=== PATIENT | female | born 1940 | race American Indian/Alaskan Native ===

== ENCOUNTER 2016-11-26 16:17 | Emergency (ER) | payer OTHER ==
[~2016-11-26] VITALS: Ht 149.9 cm; Wt 79.4 kg
[~2016-11-26 16:17] MED LIST: ALBUTEROL2.5 MG/3 M INH; AMOXICILLIN500 MG PO; AZITHROMYCIN250 MG PO; BACTRIM DS TAB1 EACH PO; FLONASE2 SPRAY NS; KEFLEX500 MG PO; OMEPRAZOLE20 MG PO; PREDNISONE20 MG PO; PROAIR HFA8.5 GM INH; SINGULAIR10 MG PO; TYLENOL WITH C1 EACH PO
[2016-11-26] MEDS ORDERED: AZITHROMYCIN250 MG PO (16:31)
[2016-11-26] MEDS ORDERED: PREDNISONE20 MG PO (16:32)
[2016-11-26] MEDS ORDERED: SINGULAIR10 MG PO (16:33)
== END 2016-11-26 17:52 | disposition home or self-care (01) ==
LOC: ED 16:17
DX: J45.901 Unspecified asthma with (acute) exacerbation (principal); K21.9 Gastro-esophageal reflux disease without esophagitis; Z87.891 Personal history of nicotine dependence; Z90.49 Acquired absence of other specified parts of digestive tract; Z98.51 Tubal ligation status; Z88.5 Allergy status to narcotic agent; Z88.8 Allergy status to other drugs, medicaments and biological substances; Z79.899 Other long term (current) drug therapy
CPT/HCPCS: 71020; 94640; 94667; 99283

== ENCOUNTER 2016-11-26 22:38 | Emergency (ER) | payer OTHER ==
[~2016-11-26] VITALS: Ht 149.9 cm; Wt 79.4 kg
--- NOTE | 2016-11-27 17:03 | EKG ---
[facility] [address] [facility] [place], [place] [address] Signed Normal sinus rhythm ST \T\ T wave abnormality, consider anterolateral ischemia Abnormal ECG No previous ECGs available Confirmed by SILVA CHRISTOPHER MD ([id number]) on 11/27/2016 5:03:30 PM Electronically Signed By: SILVA CHRISTOPHER MD 11/27/16 1703 PATIENT NAME: WM BARGER Electrocardiogram DATE OF : 40 PHYSICIAN: SILVA CHRISTOPHER MD REPORT #: [id number] REPORT IS CONFIDENTIAL AND NOT TO BE RELEASED WITHOUT AUTHORIZATION
== END 2016-11-27 01:02 | disposition home or self-care (01) ==
LOC: ED 22:38
DX: J20.9 Acute bronchitis, unspecified (principal); J45.909 Unspecified asthma, uncomplicated; K21.9 Gastro-esophageal reflux disease without esophagitis; Z90.49 Acquired absence of other specified parts of digestive tract; Z90.89 Acquired absence of other organs; Z98.51 Tubal ligation status; Z88.5 Allergy status to narcotic agent; Z88.6 Allergy status to analgesic agent; Z88.8 Allergy status to other drugs, medicaments and biological substances; Z79.899 Other long term (current) drug therapy; Z79.52 Long term (current) use of systemic steroids
CPT/HCPCS: 80053; 83880; 84484; 85025; 93005; 93010; 99283

== ENCOUNTER 2016-12-02 11:10 | Emergency (ER) | payer OTHER ==
[~2016-12-02] VITALS: Ht 149.9 cm; Wt 74.8 kg
[2016-12-02] MEDS ORDERED: DIFLUCAN100 MG PO (11:26)
--- NOTE | 2016-12-02 20:23 | EKG ---
[facility] [address] [facility] [place], [place] [address] Signed Normal sinus rhythm Anterior infarct , age undetermined ST \T\ T wave abnormality, consider lateral ischemia Abnormal ECG When compared with ECG of 26-NOV-2016 23:47, No significant change was found Confirmed by TABBY MALDONADO MD ([id number]) on 12/02/2016 8:22:57 PM Electronically Signed By: TABBY MALDONADO MD 12/02/162022 PATIENT NAME: WM BARGER Electrocardiogram DATE OF : 40 PHYSICIAN: TABBY MALDONADO MD REPORT #: [id number] REPORT IS CONFIDENTIAL AND NOT TO BE RELEASED WITHOUT AUTHORIZATION
== END 2016-12-02 14:38 | disposition home or self-care (01) ==
LOC: ED 11:10
DX: J45.901 Unspecified asthma with (acute) exacerbation (principal); K21.9 Gastro-esophageal reflux disease without esophagitis; J44.9 Chronic obstructive pulmonary disease, unspecified; Z90.49 Acquired absence of other specified parts of digestive tract; Z98.51 Tubal ligation status; Z88.5 Allergy status to narcotic agent; Z88.8 Allergy status to other drugs, medicaments and biological substances; Z79.899 Other long term (current) drug therapy; Z79.52 Long term (current) use of systemic steroids
CPT/HCPCS: 71010; 80053; 83605; 84484; 85025; 87040; 93005; 93010; 94640; 96374; 99283; J2930

== ENCOUNTER 2016-12-06 10:19 | Emergency (ER) | payer OTHER ==
[~2016-12-06] VITALS: Ht 149.9 cm; Wt 74.8 kg
[~2016-12-06 10:19] MED LIST changes: +DIFLUCAN100 MG PO
[2016-12-06] MEDS ORDERED: IPRAT-ALBUT 0.5-3 ML INH (10:37)
[2016-12-06] MEDS ORDERED: XANAX0.25 MG PO (11:15)
--- NOTE | 2016-12-06 15:39 | EKG ---
[facility] [address] [facility] [place], [place] [address] Signed Normal sinus rhythm Anterior infarct (cited on or before 02-DEC-2016) ST \T\ T wave abnormality, consider lateral ischemia , similar to 12/02/16 EKG. Abnormal ECG When compared with ECG of 02-DEC-2016 11:18, No significant change was found Confirmed by SILVA CHRISTOPHER MD ([id number]) on 12/06/2016 3:39:30 PM Electronically Signed By: SILVA CHRISTOPHER MD 12/06/16 1539 PATIENT NAME: WM BARGER Electrocardiogram DATE OF : 40 PHYSICIAN: SILVA CHRISTOPHER MD REPORT #: [id number] REPORT IS CONFIDENTIAL AND NOT TO BE RELEASED WITHOUT AUTHORIZATION
== END 2016-12-06 11:50 | disposition home or self-care (01) ==
LOC: ED 10:19
DX: F41.9 Anxiety disorder, unspecified (principal); K21.9 Gastro-esophageal reflux disease without esophagitis; J44.9 Chronic obstructive pulmonary disease, unspecified; Z90.49 Acquired absence of other specified parts of digestive tract; Z98.51 Tubal ligation status; Z88.5 Allergy status to narcotic agent; Z88.8 Allergy status to other drugs, medicaments and biological substances; Z79.899 Other long term (current) drug therapy; Z79.52 Long term (current) use of systemic steroids
CPT/HCPCS: 93005; 93010; 94640; 99283

== ENCOUNTER 2019-04-19 13:35 | Emergency (ER) | payer MEDICARE, OTHER ==
[~2019-04-19] VITALS: Ht 149.9 cm; Wt 74.8 kg
--- OUTSIDE RECORDS SUMMARY | ~2019-04-19 | XMS | Encounter Summary ---
Demographics + + + | Address | [address] | | | [place] [address] | + + + | Home Phone | | + + + | Preferred Language | Unknown | + + + | Marital Status | | + + + | Jehovah'S Witness Affiliation | Unknown | + + + | Race | Unknown | + + + | Ethnic Group | Unknown | + + + Author + + + | Author | [facility] | | | and [place] | + + + | Organization | [facility] | | | and [place] | + + + | Address | Unknown | + + + | Phone | Unavailable | + + + Support + + + + + | Name | Relationship | Address | Phone | + + + + + Mark Kaba | ECON | [address] | | | | | [place] | | | | | [address] | | + + + + + | Radha Patino | ECON | Unknown | | + + + + + Care Team Providers + +------+ + | Care Bag Shaker Name | Role | Phone | + +------+ + PCP | Unavailable | + +------+ + Reason for Visit +--------+ + | Reason | Comments | +--------+ + | Other | 2Y post op call | +--------+ + Encounter Details +--------+ + + + + | Date | Type | Department | Care Team | Description | +--------+ + + + + | 08/21/ | Telephone | [facility] | Derick Zuniga | Other (2Y post op | | 2013 | | NEUROSURGERY [address] | [facility] [address] | call ) | | | | [address] | [place] | | | | | [place] | [address] | | | | | [address] | [phone] | | | | | [phone] | | | +--------+ + + + + Social History + +-------+ +--------+------+ | Tobacco Use | Types | Packs/Day | Years | Date | | | | | Used | | + +-------+ +--------+------+ | Never Assessed | | | | | + +-------+ +--------+------+ + + + | Sex Assigned at | Date Recorded | | | | + + + | Not on file | | + + + + + + + | Job Start Date | Occupation | Industry | + + + + | Not on file | Not on file | Not on file | + + + + + + + + | Travel History | Travel Start | Travel End | + + + + + + | No recent travel history available. | + + documented as of this encounter Plan of Treatment Not on filedocumented as of this encounter Visit Diagnoses Not on filedocumented in this encounter"
--- OUTSIDE RECORDS SUMMARY | ~2019-04-19 | XMS | Encounter Summary ---
Demographics + + + | Address | [address] | | | [place] [address] | + + + | Home Phone | | + + + | Preferred Language | Unknown | + + + | Marital Status | | + + + | Mormonism Affiliation | Unknown | + + + | Race | Unknown | + + + | Ethnic Group | Unknown | + + + Author + + + | Author | [facility] | | | and [place] | + + + | Organization | [facility] | | | and [place] | + + + | Address | Unknown | + + + | Phone | Unavailable | + + + Support + + + + + | Name | Relationship | Address | Phone | + + + + + Mark Kaba | ECON | [address] | | | | | [place] | | | | | [address] | | + + + + + | Radha Patino | ECON | Unknown | | + + + + + Care Team Providers + +------+ + | Care Gsa Coordinator Name | Role | Phone | + +------+ + | Jared Hahn PA-C | PCP | | + +------+ + Encounter Details +--------+ + + + + | Date | Type | Department | Care Team | Description | +--------+ + + + + | 12/08/ | Imaging | [facility] | Provider, | | | 2017 | Exam | [facility] EXTER[facility] | [facility] [place] [address] | | | | | IMAGING | [place] | | | | | [phone] | [place] [address] | | +--------+ + + + + Social History + +-------+ +--------+ + | Tobacco Use | Types | Packs/Day | Years | Date | | | | | Used | | + +-------+ +--------+ + | Former Smoker | | 0.01 | 2 | Quit: 01/07/1974 | + +-------+ +--------+ + + + | Comments: few puffs of tobacco as a teenager | + + + + +---------+ + | Alcohol Use | Drinks/Week | oz/Week | Comments | + + +---------+ + | No | | | | + + +---------+ + + + + | Sex Assigned at [...] Not on filedocumented as of this encounter Procedures + +--------+ + + + | Procedure Name | Priori | Date/Time | Associated Diagnosis | Comments | | | ty | | | | + +--------+ + + + | XR CHEST 2 VIEWS | Routin | 06/13/2016 | | Results for this | | | e | 1:55 AM | | procedure are in the | | | | PST | | results section. | + +--------+ + + + documented in this encounter Results XR Chest 2 VW (06/13/2016 1:55 AM PST) + + | Specimen | + + | | + + + + + | Narrative | Performed At | + + + | External films for comparison only - no result from [facility]. | [facility] | + + + + +---------+ + + | Performing | Address | City/State/Zipcode | Phone Number | | Organization | | | | + +---------+ + + | [facility] | | | | + +---------+ + + documented in this encounter Visit Diagnoses Not on filedocumented in this encounter"
--- OUTSIDE RECORDS SUMMARY | ~2019-04-19 | XMS | Encounter Summary ---
Demographics + + + | Address | [address] | | | [place] [address] | + + + | Home Phone | | + + + | Preferred Language | Unknown | + + + | Marital Status | | + + + | Druze Affiliation | Unknown | + + + | Race | Unknown | + + + | Ethnic Group | Unknown | + + + Author + + + | Author | [facility] | | | and [place] | + + + | Organization | [facility] | | | and [place] | + + + | Address | Unknown | + + + | Phone | Unavailable | + + + Support + + + + + | Name | Relationship | Address | Phone | + + + + + Mark Kaba | ECON | [address] | | | | | [place] | | | | | [address] | | + + + + + | Radha Patino | ECON | Unknown | | + + + + + Care Team Providers + +------+ + | Care Domestic Violence Counselor Name | Role | Phone | + +------+ + PCP | Unavailable | + +------+ + Encounter Details +--------+ + + + + | Date | Type | Department | Care Team | Description | +--------+ + + + + | 02/19/ | Hospital | [facility] | Eugene Cuevas MD | | | 2010 | Encounter | MED CTR MP INTRA OP | [address] [place] | | | | | [address] | [address] [place], [place] | | | | | [place], [place] | [address] | | | | | [address] | | | | | | [phone] | | | +--------+ + + + [...] | + +--------+ + + + | HELICOBACTER PYLORI | Routin | 02/19/2011 | | Results for this | | BIOPSY | e | 1:51 PM | | procedure are in the | | | | PDT | | results section. | + +--------+ + + + documented in this encounter Results Helicobactor pylori Biopsy (02/19/2011 1:51 PM PDT) + + + + + + | Component | Value | Ref Range | Performed | Pathologist | | | | | At | Signature | + + + + + + | [facility]STR[facility] | Negative for Urease | | [facility] | | | BIOPSY | | | [facility] | | | UREASE TEST | | | MEDICAL | | | | | | CENTER - | | | | | | LABORATORY | | + + + + + + + + | Specimen | + + | | + + + + + + + | Performing | Address | City/State/Zipcode | Phone Number | | Organization | | | | + + + + + | [facility] | [address] | [place] | [phone] | | [facility] | | [address] | | | - LABORATORY | | | | + + + + + | [facility] | [address] | [place] | | | [facility] | | [address] | | | - LABORATORY | | | | + + + + + documented in this encounter Visit Diagnoses Not on filedocumented in this encounter"
--- OUTSIDE RECORDS SUMMARY | ~2019-04-19 | XMS | Encounter Summary ---
Demographics + + + | Address | [address] | | | [place] [address] | + + + | Home Phone | | + + + | Preferred Language | Unknown | + + + | Marital Status | | + + + | Yarsanism Affiliation | Unknown | + + + | Race | Unknown | + + + | Ethnic Group | Unknown | + + + Author + + + | Author | [facility] | | | and [place] | + + + | Organization | [facility] | | | and [place] [...] [place] | | | | | [address] | | + + + + + | Radha Patino | ECON | Unknown | | + + + + + Care Team Providers + +------+ + | Care Briquetter Operator Name | Role | Phone | + +------+ + PCP | Unavailable | + +------+ + Encounter Details +--------+ + + + + | Date | Type | Department | Care Team | Description | +--------+ + + + + | 06/30/ | Hospital | [facility] | | | | 1993 | Encounter | MED CTR EMERGENCY | | | | | | CENTER [address] | | | | | | [place] | | | | | | [address] | | | | | | [phone] | | | +--------+ + + + [...]
--- OUTSIDE RECORDS SUMMARY | ~2019-04-19 | XMS | Encounter Summary ---
Demographics + + + | Address | [address] | | | [place] [address] | + + + | Home Phone | | + + + | Preferred Language | Unknown | + + + | Marital Status | | + + + | Pentecostal Affiliation | Unknown | + + + | Race | Unknown | + + + | Ethnic Group | Unknown | + + + Author + + + | Author | [facility] | | | and [place] | + + + | Organization | [facility] | | | and [place] | [...] [place] | | | | | [address] | | + + + + + | Radha Patino | ECON | Unknown | | + + + + + Care Team Providers + +------+ + | Care Compliance Attorney Name | Role | Phone | + +------+ + PCP | Unavailable | + +------+ + Encounter Details +--------+ + + + + | Date | Type | Department | Care Team | Description | +--------+ + + + + | 02/19/ | Hospital | [facility] | Eugene Cuevas MD | | | 2010 | Encounter | MED CTR MP INTRA OP | [address] [place] | | | | | [address] | [address] [place], [place] | | | | | [place], [place] | [address] | | | | | [address] | | | | | | [phone] | | | +--------+ + + + [...] [address] | [place] | [phone] | | [facility] | | [address] | | | - LABORATORY | | | | + + + + + | [facility] | [address] | [place] | | | [facility] | | [address] | | | - LABORATORY | | | | + + + + + documented in this encounter Visit Diagnoses Not on filedocumented in this encounter"
--- OUTSIDE RECORDS SUMMARY | ~2019-04-19 | XMS | Encounter Summary ---
Demographics + + + | Address | [address] | | | [place] [address] | + + + | Home Phone | | + + + | Preferred Language | Unknown | + + + | Marital Status | | + + + | Protestant Affiliation | Unknown | + + + | Race | Unknown | + + + | Ethnic Group | Unknown | + + + Author + + + | Author | [facility] | | | and [place] | + + + | Organization | [facility] | | | and [place] | [...] [place] | | | | | [address] | | + + + + + | Radha Patino | ECON | Unknown | | + + + + + Care Team Providers + +------+ + | Care Seo Consultant Name | Role | Phone | + +------+ + PCP | Unavailable | + +------+ + Encounter Details +--------+ + + + + | Date | Type | Department | Care Team | Description | +--------+ + + + + | 07/20/ | Hospital | [facility] | Derick Zuniga | | | 2011 - | Encounter | MED CTR SURGICAL | [place] | | | | | [address] [place] | [place] | | | 07/21/ | | [place] [address] | [address] | | | 2011 | | [phone] | [phone] | | | | | | | | +--------+ + + + [...] + +--------+ + + + | XR SPINE 1 VW | | 07/21/2011 | | Results for this | | | | 12:30 PM | | procedure are in the | | | | PDT | | results section. | + +--------+ + + + documented in this encounter Results XR Spine 1 Vw (07/21/2011 12:30 PM PDT) + + | Specimen | + + | | + + + + + | Narrative | Performed At | + + + | [facility] Diagnostic Imaging Department | [place] | | [address] [facility] | [facility] | | [facility] | DIAG IMG | | CLINICAL HISTORY: POSTOP C5-6 AND C6-7 ANTERIOR CERVICAL DISKECTOMY | | | AND FUSION. FINDINGS: Lateral views of the cervical spine show | | | an anterior compression plate extending from C5 t o C7. Interbody | | | bone grafts are present at C5-6 and C6-7. Alignment is normally | | | maintained. Degene rative changes are also seen at the C4-5 level | | | with sclerotic vertebral endplates. Adjacent soft tis sues within | | | the normal range. IMPRESSION: 1. ANTICIPATED POSTOP C5-6, C6-7 | | | ACDF CHANGES. Dictated Date/Time: 07/22/2011 11:12 Transcribed | | | Date/Time: 07/22/2011 11:27 Hydraulic Chair Assembler: | | | <Electronically Signed by Cesar Thomson MD> 07/22/11 1504 | | + + + + + | Procedure Note | + + | Steven, Rad Conversion - 06/08/2013 4:58 PM [facility] | | Diagnostic Imaging Department [address] [facility] | | LATERAL VIEW CERVICAL SPINE CLINICAL HISTORY: POSTOP | | C5-6 AND C6-7 ANTERIOR CERVICAL DISKECTOMY AND FUSION. FINDINGS: Lateral views of the | | cervical spine show an anterior compression plate extending from C5 to C7. Interbody | | bone grafts are present at C5-6 and C6-7. Alignment is normally maintained. | | Degenerative changes are also seen at the C4-5 level with sclerotic vertebral endplates. | | Adjacent soft tissues within the normal range. IMPRESSION: 1. ANTICIPATED POSTOP C5-6, | | C6-7 ACDF CHANGES. Dictated Date/Time: 07/22/2011 11:12Transcribed Date/Time: | | 07/22/2011 11:27Transcriptionist: <Electronically Signed by Cesar Thomson MD> | | 07/22/11 1504 | |o C7. Interbody bone grafts are present at C5-6 and C6-7. Alignment is normally maintaine d. Degene | |rative changes are also seen at the C4-5 level with sclerotic vertebral endplates. Adjacen t soft tis | |sues within the normal range. | | | |IMPRESSION: | |1. ANTICIPATED POSTOP C5-6, C6-7 ACDF CHANGES. | | | |Dictated Date/Time: 07/22/2011 11:12 | |Transcribed Date/Time: 07/22/2011 11:27 | |Hydraulic Chair Assembler: | |<Electronically Signed by Cesar Thomson MD> 07/22/11 1504 | + + + +---------+ + + | Performing | Address | City/State/Zipcode | Phone Number | | Organization | | | | + +---------+ + + | [place] | | | | | [place] | | | | + +---------+ + + documented in this encounter Visit Diagnoses Not on filedocumented in this encounter"
--- OUTSIDE RECORDS SUMMARY | ~2019-04-19 | XMS | Encounter Summary ---
Demographics + + + | Address | [address] | | | [place] [address] | + + + | Home Phone | | + + + | Preferred Language | Unknown | + + + | Marital Status | | + + + | Zoroastrian Affiliation | Unknown | + + + | Race | Unknown | + + + | Ethnic Group | Unknown | + + + Author + + + | Author | [facility] | | | and [place] | + + + | Organization | [facility] | | | and [place] [...] [place] | | | | | [address] | | + + + + + | Radha Patino | ECON | Unknown | | + + + + + Care Team Providers + +------+ + | Care Manager Willow Name | Role | Phone | + +------+ + PCP | Unavailable | + +------+ + Encounter Details +--------+ + + + + | Date | Type | Department | Care Team | Description | +--------+ + + + + | 01/12/ | Abstract | [facility] | [facility] | | | 2011 | | Conversion Location | SR | | | | | [phone] | | | +--------+ + + + [...] + + documented as of this encounter Last Filed Vital Signs + + + + + | Vital Sign | Reading | Time Taken | Comments | + + + + + | Blood Pressure | 120/72 | 02/11/2011 12:00 AM | | | | | PDT | | + + + + + | Pulse | - | - | | + + + + + | Temperature | - | - | | + + + + + | Respiratory Rate | - | - | | + + + + + | Oxygen Saturation | - | - | | + + + + + | Inhaled Oxygen | - | - | | | Concentration | | | | + + + + + | Weight | 78.5 kg (173 lb) | 02/11/2011 12:00 AM | | | | | PDT | | + + + + + | Height | 149.9 cm (4' 11") | 02/11/2011 12:00 AM | | | | | PDT | | + + + + + | Body Mass Index | 34.94 | 02/11/2011 12:00 AM | | | | | PDT | | + + + + + documented in this encounter Plan of Treatment Not on filedocumented as of this encounter Visit Diagnoses Not on filedocumented in this encounter
--- OUTSIDE RECORDS SUMMARY | ~2019-04-19 | XMS | Encounter Summary ---
Demographics + + + | Address | [address] | | | [place] [address] | + + + | Home Phone | | + + + | Preferred Language | Unknown | + + + | Marital Status | | + + + | Cheondoism Affiliation | Unknown | + + + | Race | Unknown | + + + | Ethnic Group | Unknown | + + + Author + + + | Author | [facility] | | | and [place] | + + + | Organization | [facility] | | | and [place] | + + + | Address | Unknown | + + + | Phone | Unavailable | + + + Support + + + + + | Name | Relationship | Address | Phone | + + + + + Mark Kaba | ECON | [address] | | | | | [place] | | | | | [address] | | + + + + + | Radha Patino | ECON | Unknown | | + + + + + Care Team Providers + +------+ + | Care Kindergarten Paraprofessional Name | Role | Phone | + +------+ + | Caro Clement PA-C | PCP | | + +------+ + Reason for Visit +--------+ + | Reason | Comments | +--------+ + | Asthma | 6 mo follow up | +--------+ + Evaluate & Treat (Routine) +--------+--------+ + + + + | Status | Reason | Specialty | Diagnoses / | Referred By | Referred To | | | | | Procedures | Contact | Contact | +--------+--------+ + + + + | Closed | | Pulmonary | Diagnoses | Urbano, | Jermaine, | | | | Disease / | Moderate | Caro Roach, | MD Terry | | | | Pulmonology | persistent | PA-C [address] | [address] | | | | | asthma, | | [place], | | | | | uncomplicate | [place] | [place] [address] | | | | | d | WAY | Phone: | | | | | Procedures | [place], | [phone] | | | | | F[address] | [place] [address] | Fax: | | | | | CHAYITO DEAN | Phone: | [phone] | | | | | 01/20/18 | [phone] | | | | | | | Fax: | | | | | | | [phone] | | +--------+--------+ + + + + Encounter Details +--------+---------+ + + + | Date | Type | Department | Care Team | Description | +--------+---------+ + + + | 01/20/ | Office | [facility] | Terry Dean, | Moderate persistent | | 2018 | Visit | PULMONARY [address] | MD [address] | asthma without | | | | [place], | [place] | complication | | | | [place] [address] | [address] | (Primary Dx) | | | | [phone] | | | +--------+---------+ + + + Social History + + + +--------+ + | Tobacco Use | Types | Packs/Day | Years | Date | | | | | Used | | + + + +--------+ + | Former Smoker | Cigarettes | 0.01 | 2 | 11/27/1961 - | | | | | | 01/07/1974 | + + + +--------+ + + +---+---+---+ | Smokeless Tobacco: | | | | | Never Used | | | | + +---+---+---+ + + +---------+ + | Alcohol Use [...] + + + | Blood Pressure | 124/68 | 01/20/2018 2:56 PM | | | | | PDT | | + + + + + | Pulse | 87 | 01/20/2018 2:56 PM | | | | | PDT | | + + + + + | Temperature | - | - | | + + + + + | Respiratory Rate | - | - | | + + + + + | Oxygen Saturation | 95% | 01/20/2018 2:56 PM | Room Air | | | | PDT | | + + + + + | Inhaled Oxygen | - | - | | | Concentration | | | | + + + + + | Weight | 75.5 kg (166 lb 7.2 | 01/20/2018 2:56 PM | | | | oz) | PDT | | + + + + + | Height | 148.6 cm (4' 10.5") | 01/20/2018 2:56 PM | | | | | PDT | | + + + + + | Body Mass Index | 34.2 | 01/20/2018 2:56 PM | | | | | PDT | | + + + + + documented in this encounter Patient Instructions Patient Instructions Terry Dean MD - 01/20/2018 3:00 PM PDT Asthma (Adult) Asthma is a disease where the medium and small air passages within the lung go into spasm and restrict the flow of air. Inflammation and swelling of the airways cause further blocka ge. During an acute asthma attack, these factors cause trouble breathing, wheezing, cough an d chest tightness. An asthma attack can be triggered by many things. Common triggers include infections such a s the common cold, bronchitis, and pneumonia. Irritants such as smoke or pollutants in the a ir, very cold air, emotional upset, and exercise can also trigger an attack. Inmany adults with asthma, allergies todust, mold, pollen and animal dander can cause an asthma attack. Skipping doses of daily asthma medicine can also bring on an asthma attack. Asthma can be controlled using theproper medicines prescribed by your healthcare provider and avoiding exposure to known triggers including allergens and irritants. Home care Take prescribed medicine exactly at the times advised. If you need medicine such as from a hand held inhaler or aerosol breathing machine more than every 4 hours, contact your [facility] provider or seek immediate medical attention. If prescribed an antibiotic or predniso ne, take all of the medicine as prescribed, even if you are feeling better after a few days. Don't smoke. Avoid being exposed to the smoke of others. Some people with asthma have worsening of their symptoms when they take aspirin and non- steroidal or fever-reducing medicines like ibuprofen and naproxen. Talk to your healthcare p mel[place] if you think this may apply to you. Follow-up care Follow up with your healthcare provider, or as advised. Always bring all of your current me dicines to any appointments with your healthcare provider. Also bring a complete list of med icines eventhose not taken for asthma. If you don't already have one, talk to your health are provider about developing your own "Asthma Action Plan." A pneumococcal (pneumonia)vaccine and yearly flu shot (every fall) are recommended. Ask y our doctor about this. When to seek medical advice Call your healthcare provider right away if any of these occur: Increased wheezing or shortness of breath Need to use your inhalers more often than usual without relief Fever of 100.4F (38C) or higher, or as directed by your healthcare provider Coughing up lots of dark-colored or bloody sputum (mucus) Chest pain with each breath If you use a peak flow meter as part of an Asthma Action Plan, and you are still in the yellow zone (50% to 80%) 15 minutes after using inhaler medicine. Call 911 Call 911 if any of the following occur Trouble walking or talking because of shortness of breath If you use a peak flow meter as part of an Asthma Action Plan andyou are still in the red zone (less than 50%) 15 minutes after using inhaler medicine Lips or fingernails turning garvin or blue Date Last Reviewed: 08/30/201619996986-8657 [employer]. [address] [place] [address]. All righ ts reserved. This information is not intended as a substitute for professional medical care. Always follow your healthcare professional's instructions. documented in this encounter Progress Notes Terry Dean MD - 01/20/2018 3:00 PM PDTFormatting of this note might be different f rom the original. Pulmonary Follow Up 01/20/2018 HPI Sherron Patino is a 77 y.o. female patient of Caro Clement PA-C here tosam for follow up of asthma. The patient's last visit was on 07/19/17. Since the last visit she feels like their asthma has been stable. They have not had any acute illnesses resulting in worsening asthma sympto ms. They have not required a burst of prednisone since our last appointment. Specifically 0 tapers of prednisone have occurred over the interval. Lastly Sherron notes 0 ED visits and 0 hospitalizations for asthma have occurred since the last appointment. Their controller medication regimen currently consists of Dulera and Singulair. They do fe el like this medication regimen is effective at controlling their symptoms. Currently Sherron is using their rescue albuterol, Proventil, 0 times a day. No Duoneb use of late. Triggers of their asthma include smokey air conditions. She does not have nocturnal sympto ms of wheezing, chest tightness or cough. She does not measure their peak flow. Currently Sherron reports being able to walk <50 feet at their own pace on level ground befor e becoming symptomatic from right knee. They are not exercising regularly. She does not cough chronically, and does not produce mucous. Sherron does not report symptoms of heartburn or acid reflux. They have not had recent sympto ms of nasal congestion, runny nose or post nasal drip. New triggers since the last appointment include -none. Sherron Patino is not smoking cigarettes. The patient have received this year's influenza vaccination. They are up to date with thei r Pneumovax and Prevnar 13. Past Medical History Past Medical History: Diagnosis Date Abdominal hernia Acid reflux disease Allergic rhinitis Alopecia Arthritis Left knee Asthma 2003 Carpal tunnel syndrome Left Cervicalgia Chronic right shoulder pain COPD (chronic obstructive pulmonary disease) ([facility]) patient unware of diagnosis Degenerative joint disease of sacroiliac joint Dermatophytosis of left foot Enthesopathy of hip Right Esophageal reflux Lumbar scoliosis Obesity Osteoarthritis Vitamin D deficiency Allergies: Allergies Allergen Reactions Meclizine Hcl Swelling "Throat started closing up" Hydrocodone Nausea And Vomiting Ibuprofen Nausea And Vomiting Oxycodone Nausea And Vomiting Propoxyphene Nausea And Vomiting Medications: Current Outpatient Prescriptions: albuterol (PROVENTIL HFA) 90 mcg/puff inhaler, Inhale 2 puffs into the lungs every 4 h ours as needed for Wheezing or Shortness of Breath., Disp: , Rfl: albuterol-ipratropium (DUONEB) 2.5-0.5 mg/3 mL SOLN, Take 3 mLs by nebulization every 4 hours as needed., Disp: 360 mL, Rfl: famotidine (PEPCID) 20 mg tablet, Take 20 mg by mouth 2 times daily., Disp: , Rfl: fluticasone (FLONASE) 50 mcg/nasal spray, 1 spray by Each Nare route Daily., Disp: , R fl: loratadine (CLARITIN) 10 mg tablet, Take 10 mg by mouth Daily as needed for Allergies. , Disp: , Rfl: mometasone-formoterol (DULERA) 200-5 mcg/puff inhaler, Inhale 2 puffs into the lungs T wice Daily., Disp: 8.8 g, Rfl: 5 montelukast (SINGULAIR) 10 mg tablet, Take 10 mg by mouth nightly., Disp: , Rfl: Immunizations: Immunization History Administered Date(s) Administered INFLUENZA 65 Y OR >, TRIVALENT HIGH-DOSE 01/12/2016, 02/14/2017, 01/04/2018 INFLUENZA PF 18 Y OR >,TRIVALENT RECOMBINANT 01/30/2014 PNEUMOCOCCAL CONJUGATE 13-VALENT (PCV13) 01/12/2016 PNEUMOCOCCAL POLYSACCHARIDE 23-VALENT (PPSV23) 02/11/1998, 02/12/2003, 06/18/2009 Objective BP 124/68 | Pulse 87 | Ht 1.486 m (4' 10.5") | Wt 75.5 kg (166 lb 7.2 oz) | SpO2 95% Co mment: Room Air | BMI 34.20 kg/m Appearance: Alert, cooperative, no distress, appears stated age. Head: Normocephalic, without obvious abnormality, atraumatic. Eyes: PERRL, conjunctiva/corneas clear. Nose: Nares normal, septum midline, mucosa normal, no drainage or sinus tenderness. Throat: Lips, mucosa, and tongue normal. Teeth/dentures normal. No thrush. Neck: Supple, symmetrical, no JVD. Lungs: No accessory muscle use, breath sounds are clear to auscultation bilaterally, no w heezes, crackles or rhonchi. No dullness to percussion. Chest Wall: No tenderness or deformity. Heart: Regular rate and rhythm, S1, S2 normal, no murmur, rub or gallop. Extremities: Extremities normal, atraumatic, no cyanosis, clubbing. none edema. Skin: Warm and dry. Lymph nodes: Cervical and supraclavicular nodes normal. Neurologic: Gait normal. Data Assessment 1. Asthma moderate persistent. Over the last 6 months Ms. Patino has not experienced symptoms concerning for worsening of her asthma. The patient continues to use Dulera 200/5 twice daily and Singulair nightly. Ms. Patino is up-to-date with respect to her seasonal influenza vaccination, Prevnar and Pneumovax. Overall it appears that the patient is had 1 2 exacerbations of her asthma over the last 12 13 months. It seems reasonable to maintain the patient's current controller regimen. If her symptoms remain well controlled over the next 12 months it would be reasonable to step down her asthm a therapy. Plan 1. Continue Dulera and Singulair as noted above. 2. The interval between pulmonary clinic follow-up appointments will be lengthened to 12 m onths. 3. High-dose seasonal influenza vaccination is recommended for January 2019. CC: [facility]bar-C documented in this encounter Plan of Treatment Not on filedocumented as of this encounter Visit Diagnoses + + | Diagnosis | + + | Moderate persistent asthma without complication - Primary Unspecified asthma | + + documented in this encounter
--- OUTSIDE RECORDS SUMMARY | ~2019-04-19 | XMS | Clinical Summary ---
Demographics + + + | Address | [address] | | | [place] [address] | + + + | Home Phone | | + + + | Preferred Language | Unknown | + + + | Marital Status | | + + + | Restorationism Affiliation | Unknown | + + + | Race | Unknown | + + + | Ethnic Group | Unknown | + + + Author + + + | Author | [facility] | | | and [place] | + + + | Organization | [facility] | | | and [place] | [...] [place] | | | | | [address] | | + + + + + | Radha Patino | ECON | Unknown | | + + + + + Care Team Providers + +------+ + | Care Erection Shop Supervisor Name | Role | Phone | + +------+ + | Caro Clement PA-C | PCP | | + +------+ + Allergies + + + + + + | Active Allergy | Reactions | Severity | Noted | Comments | | | | | Date | | + + + + + + | Hydrocodone | Nausea And Vomiting | Low | | | + + + + + + | Ibuprofen | Nausea And Vomiting | Low | | | + + + + + + | Meclizine Hcl | Swelling | High | 05/29/19 | "Throat started | | | | | 15 | closing up" | + + + + + + | Oxycodone | Nausea And Vomiting | Low | | | + + + + + + | Propoxyphene | Nausea And Vomiting | Low | | | + + + + + + Medications + + + +---------+------+------+-------+ | Medication | Sig | Dispensed | Refills | Star | End | Statu | | | | | | t | Date | s | | | | | | Date | | | + + + +---------+------+------+-------+ | loratadine | Take 10 mg by mouth | | 0 | | | Activ | | (CLARITIN) 10 mg | Daily as needed for | | | | | e | | tablet | Allergies. | | | | | | + + + +---------+------+------+-------+ | albuterol | Inhale 2 puffs into | | 0 | | | Activ | | (PROVENTIL HFA) 90 | the lungs every 4 | | | | | e | | mcg/puff inhaler | hours as needed for | | | | | | | | Wheezing or | | | | | | | | Shortness of Breath. | | | | | | + + + +---------+------+------+-------+ | fluticasone | 1 spray by Each Nare | | 0 | | | Activ | | (FLONASE) 50 | route Daily. | | | | | e | | mcg/nasal spray | | | | | | | + + + +---------+------+------+-------+ | montelukast | Take 10 mg by mouth | | 0 | | | Activ | | (SINGULAIR) 10 mg | nightly. | | | | | e | | tablet | | | | | | | + + + +---------+------+------+-------+ | famotidine | Take 20 mg by mouth | | 0 | | | Activ | | (PEPCID) 20 mg | 2 times daily. | | | | | e | | tablet | | | | | | | + + + +---------+------+------+-------+ | | Take 3 mLs by | 360 mL | 0 | 08/2 | | Activ | | albuterol-ipratropiu | nebulization every 4 | | | 9/20 | | e | | m (DUONEB) 2.5-0.5 | hours as needed. | | | 17 | | | | mg/3 mL SOLN | | | | | | | + + + +---------+------+------+-------+ | | Inhale 2 puffs into | 8.8 g | 5 | 05/2 | | Activ | | mometasone-formotero | the lungs Twice | | | 3/20 | | e | | l (DULERA) 200-5 | Daily. 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 utility | + + + +---+ | OSTEOARTHRITIS | | + +---+ | FATTY LIVER DISEASE | | + +---+ | ABDOMINAL PAIN | | + +---+ Resolved Problems + + + + | Problem | Noted | Resolved | | | Date | Date | + + + + | Moderate persistent asthma with acute exacerbation | 07/20/19 | | | | 18 | 8 | + + + + | COPD (chronic obstructive pulmonary disease) | 05/07/19 | | | | 15 | 7 | + + + + | Asthma exacerbation | 05/07/19 | | | | 15 | 7 | + + + + Immunizations + + + + | Name | Administration Dates | Next Due | + + + + | INFLUENZA 65 Y OR >, | 01/04/2018, 02/14/2017, 01/12/2016 | | | TRIVALENT HIGH-DOSE | | | + + + + | INFLUENZA PF 18 Y OR | 01/30/2014 | | | >,TRIVALENT | | | | RECOMBINANT | | | + + + + | PNEUMOCOCCAL | 01/12/2016 | | | CONJUGATE 13-VALENT | | | | (PCV13) | | | + + + + | PNEUMOCOCCAL | 06/18/2009, 02/12/2003, 02/11/1998 | | | POLYSACCHARIDE | | | | 23-VALENT (PPSV23) | | | + + + + Family History + + +------+ + | Medical History | Relation | Name | Comments | + + +------+ + | Diabetes, IDDM | Brother | | | + + +------+ + | * | Father | | in 50's | + + +------+ + | Cirrhosis | Father | | | + + +------+ + | * | Mother | | healthy and at 94 | + + +------+ + + +------+ + + | Relation | Name | Status | Comments | + +------+ + + | Brother | | | | + +------+ + + | Father | | | | + +------+ + + | Mother | | | | + +------+ + + Social History + + + [...] | | | + +---+---+---+ + + | Tobacco Cessation: Counseling Given: No | + + + + +---------+ + [...] recent travel history available. | + + Last Filed Vital Signs + + + [...] + + + + | Temperature | 36.3 C (97.3 F) | 12/01/2016 7:09 AM | | | | | PDT | | + + + + + | Respiratory Rate | 18 | 12/01/2016 8:00 AM | | | | | PDT [...] | | + + + + + Plan of Treatment + + + + + | Health Maintenance | Due Date | Last Done | Comments | + + + + + | Vaccine: | | | | | Dtap/Tdap/Td (1 - | 2 | | | | Tdap) | | | | + + + + + | Vaccine: Zoster (1 | | | | | of 2) | 1 | | | + + + + + | Breast Cancer | | | | | Screening | 6 | | | + + + + + | Adult Annual | | | | | Wellness Visit | 5 | | | + + + + + | Vaccine: Influenza | | 01/04/2018, 02/14/2017, | | | (#1) | 9 | 01/12/2016, Additional history | | | | | exists | | + + + + + | Vaccine: | Completed | 01/12/2016, 06/18/2009, | | | Pneumococcal 65+ | | 02/12/2003, Additional history | | | | | exists | | + + + + + Results Not on filefrom Last 3 Months Insurance + +--------+ +--------+-------+---------+--------+ | Payer | Benefi | Subscriber | Effect | Phone | Address | Type | | | t Plan | ID | dean | | | | | | / | | Dates | | | | | | Group | | | | | | + +--------+ +--------+-------+---------+--------+ | [facility] | S | [id number] | | | | Indemn | | SERVICE | YELLOW | | 014-Pr | | | ity | | | HAWK | | esent | | | | + +--------+ +--------+-------+---------+--------+ + +--------+ +--------+ + + | Guarantor Name | Accoun | Relation to | Date | Phone | Billing Address | | | t Type | Patient | of | | | | | | | | | | + +--------+ +--------+ + + | Sherron Patino | Person | Self [birth year] | [address] | | [place] | elsa/Seun | | 1941 | [phone] | [place] [address] | | | sahil | | | 5 (Home) | | + +--------+ +--------+ + + Advance Directives + + + + + | Type | Date Recorded | Patient | Explanation | | | | Music Executive | | + + + + + | Power of | | | | | Wood Router Hand | | | | + + + + + | Advance | 11/27/2016 6:51 | | | | Directive | AM | | | + + + + + + + + + + | Code Status | Date | Date | Comments | | | Activated | Inactivated | | + + + + + | Full Code | 11/27/2016 | 12/01/2016 | | | | 8:35 AM | 3:06 PM | | + + + + + + + + +---+ | | | | | + + + +---+ | Full Code | 11/27/2016 | 11/27/2016 | | | | 8:35 AM | 8:35 AM | | + + + +---+
--- OUTSIDE RECORDS SUMMARY | ~2019-04-19 | XMS | Clinical Summary ---
Demographics + + + | Address | [address] | | | [place] [address] | + + + | Home Phone | | + + + | Preferred Language | Unknown | + + + | Marital Status | | + + + | Mosque Affiliation | Unknown | + + + | Race | Unknown | + + + | Ethnic Group | Unknown | + + + Author + + + | Author | [facility] | | | and [place] | + + + | Organization | [facility] | | [...] [place] | | | | | [address] | | + + + + + | Radha Patino | ECON | Unknown | | + + + + + Care Team Providers + +------+ + | Care Roll Plugger Machine Operator Name | Role | Phone | [...] + + + | Overview: Problem list crane engineer utility | + + + +---+ | [...] | | | + +--------+ +--------+-------+---------+--------+ | [facility] | S | [id number] | | | | Indemn | | [...] | 1941 | [phone] | [place] [address] | | | sahil | | | 5 (Home) | | + +--------+ +--------+ + + Advance Directives + + + + + | Type | Date Recorded | Patient | Explanation | | | | Md Ophthalmologist | | + + + + + | Power of | | | | | Creative Engagement Director | | | | + + + [...]
--- OUTSIDE RECORDS SUMMARY | ~2019-04-19 | XMS | Encounter Summary ---
Demographics + + + | Address | [address] | | | [place] [address] | + + + | Home Phone | | + + + | Preferred Language | Unknown | + + + | Marital Status | | + + + | Latter Day Affiliation | Unknown | + + + | Race | Unknown | + + + | Ethnic Group | Unknown | + + + Author + + + | Author | [facility] | | | and [place] | + + + | Organization | [facility] | | | and [place] | + + + | Address | Unknown | + + + | Phone | Unavailable | + + + Support + + + + + | Name | Relationship | Address | Phone | + + + + + Mark Kaab | ECON | [address] | | | | | [place] | | | | | [address] | | + + + + + | Radha Patino | ECON | Unknown | | + + + + + Care Team Providers + +------+ + | Care Billet Shearer Name | Role | Phone | + +------+ + PCP | Unavailable | + +------+ + Encounter Details +--------+ + + + + | Date | Type | Department | Care Team | Description | +--------+ + + + + | 02/18/ | Hospital | [facility] | Davi Whitten | HEADACHE | | 2002 | Encounter | CON[address] | C MD | | | | | [address] | | | | | | [place] | | | | | | [address] | | | | | | [phone] | | | +--------+ + + + [...] + | Diagnosis | + + | Headache(784.0) Headache | + + documented in this encounter"
--- OUTSIDE RECORDS SUMMARY | ~2019-04-19 | XMS | Encounter Summary ---
Demographics + + + | Address | [address] | | | [place] [address] | + + + | Home Phone | | + + + | Preferred Language | Unknown | + + + | Marital Status | | + + + | Confucianist Affiliation | Unknown | + + + | Race | Unknown | + + + | Ethnic Group | Unknown | + + + Author + + + | Author | [facility] | | | and [place] | + + + | Organization | [facility] | | | and [place] [...] [place] | | | | | [address] | | + + + + + | Radha Patino | ECON | Unknown | | + + + + + Care Team Providers + +------+ + | Care Chemical Detection Expert Name | Role | Phone | + [...] | SR | | | | | [phone] | | | +--------+ + + + [...]
--- OUTSIDE RECORDS SUMMARY | ~2019-04-19 | XMS | Encounter Summary ---
Demographics + + + | Address | [address] | | | [place] [address] | + + + | Home Phone | | + + + | Preferred Language | Unknown | + + + | Marital Status | | + + + | Adventism Affiliation | Unknown | + + + | Race | Unknown | + + + | Ethnic Group | Unknown | + + + Author + + + | Author | [facility] | | | and [place] | + + + | Organization | [facility] | | | and [...] [place] | | | | | [address] | | + + + + + | Radha Patino | ECON | Unknown | | + + + + + Care Team Providers + +------+ + | Care Roller Cleaner Name | Role | Phone | + +------+ + | Caro Clement PA-C PCP | | + +------+ + Reason for Visit + + + | Reason | Comments | + + + | Medication Refill | | + + + Encounter Details +--------+--------+ + + + | Date | Type | Department | Care Team | Description | +--------+--------+ + + + | 09/21/ | Refill | [facility] | Terry Dean, | Medication Refill | | 2017 | | PULMONARY [address] | MD [address] | | | | | [place], | [place], [place] | | | | | [place] [address] | [address] | | | | | [phone] | | | +--------+--------+ + + + Social History + + [...] + | Moderate persistent asthma without complication Unspecified asthma | + + documented in this encounter"
--- OUTSIDE RECORDS SUMMARY | ~2019-04-19 | XMS | Encounter Summary ---
Demographics + + + | Address | [address] | | | [place] [address] | + + + | Home Phone | | + + + | Preferred Language | Unknown | + + + | Marital Status | | + + + | Islam Affiliation | Unknown | + + + | Race | Unknown | + + + | Ethnic Group | Unknown | + + + Author + + + | Author | [facility] | | | and [place] | + + + | Organization | [facility] | | | and [place] [...] [place] | | | | | [address] | | + + + + + | Radha Patino | ECON | Unknown | | + + + + + Care Team Providers + +------+ + | Care Metal Reclamation Kettle Tender Name | Role | Phone | + +------+ + PCP | Unavailable | + +------+ + Encounter Details +--------+ + + + + | Date | Type | Department | Care Team | Description | +--------+ + + + + | 06/30/ | Hospital | [facility] | | | | 1993 | Encounter | [facility] | | | | | C[facility] [address] | | | | | | [place] | | | | | | [address] | | | | | | [phone] | | | +--------+ + + + [...]
--- OUTSIDE RECORDS SUMMARY | ~2019-04-19 | XMS | Encounter Summary ---
Demographics + + + | Address | [address] | | | [place] [address] | + + + | Home Phone | | + + + | Preferred Language | Unknown | + + + | Marital Status | | + + + | Gnosticist Affiliation | Unknown | + + + | Race | Unknown | + + + | Ethnic Group | Unknown | + + + Author + + + | Author | [facility] | | | and [place] | + + + | Organization | [facility] | | | and [place] [...] [place] | | | | | [address] | | + + + + + | Radha Patino | ECON | Unknown | | + + + + + Care Team Providers + +------+ + | Care Electrical Power Engineer Name | Role | Phone | + [...] [address] | | | | | [place], | [place], [place] | | | | | [place] [address] | [address] | | | | | [phone] | | | +--------+--------+ + + + [...]
--- OUTSIDE RECORDS SUMMARY | ~2019-04-19 | XMS | Encounter Summary ---
Demographics + + + | Address | [address] | | | [place] [address] | + + + | Home Phone | | + + + | Preferred Language | Unknown | + + + | Marital Status | | + + + | Yazdanism Affiliation | Unknown | + + + | Race | Unknown | + + + | Ethnic Group | Unknown | + + + Author + + + | Author | [facility] | | | and [place] | + + + | Organization | [facility] | | | and [place] [...] [place] | | | | | [address] | | + + + + + | Radha Patino | ECON | Unknown | | + + + + + Care Team Providers + +------+ + | Care Cop Breaker Name | Role | Phone | + +------+ + | Jared Hahn PA-C | PCP | | + +------+ + Reason for Visit +--------+ + | Reason | Comments | +--------+ + | Asthma | 3 wk follow up | +--------+ + Evaluate & Treat (Routine) +--------+--------+ + + + + | Status | Reason | Specialty | Diagnoses / | Referred By | Referred To | | | | | Procedures | Contact | Contact | +--------+--------+ + + + + | Closed | | Pulmonary | Diagnoses | Jovani, | Jermaine, | | | | Disease / | Chronic | Jared East, | MD Terry | | | | Pulmonology | obstructive | PA-C [address] | [address] | | | | | pulmonary | [place] | [place], | | | | | disease, | WAY | [place] [address] | | | | | unspecified | Lilian, | Phone: | | | | | ([facility]) | [place] [address] | [phone] | | | | | Procedures | Phone: | Fax: | | | | | F/U | [phone] | [phone] | | | | | | Fax: | | | | | | | [phone] | | +--------+--------+ + + + + Encounter Details +--------+---------+ + + + | Date | Type | Department | Care Team | Description | +--------+---------+ + + + | 01/18/ | [facility] | Terry Dean, | Moderate persistent | | 2017 | Visit | PULMONARY [address] | MD [address] | asthma without | | | | [place], | [place], [place] | complication | | | | [place] [address] | [address] | (Primary Dx) | | | | [phone] | | | +--------+---------+ + + + [...] + + + | Blood Pressure | 120/70 | 01/18/2017 2:44 PM | | | | | PDT | | + + + + + | Pulse | 86 | 01/18/2017 2:44 PM | | | | | PDT | | + + + + + | Temperature | - | - | | + + + + + | Respiratory Rate | - | - | | + + + + + | Oxygen Saturation | 96% | 01/18/2017 2:44 PM | | | | | PDT | | + + + + + | Inhaled Oxygen | - | - | | | Concentration | | | | + + + + + | Weight | 78.3 kg (172 lb 11.2 | 01/18/2017 2:44 PM | | | | oz) | PDT | | + + + + + | Height | 149.9 cm (4' 11") | 01/18/2017 2:44 PM | | | | | PDT | | + + + + + | Body Mass Index | 34.88 | 01/18/2017 2:44 PM | | | | | PDT | | + + + + + documented in this encounter Patient Instructions Patient Instructions Terry Dean MD - 01/18/2017 3:00 PM PDT Asthma (Adult) Asthma is a disease where the medium and small air passages within the lung go into spasm and restrict the flow of air. Inflammation and swelling of the airways cause further restri ction. During an acute asthma attack, these factors cause difficulty breathing, wheezing, co ugh and chest tightness. An asthma attack can be triggered by many things. Common triggers include infections such a s the common cold, bronchitis, pneumonia. Irritants such as smoke or pollutants in the air, emotional upset, and exercise can also trigger an attack. Inmany adults with asthma, aller gies todust, mold, pollen and animal dander can [...] more than every 4 hours, contact [facility] or seek immediate medical attention. If prescribed an antibiotic or predniso ne, take all of the medicine as prescribed, even if you are feeling better after a few days. Do not smoke. Avoid being exposed to the smoke [...] Also bring a complete list of med ications eventhose not taken for asthma. If you do not already have one, talk to your [facility] about developing a personalized "Asthma Action Plan." A pneumococcal (pneumonia)vaccine and [...] turning garvin or blue Date Last Reviewed: 04/02/[id number] [employer]. [address] [place] [address], [place] [id number]. All righ ts reserved. This information is not intended as a substitute for professional medical care. Always follow your healthcare professional's instructions. documented in this encounter Progress Notes Terry Dean MD - 01/18/2017 3:00 PM PDTFormatting of this note might be different f rom the original. Pulmonary Follow Up 01/18/2017 HPI Sherron Patino is a 76 y.o. female patient of Jared Hahn PA-C here today fo r follow up of asthma. The patient's last visit was on 12/28/16. Ms. Patino states that her asthma has signific antly improved since her last clinic appointment at which time we initiated Dulera and we wi ll of Asmanex. Since the last visit she feels like their asthma has been decreasing. They have not had a ny acute illnesses resulting in worsening asthma symptoms. They have not required a burst o f prednisone since our last appointment. Specifically 0 tapers of prednisone have occurred over the interval. Lastly Sherron notes 0 ED visits and 0 hospitalizations for asthma have oc curred since the last appointment. Their controller medication regimen currently consists of Dulera. They do not feel like th is medication regimen is effective at controlling their symptoms. Currently Sherron is using their rescue albuterol, Proventil, 0-1 times a week. They have albuterol for use in a Duone b nebulizer and use it 0-1 times a week. Triggers of their asthma include smoke, upper respiratory tract infections. She does not h ave nocturnal symptoms of wheezing, chest tightness or cough. She does not measure their pe ak flow. Currently Sherron reports being able to walk 2 block at their own pace on level ground before becoming symptomatic from right knee. They are not exercising regularly. Current exercise consists of walking. She does not cough chronically, and does not produce mucous. Sherron does not report symptoms of heartburn or acid reflux. They have not had recent sympto ms of nasal congestion, runny nose or post nasal drip. Sherron Patino is not smoking cigarettes. The patient have not received this year's influenza vaccination. They are up to date with their Pneumovax and Prevnar 13. No issues are reported with the use of Dulera. Past Medical History Past Medical History: Diagnosis Date Abdominal hernia Acid reflux disease Allergic rhinitis Alopecia Arthritis Left knee Asthma 2004 Carpal tunnel syndrome Left Cervicalgia Chronic right shoulder pain COPD (chronic obstructive pulmonary disease) ([facility]) patient unware of diagnosis Degenerative joint disease [...] T wice Daily., Disp: 8.8 g, Rfl: 0 montelukast (SINGULAIR) 10 mg tablet, Take 10 mg by mouth nightly., Disp: , Rfl: Immunizations: Immunization History Administered Date(s) Administered INFLUENZA 65 Y OR >, TRIVALENT HIGH-DOSE 01/12/2016 INFLUENZA PF 18 Y OR >,TRIVALENT RECOMBINANT 01/30/2014 PNEUMOCOCCAL CONJUGATE 13-VALENT (PCV13) 01/12/2016 PNEUMOCOCCAL POLYSACCHARIDE 23-VALENT (PPSV23) 02/11/1998, 02/12/2003, 06/18/2009 Objective BP 120/70 | Pulse 86 | Ht 1.499 m (4' 11") | Wt 78.3 kg (172 lb 11.2 oz) | SpO2 96% | ? No | BMI 34.88 kg/m Appearance: Alert, cooperative, no distress, appears [...] and supraclavicular nodes normal. Neurologic: Gait normal. Data: None Assessment 1. Asthma moderate persistent. Significant improvement of the patient's symptoms has oc curred with the substitution of Dulera for Asmanex. The patient's use of her nebulizer/mete red-dose inhaler at all but ceased. After extensive discussion we decided to continue with Dulera. If the patient's symptoms r emain stable over the next 6 months it would be reasonable to step down the strength of her Dulera. Lastly Ms. Ptaino plans to receive a seasonal influenza vaccination at [facility] within the next several weeks. Plan 1. Continue Dulera 200/5, 2 puffs twice daily. 2. High-dose seasonal influenza vaccination January 2017. 3. Pulmonary clinic follow-up appointment in 6 months time CC: RAF Johnston-C documented in this encounter Plan of Treatment Not on filedocumented as of this encounter Visit Diagnoses + + | Diagnosis | + + | Moderate persistent asthma without complication - Primary Unspecified asthma | + + documented in this encounter
--- OUTSIDE RECORDS SUMMARY | ~2019-04-19 | XMS | Encounter Summary ---
Demographics + + + | Address | [address] | | | [place] [address] | + + + | Home Phone | | + + + | Preferred Language | Unknown | + + + | Marital Status | | + + + | Catholic Affiliation | Unknown | + + + | Race | Unknown | + + + | Ethnic Group | Unknown | + + + Author + + + | Author | [facility] | | | and [place] | + + + | Organization | [facility] | | | and [place]ana [...] [place] | | | | | [address] | | + + + + + | Radha Patino | ECON | Unknown | | + + + + + Care Team Providers + +------+ + | Care Chief Executive Officer Name | Role | Phone | + +------+ + | Jared Hahn PA-C | PCP | | + +------+ + Reason for Visit +--------+ + | Reason | Comments | +--------+ + | Asthma | Hospital Follow up | +--------+ + Evaluate & Treat (Routine) +--------+--------+ + + + + | Status | Reason | Specialty | Diagnoses / | Referred By | Referred To | | | | | Procedures | Contact | Contact | +--------+--------+ + + + + | Closed | | Pulmonary | Diagnoses | Jovani, | Jermaine | | | | Disease / | HOSP F/U | Jared East, | MD Terry | | | | Pulmonology | PER Y'S | PA-C [address] | [address] | | | | | REQUEST/FILM | [place] | [place] | | | | | S | [place] | [place] [address] | | | | | DAIVD/ | Lilian | Phone: | | | | | NEEDS 1/2 | [place] [address] | [phone] | | | | | BUT AT 1130 | Phone: | Fax: | | | | | TIME | [phone] | [phone] | | | | | Procedures | Fax: | | | | | | OFFICE VISIT | [phone] | | | | | | REGULAR | | | +--------+--------+ + + + + Encounter Details +--------+---------+ + + + | Date | Type | Department | Care Team | Description | +--------+---------+ + + + | 12/28/ | Office | [facility] | Terry Dean, | Moderate persistent | | 2017 | Visit | PULMONARY [address] | MD [address] | asthma without | | | | [place], | [place] | complication | | | | [place] [address] | [address] | | | | | [phone] | | | +--------+---------+ + + + [...] + + + | Blood Pressure | 122/80 | 12/28/2016 11:14 AM | | | | | PDT | | + + + + + | Pulse | 92 | 12/28/2016 11:14 AM | | | | | PDT | | + + + + + | Temperature | - | - | | + + + + + | Respiratory Rate | - | - | | + + + + + | Oxygen Saturation | 94% | 12/28/2016 11:14 AM | | | | | PDT | | + + + + + | Inhaled Oxygen | - | - | | | Concentration | | | | + + + + + | Weight | 76.8 kg (169 lb 6.4 | 12/28/2016 11:14 AM | | | | oz) | PDT | | + + + + + | Height | 149.9 cm (4' 11") | 12/28/2016 11:14 AM | | | | | PDT | | + + + + + | Body Mass Index | 34.21 | 12/28/2016 11:14 AM | | | | | PDT | | + + + + + documented in this encounter Patient Instructions Patient Instructions Terry Dean MD - 12/28/2016 11:30 AM PDT Dulera (Formoterol; Mometasone) metered dose inhaler What is this medicine? FORMOTEROL; MOMETASONE (for SHONDA cox; john MET a sone) inhalation is a combination of two medicines that decrease inflammation and help to open up the airways in your lungs. It is us ed to treat asthma. Do NOT use in an acute asthma attack. How should I use this medicine? This medicine is inhaled through the mouth. Follow the directions on the prescription label . Rinse your mouth with water after use. Make sure not to swallow the water. Take your medic ine at regular intervals. Do not take your medicine more often than directed. Do not stop ta janene except on your doctor's advice. Make sure that you are using your inhaler correctly. As k your doctor or health care provider if you have any questions. A special MedGuide will be given to you by the pharmacist with each prescription and refill . Be sure to read this information carefully each time. Talk to your transmission supervisor regarding the use of this medicine in children. Special care may be needed. What side effects may I notice from receiving this medicine? Side effects that you should report to your doctor or health lpn care manager as soon as p ossible: allergic reactions like skin rash or hives, swelling of the face, lips, or tongue breathing problems chest pain dizziness or lightheaded fever or chills high blood pressure irregular heartbeat vision problems Side effects that usually do not require medical attention (Report these to your doctor or health lpn care manager if they continue or are bothersome.): coughing, hoarseness, throat irritation different taste in mouth headache nervousness stomach upset stuffy nose tremor What may interact with this medicine? Do not take this medicine with any of the following mediations: MAOIs like Carbex, Eldepryl, Marplan, Nardil, and Parnate This medicine may also interact with the following medications: aminophylline or theophylline antiviral medicines for HIV or AIDS certain antibiotics like clarithromycin, linezolid, and telithromycin certain medicines for blood pressure, heart disease, or irregular heart beat certain medicines for colds certain medicines for depression or emotional conditions certain medicines for fungal infections like ketoconazole and itraconazole diuretics other medicines for breathing problems What if I miss a dose? If you miss a dose, use it as soon as you remember. If it is almost time for your next dose , use only that dose and continue with your regular schedule, spacing doses evenly. Do not u se double or extra doses. Where should I keep my medicine? Keep out of the reach of children. Store at room temperature between 59 and 86 degrees F (15 and 30 degrees C). Throw away the inhaler after the dose counter reaches 0 or after the expiration date, whichever comes firs t. Avoid exposure to heat, fire, and flame. What should I tell my health care provider before I take this medicine? They need to know if you have any of these conditions: adrenal tumor aneurysm bone problems diabetes glaucoma heart disease or irregular heartbeat high blood pressure immune system problems infection seizures thyroid problems worsening asthma an unusual or allergic reaction to formoterol, mometasone, other medicines, foods, dyes, or preservatives or trying to get breast-feeding What should I watch for while using this medicine? Visit your doctor for regular check ups. Tell your doctor or health lpn care manager if yo ur symptoms do not get better. If your symptoms get worse or if you need your short-acting i nhalers more often, call your doctor right away. Do not use this medicine more than every 12 hours. If you have asthma, be aware that using this medicine may increase your risk of dying from asthma-related problems. Talk to your doctor about the risks and benefits of taking this med icine. NEVER use this medicine for an acute asthma attack. This medicine may increase your risk of getting an infection. Tell your doctor or health ca re professional if you are around anyone with measles or chickenpox, or if you develop sores or blisters that do not heal properly. NOTE:This sheet is a summary. It may not cover all possible information. If you have questi ons about this medicine, talk to your doctor, pharmacist, or health care provider. Copyright 2017 [employer] Standard documented in this encounter Progress Notes Terry Dean MD - 12/28/2016 11:30 AM PDTFormatting of this note might be different f rom the original. Pulmonary Follow Up 12/28/2016 HPI Sherron Patino is a 75 y.o. female patient of Jared Hahn PA-C here today fo r follow up of asthma. The patient's last visit was on 06/18/14. Since the last visit she feels like their asthma has been significantly fluctuating. At the time of the patient's last clinic appointment we initiated Asmanex in addition to her standard Singulair. Pulmonary clinic follow-[facility] was scheduled for 6 months but was canceled. Ms. Patino noted that she did well until May 2016. In May the patient developed worsening asthma which was treated with prednisone for approximately 16 days. Her symptoms ultimately returned to baseline. In mid May the patient developed increased symptoms w hich were initially treated with prednisone and azithromycin. The patient's symptoms did no t improve and she was ultimately hospitalized at [facility] on . At the time of discharge patient was given 5 additional days of prednisone. A sputum cultu re grew Jemima albicans which was treated with 14 days of fluconazole. Over the last 3 weeks yasmeen Patino has been using her DuoNeb frequently. For the most pa rt she has not been using her Proventil. The patient's current medication regimen consists of Asmanex 220 g per puff, 2 puffs twic e daily and Singulair. Currently Sherron is using their rescue albuterol, Proventil, 0 times a day. They have albut ling/ipratropium for use in a nebulizer and use it 4-5 times a day. Triggers of their asthma include URIs. She does have nocturnal symptoms of wheezing, chest tightness or cough. She does measure their peak flow. PF is about 200 now with baseline at 250. Currently Sherron reports being able to walk several hundred feet at their own pace on level ground before becoming symptomatic. They are not exercising regularly. . She does cough chronically, and does produce mucous. The mucous is clear in color. Sherron does not report symptoms of heartburn or acid reflux. They have not had recent sympto ms of nasal congestion, runny nose or post nasal drip. New triggers since the last appointment include smoke. Sherron Patino is not smoking cigarettes. The patient have received this year's influenza vaccination. They are up to date with thei r Pneumovax and Prevnar 13. The patient described 2 separate episodes of what sounds like laryngospasm in association w ith her most recent illness in October 2016. The symptoms have not recurred. Past Medical History Past Medical History: Diagnosis Date Abdominal hernia Acid reflux disease Allergic rhinitis Alopecia Arthritis Left knee Asthma 2003 Carpal tunnel syndrome Left Cervicalgia Chronic right shoulder pain COPD (chronic obstructive pulmonary disease) ([facility]) patient unware of diagnosis Degenerative joint disease of sacroiliac joint Dermatophytosis of left foot Enthesopathy of hip Right Esophageal reflux Lumbar scoliosis Obesity Osteoarthritis Vitamin D deficiency Allergies: Allergies Allergen Reactions Hydrocodone Ibuprofen Meclizine Hcl Oxycodone Propoxyphene Medications: Current Outpatient Prescriptions: albuterol (PROVENTIL HFA) 90 mcg/puff inhaler, Inhale 2 puffs into the lungs every 4 h ours as needed for Wheezing or Shortness of Breath., Disp: , Rfl: albuterol-ipratropium (DUONEB) 2.5-0.5 mg/3 mL SOLN, Take 3 mLs by nebulization every 6 hours., Disp: , Rfl: famotidine (PEPCID) 20 mg tablet, Take 20 mg by mouth 2 times daily., Disp: , Rfl: fluticasone (FLONASE) 50 mcg/nasal spray, 1 spray by Each Nare route Daily., Disp: , R fl: loratadine (CLARITIN) 10 mg tablet, Take 10 mg by mouth Daily as needed for Allergies. , Disp: , Rfl: mometasone (ASMANEX) 220 mcg/puff inhaler, Inhale 2 puffs into the lungs 2 times daily ., Disp: , Rfl: montelukast (SINGULAIR) 10 mg tablet, Take 10 mg by mouth nightly., Disp: , Rfl: Immunizations: Immunization History Administered Date(s) Administered INFLUENZA 65 Y OR >, TRIVALENT HIGH-DOSE 01/12/2016 INFLUENZA PF 18 Y OR >,TRIVALENT RECOMBINANT 01/30/2014 PNEUMOCOCCAL CONJUGATE 13-VALENT (PCV13) 01/12/2016 PNEUMOCOCCAL POLYSACCHARIDE 23-VALENT (PPSV23) 06/18/2009 Objective BP 122/80 | Pulse 92 | Ht 1.499 m (4' 11") | Wt 76.8 kg (169 lb 6.4 oz) | SpO2 94% | B reastfeeding? No | BMI 34.21 kg/m Appearance: Alert, cooperative, no distress, appears [...] supraclavicular nodes normal. Neurologic: Gait normal. Data: Records from the patient's recent hospitalization and from the [facility] were revi ewed. A CT scan of the chest from 11/27/16 was reviewed. Mild atelectatic changes are noted in th e lingula and lower lobes bilaterally. Otherwise no significant pulmonary abnormalities. Assessment 1. Asthma moderate persistent. Currently treated with Asmanex and Singulair. The patie marva was last seen in our office approximately 2.5 years ago. For the most part Ms. Sukumar james has been well controlled with the above noted medication regimen. However since May 2016 the patient has had 2 apparent asthma exacerbations 1 which required hospitalization. The patient symptoms have improved she continues to use frequent short acting bronchodilato rs in the form of a nebulizer. A CT scan related the patient's recent hospitalization did not show evidence of pulmonary e mboli or other conditions to cause a worsening pulmonary status. At this point in time it is reasonable to work under the assumption that the patient needs further intensification of her asthma medication regimen. If this does not seem to signifi cantly improve the patient's symptoms/asthma exacerbation frequency that it be reasonable to broaden the differential and consider additional diagnoses. Given the recent symptoms this would include ABPA or paradoxical vocal cord motion. Total duration of the patient's clinic appointment was in excess of 30 minutes. Greater th an 50% time was spent in counseling related to asthma management. Plan 1. Initiate Dulera 200/5, 2 puffs twice daily 2. Discontinue Asmanex. 3. The patient will continue to use Singulair. 4. Her DuoNeb will be changed to every 4 hours as needed. 5. Pulmonary clinic follow-up appointment to assess the status of the patient's symptoms i n 3 weeks' time. CC: RAF Johnston-C documented in this encounter Plan of Treatment Not on filedocumented as of this encounter Visit Diagnoses + + | Diagnosis | + + | Moderate persistent asthma without complication Unspecified asthma | + + documented in this encounter
--- OUTSIDE RECORDS SUMMARY | ~2019-04-19 | XMS | Encounter Summary ---
Demographics + + + | Address | [address] | | | [place] [address] | + + + | Home Phone | | + + + | Preferred Language | Unknown | + + + | Marital Status | | + + + | Quaker Affiliation | Unknown | + + + | Race | Unknown | + + + | Ethnic Group | Unknown | + + + Author + + + | Author | [facility] | | | and [place] | + + + | Organization | [facility] | | | and [place] | [...] [place] | | | | | [address] | | + + + + + | Radha Patino | ECON | Unknown | | + + + + + Care Team Providers + +------+ + | Care Climatology Teacher Name | Role | Phone | + +------+ + | Jared Hahn PA-C | PCP | | + +------+ + Encounter Details +--------+ + + + + | Date | Type | Department | Care Team | Description | +--------+ + + + + | 05/07/ | Abstract | [facility] | Terry Dean, | COPD (chronic | | 2015 | | PULMONARY [address] | MD [address] | obstructive | | | | [place], | [place], [place] | pulmonary disease) | | | | [place] [address] | [address] | (HCC) (Primary Dx) | | | | [phone] | | | +--------+ + + + + Social History + +-------+ +--------+ + | Tobacco Use | Types | Packs/Day | Years | Date | | | | | Used | | + +-------+ +--------+ + | Former Smoker | | | | Quit: 01/07/1974 | + +-------+ +--------+ + + + +---------+ + | Alcohol Use | Drinks/Week | oz/Week | Comments | + + +---------+ + | Not Asked | | | | + + +---------+ [...] + | Diagnosis | + + | COPD (chronic obstructive pulmonary disease) (HCC) - Primary Chronic airway | | obstruction, not elsewhere classified | + + documented in this encounter"
--- OUTSIDE RECORDS SUMMARY | ~2019-04-19 | XMS | Encounter Summary ---
Demographics + + + | Address | [address] | | | [place] [address] | + + + | Home Phone | | + + + | Preferred Language | Unknown | + + + | Marital Status | | + + + | Mormonism Affiliation | Unknown | + + + | Race | Unknown | + + + | Ethnic Group | Unknown | + + + Author + + + | Author | [facility] | | | and [place] | + + + | Organization | [facility] | | | and [place] | [...] [place] | | | | | [address] | | + + + + + | Radha Patino | ECON | Unknown | | + + + + + Care Team Providers + +------+ + | Care Torch Burner Name | Role | Phone | + +------+ + | Jared Hahn PA-C | PCP | | + +------+ + Reason for Visit + + + | Reason | Comments | + + + | Wrist Pain | Left wrist pain | + + + Evaluate & Treat (Routine) +--------+--------+ + + + + | Status | Reason | Specialty | Diagnoses / | Referred By | Referred To | | | | | Procedures | Contact | Contact | +--------+--------+ + + + + | Closed | | Physical | Diagnoses | | Yashira, | | | | Medicine and | Disturbance | Yashira, | Farhan Carmen MD | | | | Rehabilitatio | of skin | Farhan Carmen MD | [address] | | | | n | sensation | [address] | [place] | | | | | Procedures | [place] | [facility], [place] | | | | | [place] | [facility], [place] | [address] Phone: | | | | | &/SENS 1-2 | [address] | [phone] | | | | | NRV CNDJ | Phone: | Fax: | | | | | PRECONF | [phone] | [phone] | | | | | [place] | Fax: | | | | | | EMG-left | [phone] | | | | | | wrist, CTS, | | | | | | | positive | | | | | | | Phalens | | | | | | | referred by | | | | | | | Jared | | | | | | | Jovani shore | | | | | | | Ryan | | | +--------+--------+ + + + + Encounter Details +--------+ + + + + | Date | Type | Department | Care Team | Description | +--------+ + + + + | 01/07/ | Procedure | [facility] | Farhan Ac | Left wrist pain | | 2013 | visit | PHYSIATRY [address] | TMD [address] | (Primary Dx); | | | | [facility] [place], | [facility], [place] | Paresthesias in left | | | | [place] [address] | [address] | hand | | | | [phone] | | | +--------+ + + + [...] + + + | Blood Pressure | 128/79 | 01/07/2014 9:18 AM | | | | | PDT | | + + + + + | Pulse | 75 | 01/07/2014 9:18 AM | | | | | PDT [...] Weight | 78.5 kg (173 lb) | 01/07/2014 9:18 AM | | | | | PDT | | + + + + + | Height | 149.9 cm (4' 11") | 01/07/2014 9:18 AM | | | | | PDT | | + + + + + | Body Mass Index | 34.94 | 01/07/2014 9:18 AM | | | | | PDT | | + + + + + documented in this encounter Progress Notes Farhan Ac MD - 01/07/2014 6:34 PM PDT [facility] Musculoskeletal, Sports and Spine, Physiatry [address] [address] Test Date: 01/07/2014 Patient Name: Sherron Patino : 1940 Physician: Farhan Ac MD MR #: [id number] Sex: Female Referring Physician: Arcenio Hahn PA-C HISTORY: The patient is a pleasant 72 year-old right-handed female who is being seen today at the request of Arcenio Hahn PA-C for complaints of numbness and tingling in the le ft hand. The patient's symptoms have improved significantly recently. She had a flare up i october after taking a CPR class. The numbness involves the 1st-3rd digits. She does also g et some wrist pain. After the flare up she did wear carpal tunnel splints on both sides and that did help. She had a prior carpal tunnel release in early 2012. That surgery was quit e successful. The patient denies any history of diabetes, hypothyroidism, alcohol abuse or cancer. Nerve Conduction Studies Anti Sensory Summary Table Site NR Peak (ms) Norm Peak (ms) P-T Amp (V) Norm P-T Amp Site1 Site2 Delta-P (ms) Dist (cm) Александр (m/s) Norm Александр (m/s) Left Radial Anti Sensory (Base 1st Digit) Wrist 1.8 <3.1 56.4 Wrist Base 1st Digit 1.8 0.0 Motor Summary Table Site NR Onset (ms) Norm Onset (ms) O-P Amp (mV) Norm O-P Amp Site1 Site2 Delta-0 (ms) Dist (cm) Александр (m/s) Norm Александр (m/s) Left Median Motor (Abd Poll Brev) Wrist 3.3 <4.2 *4.2 >5 Elbow Wrist 3.0 17.0 57 >50 Elbow 6.3 3.7 Left Ulnar Motor (Abd Dig Minimi) Wrist 2.3 <4.2 10.3 >3 B Elbow Wrist 2.4 15.0 62 >53 B Elbow 4.7 10.4 A Elbow B Elbow 1.9 10.0 53 >53 A Elbow 6.6 9.5 Comparison Summary Table Site NR Peak (ms) Norm Peak (ms) P-T Amp (V) Site1 Site2 Delta-P (ms) Norm Delta (ms) Left Median/Ulnar Palm Comparison (Wrist - 8cm) Median Palm 1.9 <2.2 65.9 Median Palm Ulnar Palm 0.1 <0.3 Ulnar Palm 1.8 <2.2 18.4 EMG Side Muscle Nerve Root Ins Act Fibs Psw Amp Dur Poly Recrt Int Pat Comment Left Deltoid Axillary C5-6 Nml Nml Nml Nml Nml 0 Nml Nml Left Biceps Musculocut C5-6 Nml Nml Nml Nml Nml 0 Nml Nml Left Triceps Radial C6-7-8 Nml Nml Nml Nml Nml 0 Nml Nml Left PronatorTeres Median C6-7 Nml Nml Nml Nml Nml 0 Nml Nml Left 1stDorInt Ulnar C8-T1 Nml Nml Nml Nml Nml 0 Nml Nml Nerve Conduction Studies Motor Left/Right Comparison Site L Lat (ms) R Lat (ms) L-R Lat (ms) L Amp (mV) R Amp (mV) L-R Amp (%) Site1 Site2 L Ve l (m/s) R Александр (m/s) L-R Александр (m/s) Median Motor (Abd Poll Brev) Wrist 3.3 *4.2 Elbow Wrist 57 Elbow 6.3 3.7 Ulnar Motor (Abd Dig Minimi) Wrist 2.3 10.3 B Elbow Wrist 62 B Elbow 4.7 10.4 A Elbow B Elbow 53 A Elbow 6.6 9.5 Anti Sensory Left/Right Comparison Site L Lat (ms) R Lat (ms) L-R Lat (ms) L Amp (V) R Amp (V) L-R Amp (%) Site1 Site2 L Александр (m/s) R Александр (m/s) L-R Александр (m/s) Radial Anti Sensory (Base 1st Digit) Wrist 1.8 56.4 Wrist Base 1st Digit Comparison Left/Right Comparison Site L Lat (ms) R Lat (ms) L-R Lat (ms) L Amp (V) R Amp (V) L-R Amp (%) Median/Ulnar Palm Comparison (Wrist - 8cm) Median Palm 1.9 65.9 Ulnar Palm 1.8 18.4 NCV FINDINGS: Evaluation of the Left median motor nerve showed slightly reduced amplitude which in and of itself is a non-specific finding. All remaining nerves (as indicated in the preceding tabl es) were within normal limits. EMG FINDINGS: All examined muscles (as indicated in the preceding table) showed no evidence of electrical instability. IMPRESSION: EMG and nerve conduction studies were within normal limits with no electrodiagnostic eviden ce of median neuropathy (carpal tunnel syndrome), ulnar neuropathy, cervical radiculopathy, brachial plexopathy or peripheral neuropathy. The patient s symptoms have mostly resolved with conservative treatment. I do not believ e any additional neurologic work-up is indicated at this time. She will follow-up with her PCP as needed. Thank you for allowing me to perform neurodiagnostic testing on your patient. If you have a ny further questions or comments, please do not hesitate to call. Farhan Ac MD Fellow, [employer]. documented in this encounter Plan of Treatment Not on filedocumented as of this encounter Visit Diagnoses + + | Diagnosis | + + | Left wrist pain - Primary Pain in joint, forearm | + + | Paresthesias in left hand Disturbance of skin sensation | + + documented in this encounter
--- OUTSIDE RECORDS SUMMARY | ~2019-04-19 | XMS | Encounter Summary ---
Demographics + + + | Address | [address] | | | [place] [address] | + + + | Home Phone | | + + + | Preferred Language | Unknown | + + + | Marital Status | | + + + | Cheondoism Affiliation | Unknown | + + + | Race | Unknown | + + + | Ethnic Group | Unknown | + + + Author + + + | Author | [facility] | | | and Kemarana | + + + | Organization | [facility] | | | and [...] [place] | | | | | [address] | | + + + + + | Radha Patino | ECON | Unknown | | + + + + + Care Team Providers + +------+ + | Care Veterinary X Ray Operator Name | Role | Phone | + +------+ + | Jared Hahn PA-C | PCP | | + +------+ + Reason for Visit + + + | Reason | Comments | + + + | Establish Care | | + + + Evaluate & Treat (Routine) +--------+--------+ + + + + | Status | Reason | Specialty | Diagnoses / | Referred By | Referred To | | | | | Procedures | Contact | Contact | +--------+--------+ + + + + | Closed | | Pulmonary | Diagnoses | Sineath, | Jermaine, | | | | Disease / | Chronic | MARY Travis | MD Terry | | | | Pulmonology | airway | [address] | [address] | | | | | obstruction, | [address]VE [place] | [place], | | | | | not | [place], [place] | [place] [address] | | | | | elsewhere | [address] | Phone: | | | | | classified | Phone: | [phone] | | | | | Extrinsic | [phone] | Fax: | | | | | asthma, | Fax: | [phone] | | | | | unspecified | [phone] | | | | | | Procedures | | | | | | | [place] OFFICE | | | | | | | OUTPATIENT | | | | | | | NEW 60 | | | | | | | MINUTES DRAWING SUPERVISOR | | | | | | | DATE OF | | | | | | | SERVICE | | | | | | | 06/21/14 | | | +--------+--------+ + + + + Encounter Details +--------+---------+ + + + | Date | Type | Department | Care Team | Description | +--------+---------+ + + + | 06/18/ | Office | [facility] | Terry Dean, | Asthma, moderate | | 2015 | Visit | PULMONARY [address] | MD [address] | persistent, | | | | [place], | [place], [place] | uncomplicated | | | | [place] [phone] | [phone] | (Primary Dx) | | | | [phone] | | | +--------+---------+ + + + Social History + +-------+ [...] + + + | Blood Pressure | 126/78 | 06/18/2014 2:24 PM | | | | | PST | | + + + + + | Pulse | 70 | 06/18/2014 2:24 PM | | | | | PST | | + + + + + | Temperature | 37.1 C (98.8 F) | 06/18/2014 2:24 PM | | | | | PST | | + + + + + | Respiratory Rate | - | - | | + + + + + | Oxygen Saturation | 95% | 06/18/2014 2:24 PM | | | | | PST | | + + + + + | Inhaled Oxygen | - | - | | | Concentration | | | | + + + + + | Weight | 76.8 kg (169 lb 4.8 | 06/18/2014 2:24 PM | | | | oz) | PST | | + + + + + | Height | 149.9 cm (4' 11") | 06/18/2014 2:24 PM | | | | | PST | | + + + + + | Body Mass Index | 34.19 | 06/18/2014 2:24 PM | | | | | PST | | + + + + + documented in this encounter Patient Instructions Patient Instructions Terry Dean MD - 06/18/2014 3:16 PM PST Understanding Asthma Asthma causes swelling and narrowing of the airways in your lungs. No one is exactly sure w hat causes asthma. It is believed to be a combination of inherited and environmental factors . Healthy lungs Inside the lungs there are branching airways made of stretchy tissue. Each airway is wrappe d with bands of muscle. The airways are more narrow as they go deeper into the lungs. The sm allest airways end in clusters of tiny balloon-like air sacs (alveoli). These clusters are s urrounded by blood vessels. When you inhale (breathe in), air enters the lungs. It travels d own through the airways until it reaches the air sacs. When you exhale (breathe out), air tr avels up through the airways and out of the lungs. The airways produce mucus that traps part icles you breathe in. Normally, the mucus is then swept out of the lungs, by tiny hairs (cil ia) that line the airways, to be swallowed or coughed up. What the lungs do The air you inhale contains oxygen. Whenoxygen reaches the air sacs, it passes into the b lood vessels surrounding the sacs. Your blood then delivers oxygen to all of your cells. Car bon dioxide is removed from the body in a similar way, as you exhale. When you have asthma 1. Tightened muscle 2. Swollen lining 3. Increasedmucus People with asthma have very sensitive airways. This means the airways react to certain thi ngs called triggers (such as pollen, dust, or smoke)and become swollen and narrowed. Infla mmation makes the airways swollen and narrowed. This is a chronic (long-lasting or recurring ) problem. The airways may not always be narrowed enough tonotice breathing problems. Symptoms of chronic inflammation: Coughing Chest tightness Shortness of breath Wheezing (a whistling noise, especially when breathing out) Low energy or feeling tired Over time, chronic mild inflammation can lead to permanent scarring of airways and loss of lung function. Moderate flare-ups When sensitive airways are irritated by a trigger, the muscles around the airways tighten. The lining of the airways swells. Thick, sticky mucus increases and clogs the airways. All o f this makes you work harder to keep breathing. Symptoms of moderate flare-ups: Coughing, especially at night Getting tired or out of breath easily Wheezing Chest tightness Faster breathing when at rest Severe flare-ups Severe flare-ups are life-threatening. They can cause brain damage or . In a severe flare-up, the muscle tightening, swelling, and mucus production are even worse. Breathing is extremely difficult. Your body can't get enough oxygen and can't remove carbon dioxide. Was te gas is trapped in the alveoli, and gas exchange can t occur. The body is not getting en ough oxygen. Without oxygen, body tissues, especially brain tissue, begin to . If this go es on for long, it can lead to brain damage or . Call 911, or have someone call for you, if you have any of these symptoms and they are not relieved right away by taking your quick-relief medication as prescribed: Severe difficulty breathing Being too short of breath to talk or walk Lips or fingers turning blue Feeling lightheaded or dizzy,as though you are about to pass out Peak flow less than 50% of your personal best, if you use peak flow monitoring Because asthma is a long-term condition, it is important to work with your health care prov ider to manage it. If you smoke, get help to quit. Know your triggers and figure out how to avoid them. And, it is very important that you take your medications as instructed. That gilberto ns taking them, even when you feel good. [id number] [employer]. [address] [place] [address]. All righ ts reserved. This information is not intended as a substitute for professional medical care. Always follow your healthcare professional's instructions. documented in this encounter Progress Notes Terry Dean MD - 06/18/2014 2:53 PM PSTFormatting of this note might be different f rom the original. Pulmonary Consult Note 06/18/2014 HPI Sherron Deanna Patino is a 73 y.o. female patient of Jared Hahn [facility] here today for evaluation of asthma. She notes that they first started having issues with their breathing approximately 10 years ago. At that time they presented with symptoms of wheezing and shortness of breath. The i nitial therapy consisted of Singulair and as needed albuterol. Over the years Ms. Paitno 's symptoms have been well-controlled on this regimen.. In the patient developed worsening shortness of breath associated wheezing . Her symptoms were not associated with an upper respiratory tract infection. She was seen in the clinic at [facility] and was prescribed approximately one week of prednisone. Her symptoms returned to baseline. Sherron went on to develop 2 episodes of sinusitis each treated with azithromycin. In late May her symptoms again worsened and on the she presented to the emergency department at [facility]. She was treated and discharged. The patient returned w [facility] 12 hours with persistent symptoms. Ultimately she received what sounded like a contin uous nebulizer for 1 hour. The patient was subsequently discharged with prednisone dose to 40 mg a day for 4 days and they plan to take Singulair. Since her discharge her asthma has been well controlled. Over the last 23 days the symptoms have been stable. Their baseline peak flow is I'm not. Their current peak flow is unknown. Sherron notes nocturnal symptoms of wheezing, chest tightness and cough. Shedoes not require nocturnal albuterol. Currently exercise in the form of climbing stairs causes wheezing or shortness of breath. Sherron is able to walk 1-2 miles at their own pace on level ground prior to developing sympto ms. The distance walked is predominately limited by fatigue. One year ago, they feel that mariam gaming could walk 1-2 miles. They do not exercise regularly. Currently she does not have a cough. They do not produce mucous. Recent treatments have included Advair. Specifically Sherron used Advair for approximately o ne month in . She discontinued medication secondary to an unclear clinical benefit. Currently they are on a regimen consisting of daily Singulair. They do feel that these mark tments are helping their breathing. Currently they are using their rescue albuterol inhaler , 0 times a day. Sherron does not report acid reflux like symptoms. Shedoes not chronic sinusitis-like symptom s. Pets include: none. Exposures include : none. 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 Triggers of menses asthma include cold air, heart failure or exposure to tobacco smoke. Past Medical History: Past Medical History Diagnosis Date Chronic right shoulder pain Asthma 2004 Vitamin D deficiency Lumbar scoliosis Degenerative joint disease of sacroiliac joint Allergic rhinitis COPD (chronic obstructive pulmonary disease) ([facility]) patient unware of diagnosis Abdominal hernia Esophageal reflux Cervicalgia Arthritis Left knee Osteoarthritis Carpal tunnel syndrome Left Alopecia Dermatophytosis of left foot Enthesopathy of hip Right Obesity Past Surgical History: Past Surgical History Procedure Laterality Date Knee joint replacement TKA left Nasal/sinus endoscopy Nasal septum surgery Wrist surgery Cataract removal Bladder suspension Bladder repair Shoulder surgery bilateral Meniscectomy X 2 Cholecystectomy Bunionectomy Family History: Family History Problem Relation Age of Onset * Mother healthy and at 94 * Father in 50's Cirrhosis Father Diabetes, IDDM Brother Social History: She reports that she quit smoking about 40 years ago. She does not have any smokeless tobac co history on file. She reports that she does not drink alcohol or use illicit drugs. Allergies: Allergies Allergen Reactions Hydrocodone Ibuprofen Meclizine Hcl Oxycodone Propoxyphene Medications: Current outpatient prescriptions:albuterol (PROVENTIL HFA) 90 mcg/puff inhaler, Inhale 2 pu ffs into the lungs every 4 hours as needed for Wheezing or Shortness of Breath., Disp: , Rfl : , ; fluticasone (FLONASE) 50 mcg/nasal spray, 1 spray daily, Disp: , Rfl: , ; loratadine (CLARITIN) 10 mg tablet, Take 10 mg by mouth as needed., Disp: , Rfl: , mometasone (ASMANEX 120 METERED DOSES) 220 mcg/puff inhaler, Inhale 2 puffs into the lungs Daily., Disp: 1 Inhaler, Rfl: 6, ; montelukast (SINGULAIR) 10 mg tablet, Take 10 mg by mout h Daily., Disp: , Rfl: , ; omeprazole (PRILOSEC) 20 mg capsule, Take 20 mg by mouth Daily., Disp: , Rfl: , Immunizations: Immunization History Administered Date(s) Administered PNEUMOCOCCAL POLYSACCHARIDE 23-VALENT (PPSV23) 06/18/2009 TRIVALENT INFLUENZA, PRESERATIVE FREE (PED/ADOL/ADULT) 01/30/2014 Review of Systems Constitutional: Denies fever, chills, sweats, fatigue/weakness, and unexpected weight estrada ge. Sleep: Denies trouble sleeping, excessive snoring, and daytime sleepiness. Eyes: Denies vision change, and eye irritation. ENT: Denies earache, tinnitus, decreased hearing, nosebleeds, sore throat, and hoarseness. Resp: Denies hemoptysis or pleuritic chest pain. CV: Denies neck/chest/jaw pain with exertion, palpitations, lightheadedness, syncope, orth opnea, PND and claudication. GI: Denies trouble swallowing, heartburn, nausea, vomiting, abdominal pain, diarrhea, cindy na, and hematochezia. Denies dysuria, hematuria, difficulty or emptying bladder. Musculoskeletal: Denies joint pain/stiffness, joint swelling, muscle cramps, muscle weaknes s. Derm: Denies rash, itching, dryness, and suspicious lesions. Neurologic: Denies frequent headaches, seizures, tremors, numbness or tingling in hands or feet, vertigo, and falls. Psych Denies depression, anxiety, suicidal ideation. Endo Denies cold intolerance, heat intolerance. Heme Denies abnormal bruising, bleeding, and enlarged lymph nodes. Allergy Denies urticaria, allergic rash, hay fever Objective BP 126/78 | Pulse 70 | Temp(Src) 37.1 C (98.8 F) (Tympanic) | Ht 1.499 m (4' 11") | Wt 76.794 kg (169 lb 4.8 oz) | BMI 34.18 kg/m2 | SpO2 95% General Appearance: Alert, cooperative, no distress, appears stated age. Head: Normocephalic, without obvious abnormality, atraumatic. Eyes: PERRL, conjunctiva/corneas clear. Ears: Normal external appearance, TM's not examined. Nose: Nares normal, septum midline, mucosa normal, no drainage or sinus tenderness. Throat: Lips, mucosa, and tongue normal; teeth and gums normal. MP 3 . Neck: Supple, symmetrical, no adenopathy. Lungs: No accessory muscle use, breath sounds are clear to auscultation bilaterally, no w heezes, crackles or rhonchi. No dullness to percussion. Chest Wall: No tenderness or deformity. Heart: Regular rate and rhythm, S1, S2 normal, no murmur, rub or gallop Abdomen: Soft, non-tender. No hepatosplenomegaly. Extremities: Extremities normal, atraumatic, no cyanosis, clubbing, or edema Pulses: Radial pulses 2+ and symmetric Skin: Warm and dry Lymph nodes: Cervical and supraclavicular nodes normal Neurologic: Gait normal Data: Chest x-ray was done on 05/25/14 and was reviewed and interpreted in clinic today. It shows a portable chest x-ray which is without significant abnormality. Jared Hahn's notes were reviewed in clinic today. Records from the patient's emergenc y department visit at [facility] from 05/26/14 were also reviewed. Assessment Sherron Patino is a 73-year-old nonsmoker who was referred by Temo HERNANDEZ for pulmo nary consultation regarding recurrent asthma-like symptoms. Sherron has a history of asthma going back approximately 10 years. Historically her asthma h as been well controlled with Singulair alone. In January/March of this year the patient develop asthma-like symptoms which appeared to respond to prednisone. She subsequently expe rienced 2 episodes of sinusitis which were treated with azithromycin. In late May for s ymptoms again recurred requiring an emergency department evaluation ( 2). Ultimately she w as discharged home on a short course of prednisone and azithromycin. Her symptoms have not recurred. The patient's physical exam is unremarkable. No change in work, new pets change in living situation is reported. He would appear most likely that an upper respiratory tract infection late in the fall has caused persistent airway inflammation and a propensity to develop exacerbations of asthma. After extensive discussion we decided to intensify the patient's asthma medication regimen. Ms. Patino will continue to use Singulair daily. We will add an inhaled corticosteroid to her medication regimen. The patient was counseled to rinse her mouth out after inhaled steroid use. I have also explained to Ms. Patino the rationale for daily use of an inhal ed corticosteroid. Only if ongoing difficulty controlling the patient's symptoms was appreciated with I sugges t further diagnostic studies such as pulmonary function testing. Plan 1. Asmanex 220 g per puff, 2 puffs inhaled once daily. 2. After several months if Ms. Patino notes ongoing stable asthma symptoms the patient will decrease her Asmanex to 1 puff once a day. 3. Pulmonary clinic follow-up appointment to assess the status of the patient's symptoms a nd to discuss adjustments to her controller medication regimen in 6 months time. CC: Jared Hahn documented in this encounter Plan of Treatment Not on filedocumented as of this encounter Visit Diagnoses + + | Diagnosis | + + | Asthma, moderate persistent, uncomplicated - Primary | + + documented in this encounter
--- OUTSIDE RECORDS SUMMARY | ~2019-04-19 | XMS | Encounter Summary ---
Demographics + + + | Address | [address] | | | [place] [address] | + + + | Home Phone | | + + + | Preferred Language | Unknown | + + + | Marital Status | | + + + | Sikhism Affiliation | Unknown | + + + | Race | Unknown | + + + | Ethnic Group | Unknown | + + + Author + + + | Author | [facility] | | | and Kemarana | + + + | Organization | [facility] | | | and Kemarana [...] [place] | | | | | [address] | | + + + + + | Radha Patino | ECON | Unknown | | + + + + + Care Team Providers + +------+ + | Care Over [employer] Targeting Supervisor Name | Role | Phone | + +------+ + PCP | Unavailable | + +------+ + Encounter Details +--------+ + + + + | Date | Type | Department | Care Team | Description | +--------+ + + + + | 02/18/ | Hospital | [facility] | Davi Whitten | HEADACHE | | 2002 | Encounter | CONVERSION DEP [address] | C MD | | | | | [address] | | | | | | [place] | | | | | | [address] | | | | | | [phone] | | | +--------+ + + + [...]
--- OUTSIDE RECORDS SUMMARY | ~2019-04-19 | XMS | Encounter Summary ---
Demographics + + + | Address | [address] | | | [place] [address] | + + + | Home Phone | | + + + | Preferred Language | Unknown | + + + | Marital Status | | + + + | Zoroastrian Affiliation | Unknown | + + + | Race | Unknown | + + + | Ethnic Group | Unknown | + + + Author + + + | Author | [facility] | | | and Kemarana | + + + | Organization | [facility] | | | and [...] [place] | | | | | [address] | | + + + + + | Radha Patino | ECON | Unknown | | + + + + + Care Team Providers + +------+ + | Care Manager Mining Name | Role | Phone | + [...] | not | [place], [place] | [place] [address] | | | | | elsewhere | [address] | Phone: | | | | | classified | Phone: | [phone] | | | | | Extrinsic | [phone] | Fax: | | | | | asthma, | Fax: | [phone] | | | | | unspecified | [phone] | | | | | | Procedures | | | | | | | [place] OFFICE | | | | | | | OUTPATIENT | | | | | | | NEW 60 | | | | | | | MINUTES OVERSEER KOSHER KITCHEN | | | | | | | DATE OF | | | | | | | SERVICE | | | | | | | 06/21/14 | | | +--------+--------+ + + + + Encounter Details +--------+---------+ + + + | Date | Type | Department | Care Team | Description | +--------+---------+ + + + | 06/18/ | Office | [facility] | Terry Dean, | Asthma, moderate | | 2015 | Visit | PULMONARY [address] | MD [address] | persistent, | | | | [place], | [place], [place] | uncomplicated | | | | [place] [phone] | [phone] | (Primary Dx) | | | | [phone] | | | +--------+---------+ + + + [...] taking them, even when you feel good. [id number] [employer]. [address] [place] [address]. All righ ts reserved. This information is not intended as a substitute for professional medical care. Always follow your healthcare professional's instructions. documented in this encounter Progress Notes Terry Dean MD - 06/18/2014 2:53 PM PSTFormatting of this note might be different f rom the original. Pulmonary Consult Note 06/18/2014 HPI Sherron Deanna Patino is a 73 y.o. female patient of Jared Hahn [facility] here today for evaluation of asthma. She notes that they first started having issues with their breathing approximately 10 years ago. At that time they presented with symptoms of wheezing and shortness of breath. The i nitial therapy consisted of Singulair and as needed albuterol. Over the years Ms. Patino 's symptoms have been well-controlled on this regimen.. In the patient developed worsening shortness of breath associated wheezing . Her symptoms were not associated with an upper respiratory tract infection. She was seen in the clinic at [facility] and was prescribed approximately one week of prednisone. Her symptoms returned to baseline. Sherron went on to develop 2 episodes of sinusitis each treated with azithromycin. In late May her symptoms again worsened and on the she presented to the emergency department at [facility]. She was treated and discharged. The patient returned w [facility] 12 hours with persistent symptoms. Ultimately [...] none. 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 Triggers of menses asthma include cold air, heart failure or exposure to tobacco smoke. Past Medical History: Past Medical History Diagnosis Date Chronic right shoulder pain Asthma 2004 Vitamin D deficiency Lumbar scoliosis Degenerative joint disease of sacroiliac joint Allergic rhinitis COPD (chronic obstructive pulmonary disease) ([facility]) patient unware of diagnosis Abdominal hernia [...] the patient's emergenc y department visit at [facility] from 05/26/14 were also reviewed. Assessment Sherron [...]
--- OUTSIDE RECORDS SUMMARY | ~2019-04-19 | XMS | Encounter Summary ---
Demographics + + + | Address | [address] | | | [place] [address] | + + + | Home Phone | | + + + | Preferred Language | Unknown | + + + | Marital Status | | + + + | Jewish Affiliation | Unknown | + + + | Race | Unknown | + + + | Ethnic Group | Unknown | + + + Author + + + | Author | [facility] | | | and [place] | + + + | Organization | [facility] | | | and [place] | [...] [place] | | | | | [address] | | + + + + + | Radha Patino | ECON | Unknown | | + + + + + Care Team Providers + +------+ + | Care Clinical Radiologist Name | Role | Phone | + [...] | Pulmonary | Diagnoses | Jovani, | Jemraine | | | | Disease / | HOSP F/U | Jared East, | MD Terry | | | | Pulmonology | PER Y[facility]S | PA-C [address] | [address] | | | | | REQUEST/FILM | [place] | [place] | | | | | S | [place] | [place] [address] | | | | | DAVID/ | Lilian | Phone: | | | | | NEEDS 1/2 | [place] [address] | [phone] | | | | | BUT AT 1130 | Phone: | Fax: | | | | | TIME | [phone] | [phone] | | | | | Procedures | Fax: | | | | | | OFFICE VISIT | [phone] | | | | | | REGULAR | | | +--------+--------+ + + + + Encounter Details +--------+---------+ + + + | Date | Type | Department | Care Team | Description | +--------+---------+ + + + | 12/28/ | Office | [facility] | Terry Dean, | Moderate persistent | | 2017 | Visit | PULMONARY [address] | MD [address] | asthma without | | | | [place], | [place] | complication | | | | [place] [address] | [address] | | | | | [phone] | | | +--------+---------+ + + + [...] information carefully each time. Talk to your director trading regarding the use of this medicine in children. Special care may be needed. What side effects may I notice from receiving this medicine? Side effects that you should report to your doctor or health memory care program resident as soon as p ossible: allergic reactions like skin rash or hives, swelling of the face, lips, or tongue breathing problems chest pain dizziness or lightheaded fever or chills high blood pressure irregular heartbeat vision problems Side effects that usually do not require medical attention (Report these to your doctor or health memory care program resident if they continue or are bothersome.): coughing, [...] check ups. Tell your doctor or health memory care program resident if yo ur symptoms do not get [...] her standard Singulair. Pulmonary clinic [facility] was scheduled for 6 months but [...] improve and she was ultimately hospitalized at [facility] on . At the time of discharge [...] shoulder pain COPD (chronic obstructive pulmonary disease) ([facility]) patient unware of diagnosis Degenerative [...] the patient's recent hospitalization and [facility] were revi ewed. A CT scan of [...]
--- OUTSIDE RECORDS SUMMARY | ~2019-04-19 | XMS | Encounter Summary ---
Demographics + + + | Address | [address] | | | [place] [address] | + + + | Home Phone | | + + + | Preferred Language | Unknown | + + + | Marital Status | | + + + | Worship Affiliation | Unknown | + + + | Race | Unknown | + + + | Ethnic Group | Unknown | + + + Author + + + | Author | [facility] | | | and [place] | + + + | Organization | [facility] | | | and [place] [...] [place] | | | | | [address] | | + + + + + | Radha Patino | ECON | Unknown | | + + + + + Care Team Providers + +------+ + | Care Complex Case Manager Name | Role | Phone | + +------+ + PCP | Unavailable | + +------+ + Encounter Details +--------+ + + + + | Date | Type | Department | Care Team | Description | +--------+ + + + + | 06/14/ | Hospital | [facility] | Derick Zuniga | | | 2011 | Encounter | MED CTR XRAY [address] | F, MD [address] | | | | | [place] | [place], [place] | | | | | [place] [address] | [address] | | | | | [phone] | | | | | | [...] + +--------+ + + + | XR CERVICAL SPINE 2 | | 06/14/2011 | | Results for this | | OR 3 VIEWS | | 12:36 PM | | procedure are in the | | | | PST | | results section. | + +--------+ + + + documented in this encounter Results XR Cervical Spine 3 Vws or Less (06/14/2011 12:36 PM PST) + + | Specimen | + + | | + + + + + | Narrative | Performed At | + + + | [facility] Diagnostic Imaging Department | [facility] | | [address] [facility] | [facility] | | FOUR VIEWS CERVICAL SPINE | DIAG IMG | | 06/14/2011 CLINICAL HISTORY: NECK PAIN. COMPARISON: | | | Cervical MRI 03/24/2011, cervical radiographs 03/17/2011. | | | FINDINGS: An AP view and lateral views of the cervical spine in | | | neutral, flexed and extended positions are provided. Cervical | | | vertebral height is maintained, without suspicion for fracture. | | | Fusion of the C2-3 facet joints is noted. There is moderate disc | | | space narrowing and ventral spondylosis at C6-7, involving the C5-6 | | | level to a lesser degree. Multilevel facet hypertrophy is present. | | | Minimal anterolisthesis is present at C5-6 in neutral, flexed, and | | | extended positions. Minimal anterolisthesis is also noted at C4-5 | | | with active flexion. Imaged skull base, soft tissue structures and | | | lung apices are unremarkable. IMPRESSION: 1. | | | DEGENERATIVE DISC DISEASE AND SPONDYLOSIS AT C6-7 AND TO A LESSER | | | DEGREE AT C5-6, WITH MINIMAL ANTEROLISTHESIS AT C4-5 AND C5-6 | | | DISCUSSED, IN THE SETTING OF MULTILEVEL FACET HYPERTROPHY. | | | Dictated Date/Time: 06/14/2011 14:12 Transcribed Date/Time: | | | 06/14/2011 14:20 Technology Adoption Manager: <Electronically Signed | | | by Kendell Brewer MD> 06/14/11 3626 | | + + + + + | Procedure Note | + + | Steven, Rad Conversion - 06/08/2013 4:44 PM [facility] | | Diagnostic Imaging Department | | [address] [facility] | | | | | | | | FOUR VIEWS CERVICAL SPINE 06/14/2011 | | | | CLINICAL HISTORY: NECK PAIN. | | | | COMPARISON: Cervical MRI 03/24/2011, cervical radiographs 03/17/2011. | | | | FINDINGS: An AP view and lateral views of the cervical spine in neutral, | | flexed and extended positions are provided. Cervical vertebral height is | | maintained, without suspicion for fracture. Fusion of the C2-3 facet joints is | | noted. There is moderate disc space narrowing and ventral spondylosis at C6-7, | | involving the C5-6 level to a lesser degree. Multilevel facet hypertrophy is | | present. Minimal anterolisthesis is present at C5-6 in neutral, flexed, and | | extended positions. Minimal anterolisthesis is also noted at C4-5 with active | | flexion. Imaged skull base, soft tissue structures and lung apices are | | unremarkable. | | | | IMPRESSION: | | 1. DEGENERATIVE DISC DISEASE AND SPONDYLOSIS AT C6-7 AND TO A LESSER DEGREE AT | | C5-6, WITH MINIMAL ANTEROLISTHESIS AT C4-5 AND C5-6 DISCUSSED, IN THE | | SETTING OF MULTILEVEL FACET HYPERTROPHY. | | | | Dictated Date/Time: 06/14/2011 14:12 | | Transcribed Date/Time: 06/14/2011 14:20 | | Technology Adoption Manager: | | <Electronically Signed by Kendell Brewer MD> 06/14/11 2246 | + + + +---------+ + + [...]
--- OUTSIDE RECORDS SUMMARY | ~2019-04-19 | XMS | Encounter Summary ---
Demographics + + + | Address | [address] | | | [place] [address] | + + + | Home Phone | | + + + | Preferred Language | Unknown | + + + | Marital Status | | + + + | Rastafari Affiliation | Unknown | + + + | Race | Unknown | + + + | Ethnic Group | Unknown | + + + Author + + + | Author | [facility] | | | and [place] | + + + | Organization | [facility] | | | and [place] [...] [place] | | | | | [address] | | + + + + + | Radha Patino | ECON | Unknown | | + + + + + Care Team Providers + +------+ + | Care Caddy Packer Name | Role | Phone | + +------+ + PCP | Unavailable | + +------+ + Encounter Details +--------+ + + + + | Date | Type | Department | Care Team | Description | +--------+ + + + + | 06/14/ | Hospital | [facility] | Derick Zuniga | | | 2011 | Encounter | MED CTR XRAY [address] | F, MD [address] | | | | | [place] | [place], [place] | | | | | [place] [address] | [address] | | | | | [phone] | | | | | | | [...] Performed At | + + + | [facility] Diagnostic Imaging Department | [facility] | | [address] [facility] | [facility] | | FOUR VIEWS CERVICAL SPINE | [...] Transcribed Date/Time: | | | 06/14/2011 14:20 Resource Technician: <Electronically Signed | | | by Kendell Brewer MD> 06/14/11 1966 | | + + + + + | Procedure Note | + + | Steven, Rad Conversion - 06/08/2013 4:44 PM [facility] | | Diagnostic Imaging Department | | [address] [facility][1] | | | | | | | [...] | Transcribed Date/Time: 06/14/2011 14:20 | | Resource Technician: | | <Electronically Signed by Kendell Brewer [...]
--- OUTSIDE RECORDS SUMMARY | ~2019-04-19 | XMS | Encounter Summary ---
Demographics + + + | Address | [address] | | | [place] [address] | + + + | Home Phone | | + + + | Preferred Language | Unknown | + + + | Marital Status | | + + + | Druze Affiliation | Unknown | + + + | Race | Unknown | + + + | Ethnic Group | Unknown | + + + Author + + + | Author | [facility] | | | and [place] | + + + | Organization | [facility] | | | and [place] [...] [place] | | | | | [address] | | + + + + + | Radha Patino | ECON | Unknown | | + + + + + Care Team Providers + +------+ + | Care Telephone Order Dispatcher Name | Role | Phone | + +------+ + PCP | Unavailable | + +------+ + Encounter Details +--------+ + + + + | Date | Type | Department | Care Team | Description | +--------+ + + + + | 12/19/ | Hospital | [facility] | | | | 1998 | Encounter | MED CTR EMERGENCY | | | | | | CENTER [address] | | | | | | [place] | | | | | | [address] | | | | | | [phone] | | | +--------+ + + + [...]
--- OUTSIDE RECORDS SUMMARY | ~2019-04-19 | XMS | Encounter Summary ---
Demographics + + + | Address | [address] | | | [place] [address] | + + + | Home Phone | | + + + | Preferred Language | Unknown | + + + | Marital Status | | + + + | Holiness Affiliation | Unknown | + + + | Race | Unknown | + + + | Ethnic Group | Unknown | + + + Author + + + | Author | [facility] | | | and [place] | + + + | Organization | [facility] | | | and [place] | [...] [place] | | | | | [address] | | + + + + + | Radha Patino | ECON | Unknown | | + + + + + Care Team Providers + +------+ + | Care Freight Broker Name | Role | Phone | + [...] NEUROSURGERY [address] | FMD [address] | call ) | | | | [address] | [place] | | | | | [place] | [address] | | | | | [address] | [phone] | | | | | [phone] | | | +--------+ + + + [...]
--- OUTSIDE RECORDS SUMMARY | ~2019-04-19 | XMS | Encounter Summary ---
Demographics + + + | Address | [address] | | | [place] [address] | + + + | Home Phone | | + + + | Preferred Language | Unknown | + + + | Marital Status | | + + + | Latter Day Affiliation | Unknown | + + + | Race | Unknown | + + + | Ethnic Group | Unknown | + + + Author + + + | Author | [facility] | | | and [place] | + + + | Organization | [facility] | | | and [place] [...] [place] | | | | | [address] | | + + + + + | Radha Patino | ECON | Unknown | | + + + + + Care Team Providers + +------+ + | Care Classification Inspector Name | Role | Phone | + +------+ + | Jared Hahn PA-C | PCP | | + +------+ + Encounter Details +--------+ + + + + | Date | Type | Department | Care Team | Description | +--------+ + + + + | 12/08/ | Imaging | [facility] | Provider, | | | 2017 | Exam | MED CTR EXTERNAL | [place] [address] | | | | | IMAGING | [place] | | | | | [phone] | [place] [address] | | +--------+ + + + + [...] +--------+ + + + | XR CHEST PA OR AP | Routin | 05/25/2016 | | Results for this | | | e | 5:40 AM | | procedure are in the | | | | PST | | results section. | + +--------+ + + + documented in this encounter Results XR Chest PA or AP (05/25/2016 5:40 AM PST) + + | Specimen | + + | | + + + + + | Narrative | Performed At | + + + | External films for comparison only - no result from [place]. | [facility] | + + + + +---------+ + + | Performing | Address | City/State/Zipcode | Phone Number | | Organization | | | | + +---------+ + + | [facility] | | | | + +---------+ + + documented in this encounter Visit Diagnoses Not on filedocumented in this encounter"
--- OUTSIDE RECORDS SUMMARY | ~2019-04-19 | XMS | Encounter Summary ---
Demographics + + + | Address | [address] | | | [place] [address] | + + + | Home Phone | | + + + | Preferred Language | Unknown | + + + | Marital Status | | + + + | Taoism Affiliation | Unknown | + + + | Race | Unknown | + + + | Ethnic Group | Unknown | + + + Author + + + | Author | [facility] | | | and [place] | + + + | Organization | [facility] | | | and [...] [place] | | | | | [address] | | + + + + + | Radha Patino | ECON | Unknown | | + + + + + Care Team Providers + +------+ + | Care Clinical Reviewer Name | Role | Phone | + [...] | | Pulmonology | persistent | PA-C [address] | [address] | | | | | asthma, | | [place], | | | | | uncomplicate | [place] | [place] [address] | | | | | d | WAY | Phone: | | | | | Procedures | [place], | [phone] | | | | | F/U [address] | [place] [address] | Fax: | | | | | [place] | Phone: | [phone] | | | | | 01/20/18 | [phone] | | | | | | | Fax: | | | | | | | [phone] | | +--------+--------+ + + + + Encounter Details +--------+---------+ + + + | Date | Type | Department | Care Team | Description | +--------+---------+ + + + | 01/20/ | Office | [facility] | Terry Dean, | Moderate persistent | | 2018 | Visit | PULMONARY [address] | MD [address] | asthma without | | | | [place], | [place] | complication | | | | [place] [address] | [address] | (Primary Dx) | | | | [phone] | | | +--------+---------+ + + + [...] more than every 4 hours, contact your [facility] provider or seek immediate medical attention. If [...] turning garvin or blue Date Last Reviewed: 08/30/201619998125-6857 [employer]. [address] [place] [address]. All righ ts reserved. This information is [...] shoulder pain COPD (chronic obstructive pulmonary disease) ([facility]) patient unware of diagnosis Degenerative joint [...]
--- OUTSIDE RECORDS SUMMARY | ~2019-04-19 | XMS | Encounter Summary ---
Demographics + + + | Address | [address] | | | [place] [address] | + + + | Home Phone | | + + + | Preferred Language | Unknown | + + + | Marital Status | | + + + | Zoroastrian Affiliation | Unknown | + + + | Race | Unknown | + + + | Ethnic Group | Unknown | + + + Author + + + | Author | [facility] | | | and [place] | + + + | Organization | [facility] | | | and [...] [place] | | | | | [id number] | | + + + + + | Radha Patino | ECON | Unknown | | + + + + + Care Team Providers + +------+ + | Care Public Bath Attendant Name | Role | Phone | + [...] | | Disease / | Moderate | Jared East, | MD Terry | | | | Pulmonology | persistent | PA-C [id number] | [address] | | | | | asthma, | [place] | [place], | | | | | uncomplicate | WAY | [place] [address] | | | | | d | Lilian, | Phone: | | | | | Procedures | [place] [address] | [phone] | | | | | F/U | Phone: | Fax: | | | | | | [phone] | [phone] | | | | | | Fax: | | | | | | | [phone] | | +--------+--------+ + + + + Encounter Details +--------+---------+ + + + | Date | Type | Department | Care Team | Description | +--------+---------+ + + + | 07/19/ | Office | [facility] | Terry Dean, | Moderate persistent | | 2018 | Visit | PULMONARY [address] | MD [address] | asthma with acute | | | | [place], | [place] | exacerbation | | | | [place] [address] | [id number] | (Primary Dx) | | | | [phone] | | | +--------+---------+ + + + [...] + + + | Blood Pressure | 126/80 | 07/19/2017 3:50 PM | | | | | PDT | | + + + + + | Pulse | 90 | 07/19/2017 3:50 PM | | | | | PDT | | + + + + + | Temperature | - | - | | + + + + + | Respiratory Rate | - | - | | + + + + + | Oxygen Saturation | 96% | 07/19/2017 3:50 PM | | | | | PDT | | + + + + + | Inhaled Oxygen | - | - | | | Concentration | | | | + + + + + | Weight | 81.4 kg (179 lb 7.3 | 07/19/2017 3:50 PM | | | | oz) | PDT | | + + + + + | Height | 149.9 cm (4' 11") | 07/19/2017 3:50 PM | | | | | PDT | | + + + + + | Body Mass Index | 36.25 | 07/19/2017 3:50 PM | | | | | PDT | | + + + + + documented in this encounter Patient Instructions Patient Instructions Terry Dean MD - 07/19/2017 4:00 PM PDT Prednisone tablets Brand Names: Deltasone, Predone, Sterapred, Sterapred DS What is this medicine? PREDNISONE (PRED ni sone) is a corticosteroid. It is commonly used to treat inflammation of the skin, joints, lungs, and other organs. Common conditions treated include asthma, allerg ies, and arthritis. It is also used for other conditions, such as blood disorders and diseas es of the adrenal glands. How should I use this medicine? Take this medicine by mouth with a glass of water. Follow the directions on the prescriptio n label. Take this medicine with food. If you are taking this medicine once a day, take it i n the morning. Do not take more medicine than you are told to take. Do not suddenly stop deondre ing your medicine because you may develop a severe reaction. Your doctor will tell you how m uch medicine to take. If your doctor wants you to stop the medicine, the dose may be slowly lowered over time to avoid any side effects. Talk to your winding operator regarding the use of this medicine in children. Special care may be needed. What side effects may I notice from receiving this medicine? Side effects that you should report to your doctor or health palliative care coordinator as soon as p ossible: allergic reactions like skin rash, itching or hives, swelling of the face, lips, or tong ue changes in emotions or moods changes in vision depressed mood eye pain fever or chills, cough, sore throat, pain or difficulty passing urine increased thirst swelling of ankles, feet Side effects that usually do not require medical attention (report to your doctor or health palliative care coordinator if they continue or are bothersome): confusion, excitement, restlessness headache nausea, vomiting skin problems, acne, thin and shiny skin trouble sleeping weight gain What may interact with this medicine? Do not take this medicine with any of the following medications: metyrapone mifepristone This medicine may also interact with the following medications: aminoglutethimide amphotericin B aspirin and aspirin-like medicines barbiturates certain medicines for diabetes, like glipizide or glyburide cholestyramine cholinesterase inhibitors cyclosporine digoxin diuretics ephedrine female hormones, like estrogens and control pills isoniazid ketoconazole NSAIDS, medicines for pain and inflammation, like ibuprofen or naproxen phenytoin rifampin toxoids vaccines warfarin What if I miss a dose? If you miss a dose, take it as soon as you can. If it is almost time for your next dose, ta lk to your doctor or health palliative care coordinator. You may need to miss a dose or take an extra dose. Do not take double or extra doses without advice. Where should I keep my medicine? Keep out of the reach of children. Store at room temperature between 15 and 30 degrees C (59 and 86 degrees F). Protect from l ight. Keep container tightly closed. Throw away any unused medicine after the expiration davon e. What should I tell my health care provider before I take this medicine? They need to know if you have any of these conditions: [place]'s syndrome diabetes glaucoma heart disease high blood pressure infection (especially a virus infection such as chickenpox, cold sores, or herpes) kidney disease liver disease mental illness myasthenia gravis osteoporosis seizures stomach or intestine problems thyroid disease an unusual or allergic reaction to lactose, prednisone, other medicines, foods, dyes, or preservatives or trying to get breast-feeding What should I watch for while using this medicine? Visit your doctor or health palliative care coordinator for regular checks on your progress. If you a re taking this medicine over a prolonged period, carry an identification card with your name and address, the type and dose of your medicine, and your doctor's name and address. This medicine may increase your risk of getting an infection. Tell your doctor or health ca re professional if you are around anyone with measles or chickenpox, or if you develop sores or blisters that do not heal properly. If you are going to have surgery, tell your doctor or health palliative care coordinator that you hav e taken this medicine within the last twelve months. Ask your doctor or health palliative care coordinator about your diet. You may need to lower the amou nt of salt you eat. This medicine may affect blood sugar levels. If you have diabetes, check with your doctor o r health palliative care coordinator before you change your diet or the dose of your diabetic medicine . NOTE:This sheet is a summary. It may not cover all possible information. If you have questi ons about this medicine, talk to your doctor, pharmacist, or health care provider. Copyright 2017 [employer] documented in this encounter Progress Notes Terry Dean MD - 07/19/2017 4:00 PM PDTFormatting of this note might be different f rom the original. Pulmonary Follow Up 07/19/2017 HPI Sherron Patino is a 76 y.o. female patient of Caro Clement PA-C here tod ay for follow up of asthma. The patient's last visit was on 01/18/17. Since the last visit she feels like their asthma has been fluctuating some. They have not had any acute illnesses resulting in worsening ast hma symptoms. They have required a burst of prednisone since our last appointment. Specif ically 1 tapers of prednisone have occurred over the interval. Lastly Sherron notes 0 ED visit s and 0 hospitalizations for asthma have occurred since the last appointment. Earlier this month the patient developed cough, low-grade fever wheezing and worsening shor tness of breath. Ms. Patino was initially treated with a Z-Jignesh. A week later she receiv ed 5 days of prednisone (dose unknown). Though the patient's symptoms improved they have gr adually worsened over the last week. Their controller medication regimen currently consists of Singulair and Dulera. They do fe el like this medication regimen is effective at controlling their symptoms. Currently Sherron is using their rescue albuterol, Proventil, 0 times a day. They have DuoNeb for use in a n ebulizer and use it 0-4 times a day. Triggers of their asthma include UTI. She does not have nocturnal symptoms of wheezing, ch est tightness or cough. She does not measure their peak flow. Currently Sherron reports being able to walk several 100 feet at their own pace on [facility] before becoming symptomatic. They are not exercising regularly. Current exercise consis ts of walking. She does cough chronically, and does not produce mucous. Sherron does not report symptoms of heartburn or acid reflux. They have not had recent sympto ms of nasal congestion, runny nose or post nasal drip. New triggers since the last appointment include none. Sherron Patino is not smoking cigarettes. The patient have received this year's influenza vaccination. They are up to date with thei r Pneumovax and Prevnar 13. Past Medical History Past Medical History: Diagnosis Date Abdominal hernia Acid reflux disease Allergic rhinitis Alopecia Arthritis Left knee Asthma 2004 Carpal tunnel syndrome Left Cervicalgia Chronic right shoulder pain COPD (chronic obstructive pulmonary disease) ([facility]) patient unware of diagnosis Degenerative joint [...] 65 Y OR >, TRIVALENT HIGH-DOSE 01/12/2016, 02/14/2017 INFLUENZA PF 18 Y OR >,TRIVALENT RECOMBINANT 01/30/2014 PNEUMOCOCCAL CONJUGATE 13-VALENT (PCV13) 01/12/2016 PNEUMOCOCCAL POLYSACCHARIDE 23-VALENT (PPSV23) 02/11/1998, 02/12/2003, 06/18/2009 Objective BP 126/80 | Pulse 90 | Ht 1.499 m (4' 11") | Wt 81.4 kg (179 lb 7.3 oz) | SpO2 96% | B reastfeeding? No | BMI 36.25 kg/m Appearance: Alert, cooperative, no distress, appears stated age. Head: Normocephalic, without obvious abnormality, atraumatic. Eyes: PERRL, conjunctiva/corneas clear. Nose: Nares normal, septum midline, mucosa normal, no drainage or sinus tenderness. Throat: Lips, mucosa, and tongue normal. Teeth/dentures normal. No thrush. Neck: Supple, symmetrical, no JVD. Lungs: No accessory muscle use, breath sounds diffuse expiratory wheezes bilaterally, no crackles or rhonchi. No dullness to percussion. Chest Wall: No tenderness or deformity. Heart: Regular rate and rhythm, S1, S2 normal, no murmur, rub or gallop. Extremities: Extremities normal, atraumatic, no cyanosis, clubbing. none edema. Skin: Warm and dry. Lymph nodes: Cervical and supraclavicular nodes normal. Neurologic: Gait normal. Data: None Assessment 1. Asthma moderate persistent. Currently treated with Dulera 200/5, 2 puffs twice daily and Singulair at bedtime. Over the last 6 months Ms. Patino has done well from a pulmon mike perspective with the exception of approximately 3 weeks ago when she developed what soun ds like a viral upper respiratory tract infection and subsequent worsening of her asthma. T he patient was initially treated with azithromycin and subsequently 5 days of prednisone. Her symptoms have been worsening over the last 7 days. The patient's symptoms and wheezing on exam are consistent with an asthma exacerbation. I have recommended another course of systemic corticosteroids. Plan 1. Prednisone taper starting at 40 mg a day and decreasing by 10 mg every 3 days. 2. Otherwise no change in the patient's asthma medication regimen over the next 6 months. 3. I have encouraged Ms. Patino to use her DuoNeb or albuterol metered-dose inhaler up to every 4 hours over the next several days until her symptoms improve. CC: RAF Dunbar-C documented in this encounter Plan of Treatment Not on filedocumented as of this encounter Visit Diagnoses + + | Diagnosis | + + | Moderate persistent asthma with acute exacerbation - Primary | + + documented in this encounter
--- OUTSIDE RECORDS SUMMARY | ~2019-04-19 | XMS | Encounter Summary ---
Demographics + + + | Address | [address] | | | [place] [address] | + + + | Home Phone | | + + + | Preferred Language | Unknown | + + + | Marital Status | | + + + | Yarsani Affiliation | Unknown | + + + | Race | Unknown | + + + | Ethnic Group | Unknown | + + + Author + + + | Author | [facility] | | | and [place] | + + + | Organization | [facility] | | | and [place] [...] [place] | | | | | [phone] | | + + + + + | Radha Patino | ECON | Unknown | | + + + + + Care Team Providers + +------+ + | Care [employer] Business Teacher Name | Role | Phone | + +------+ + | Jared Hahn PA-C | PCP | | + +------+ + Reason for Visit + + + | Reason | Comments | + + + | Shortness of Breath | | + + + Auth/Cert +--------+--------+ + + + + | Status | Reason | Specialty | Diagnoses / | Referred By | Referred To | | | | | Procedures | Contact | Contact | +--------+--------+ + + + + | | | | Diagnoses | | | | | | | Asthma | | | | | | | exacerbation | | | | | | | Dyspnea, | | | | | | | unspecified | | | | | | | type | | | +--------+--------+ + + + + Encounter Details +--------+ + + + + | Date | Type | Department | Care Team | Description | +--------+ + + + + | 11/27/ | Hospital | [facility] | Britton Aguilar, | Asthma exacerbation | | 2017 - | Encounter | [facility] | [address] | (Primary Dx); | | | | [address] [place] | [place], [place] | Dyspnea, unspecified | | 12/01/ | | [place] [address] | [id number] | type | | 2017 | | [phone] | | | | | | | Elisabeth, | | | | | | MD Jefferson [address] | | | | | [address] [place] | | | | | | [place] [address] | | | | | | [phone] | | | | | | | [...] + + + | Blood Pressure | 133/64 | 12/01/2016 7:09 AM | | | | | PDT | | + + + + + | Pulse | 74 | 12/01/2016 8:00 AM | | | [...] + | Oxygen Saturation | 95% | 12/01/2016 8:00 AM | | | | | PDT | | + + + + + | Inhaled Oxygen | - | - | | | Concentration | | | | + + + + + | Weight | 75.5 kg (166 lb 7.2 | 11/27/2016 3:57 PM | | | | oz) | PDT | | + + + + + | Height | 149.9 cm (4' 11.02") | 11/27/2016 3:57 PM | | | | | PDT | | + + + + + | Body Mass Index | 33.6 | 11/27/2016 3:57 PM | | | | | PDT | | + + + + + documented in this encounter Discharge Summaries Flavia Madrigal RN - 12/01/2016 12:50 PM PDTIV taken out. DC info reviewed with pt and daughter Benedicto, they stated understanding. TIP PRINTER took pt out in w/c at 12:50pm with daughter at her side and bag of belongings. Electronically signed by Flavia Madrigal RN at 2016 12:51 PM PDTCrow, Nieves Murillo MD - 12/01/2016 9:02 AM PDTFormatting of this note might b e different from the original. DISCHARGE SUMMARY Patient Name: Sherron Patino : 1940 Date of Admission: 11/27/2016 Date of Discharge: 12/01/2016 Admitting Physician: Jefferson Doll MD Discharging Physician: Nieves Kan MD Primary Care Provider: Jared Hahn PA-C Discharge Diagnoses: Principal Problem: Asthma exacerbation Active Problems: COPD (chronic obstructive pulmonary disease) Dyspnea, unspecified type Resolved Problems: * No resolved hospital problems. * Patient Active Problem List Diagnosis OTHER SPECIFIED DISORDER OF KIDNEY AND URETER OSTEOARTHRITIS FATTY LIVER DISEASE ABDOMINAL PAIN COPD (chronic obstructive pulmonary disease) Asthma exacerbation Dyspnea, unspecified type Consultants: None Procedures: CT angiogram 11/29/2016 (negative for acute disease; mild atelectasis in lung bases) Reason for Admission: Shortness of breath, sensation of throat closing Please refer to the H&P for full details. In short, this is a 75 y.o. female with a histor y of asthma with several exacerbations over the last few years who presented three times wit h laryngeal spasm and was admitted to bring it under control. Problem-Oriented Hospital Course: 1. Acute exacerbation of bronchial asthma: This is most likely the case that the patient bishop s a very remote history of smoking and she has had asthma for several years now. She was peter ated with scheduled nebulized bronchodilators treatments, IV steroids, IV levaquin. She req uired no oxygen therapy.She has recovered to her baseline. Cultures of sputum were negati ve for bacterial pathogens; she has completed five days of levaquin and requires no more ant ibiotics. She did, however, culture large numbers of Jemima, which may well be causing lar yngeal spasm and will be discharged on fluconazole 100mg daily for 14 days. 2. Recurrent laryngeal spasms likely consequent to yeast in respiratory tract. 4. GERD: The patient has a history of GERD and was taking omeprazole 20 mg daily. In order to allow her to clear yeast, will temporarily switch to famotidine. 5. Leukocytosis: Improved but still somewhat elevated; attributed to steroids. 6. CKD stage III: Her GFR is in the 50s and I don't have a baseline for her and is no evide nce that she is dehydrated. eGFR recovered to above 60 ml/hr and has remained stable. Code Status: Full Code Disposition: Home Discharge Condition: Good Follow-up Information Jared Hahn PA-C In 2 days. Specialty: Physician Lift Supervisor-Medical Contact information: [id number] [place] [id number] Discharge Medications New Medications Details famotidine 40 mg/5 mL suspension Take 2.5 mLs by mouth 2 times daily. aka: PEPCID fluconazole 100 mg tablet Take 1 tablet by mouth Daily for 14 days. aka: DIFLUCAN Changed Medications Details predniSONE 20 mg tablet Take 1 tablet by mouth Daily. For 5 days What changed: how much to take aka: DELTASONE Unchanged Medications Details albuterol-ipratropium 2.5-0.5 mg/3 mL Soln Take 3 mLs by nebulization every 6 hours. aka: DUONEB fluticasone 50 mcg/nasal spray 1 spray by Each Nare route Daily. aka: FLONASE loratadine 10 mg tablet Take 10 mg by mouth Daily as needed for Allergies. aka: CLARITIN mometasone 220 mcg/puff inhaler Inhale 2 puffs into the lungs 2 times daily. aka: ASMANEX montelukast 10 mg tablet Take 10 mg by mouth nightly. aka: SINGULAIR PROVENTIL HFA 90 mcg/puff inhaler Generic drug: albuterol Inhale 2 puffs into the lungs every 4 hours as needed for Wheezing or Shortness of Breath. Discontinued Medications azithromycin 250 mg tablet aka: ZITHROMAX Studies With Pending Results: None Greater than 30 minutes were spent on discharge and coordination of post-hospital care. Electronically signed by: Nieves Kan MD, 12/01/2016 9:23 [facility] documented in this enc ounter Discharge Instructions Instructions Nieves Kan MD - 12/01/2016 Asthma Trigger Checklist Allergens, irritants, and other things may trigger your asthma. Check the box next to each of your triggers. After each trigger is a list of ways to avoid it. Dust mites. Dust mites live in mattresses, bedding, carpets, curtains, and indoor dust. To kill dust mites, wash bedding in hot water (130F) each week. Cover mattress and pillows with special bvvi-dyey-kyaoglletd. Don t use upholstered furniturelike sofas or chairsin the bedroom. Use allergy-proof filters for air conditioners and furnaces. Replace or clean them as in structed. If you can, replace carpeting with wood or tile vlad, especially in the bedroom. Animals. Animals with fur or feathers shed dander (allergens). It s best to choose a pet that doesn t have fur or feathers, such as a fish or a rep tile. If you have pets, keep them off of your bed and out of your bedroom. Wash your hands and clothes after handling pets. Mold. Mold grows in damp places, such as bathrooms, basements, and closets. Ask someone to clean damp areas in your home every week. Or try wearing a face mask whil e you clean. Run an exhaust fan while bathing. Or leave a window open in the bathroom. Repair water leaks in or around your home. Have someone else cut grass or rake leaves, if possible. Don t use vaporizersorhumidifiers. They encourage mold growth. Pollen. Pollen from trees, grasses, and weeds is a common allergen. (Flower pollens are generally not a problem). Try to learn what types of pollen affect you most. Pollen levels vary depending on the p lant, the season, and the time of day. If possible, use air conditioning instead of opening the windows in your home or car. Have someone else do yard work, if possible. Cockroaches. Roaches are found in many homes and produce allergens. Keep your kitchen clean and dry. A leaky faucet or drain can attract roaches. Remove garbage from your home daily. Store food in tightly sealed containers. Wash dishes as soonas they are used. Use bait stations or traps to control roaches. Avoid using chemical sprays. Smoke. Smoke may be from cigarettes, cigars, pipes, incense or candles, barbecues or gri lls, and fireplaces. Don t smoke. And don t let people smoke in your home or car. When you travel, ask for nonsmoking rental cars and hotel rooms. Avoid fireplaces and wood stoves. If you can t, sit away from them. Make sure the smok e is directed outside. Don t burn incenseor use candles. Move away from smoky outdoor cooking grills. Smog. Smog is from car exhaust and other pollution. Read or listen to local air-quality reports. These let you know when air quality is poor . Stay indoors as much as you can on smoggy days. If possible, use air conditioning instea d of opening the windows. In your car, set air conditioning to recirculate air, so less pollution gets in. Strong odors. These include air fresheners, deodorizers, and cleaning products; perfume, deodorant, and other beauty products; incense and candles; and insect sprays and other spra ys. Use scent-free products like deodorantorbodylotion. Avoid usingcleaning products withbleach and ammonia.Make your own cleaning solutio nwith white vinegar, baking soda,or mild dish soap. Use exhaust fans while cooking.Or open a window, if possible. Avoid perfumes, air fresheners, potpourri, and other scented products. Other irritants. These include dust, aerosol sprays, and powders. Wear a face mask while doing tasks like sanding, dusting, sweeping, and yard work.Open doors and windows if working indoors. Use pump spray bottles instead of aerosols. Pour liquid hay buckler onto a rag or cloth instead of spraying them. Weather. Weatherconditionscan triggersymptomsormake them worse. Watch for very high or low temperatures, very humid conditions, or a lot of wind, as the se conditions can make symptoms worse. Limit outdoor activity during the type of weather that affects you. Weara scarf over your mouth and nose in cold weather. Colds, flu, and sinus infections. Upper respiratory infections can trigger asthma. Wash your hands often with soap and warm water orusea hand third loader containing alco hol. Get a yearly flu shot.And ask if you should get a pneumonia vaccine. Take care of your general health. Get plenty of sleep. And eat a variety of healthy food s. Food additives. Food additives can trigger asthma flare-ups in some people. Check food labels for sulfites or other similar ingredients. These are often found in fo ods such as wine, beer, and dried fruits. Avoid foods that contain these additives. Medicine. Aspirin, NSAIDS like ibuprofen and naproxen,and heart medicines like beta-bl ockers may be triggers. Tell your health care provider if youthink certain medicines trigger symptoms. Be sure to read the labels on uvxr-hzh-zutgkip medicines.They may have ingredients titi t cause symptoms for you. , Emotions. Laughing, crying, or feeling excited are triggers for some people. To help you stay calm: Try breathing in slowly through your nose for a count of 2 second s. Close your lips and breathe out for 4 seconds. Repeat. Try to focus on a soothing image in your mind. This will help relax you and calm your br eathing. Remember to take your daily controller medicines. When you re upset or under stress, i t s easy to forget. Exercise. For some people, exercise can triggersymptoms.Don t letthiskeep you from being active. If you have not been exercising regularly, start slow and work up gradually. Take all of your medicines as prescribed. If you use quick-reliefmedicine, make sure you have itwith you when you exercise. Stopif youhave any symptoms.Make sure you talk with your provider about these symp toms. Date Last Reviewed: 05/02/201619992850-4712 [employer]. [address] [place] [address], [place] [address]. All righ ts reserved. This information is not intended as a substitute for professional medical care. Always follow your healthcare professional's instructions. Controlling Asthma Triggers: Irritants Irritants are things in the air that can trigger symptoms in some people with asthma or STUDY HALL SUPERVISOR D. Below are some common irritants. Some are tiny particles and others are dissolved in the air. You will also find tips to help you stay away from them. Wear a mask when working around fine particles, like dust or residue from sanding. Smoke This is from cigarettes, cigars, pipes, barbecues, outdoor campfires,and fireplaces. Don t smoke. And don t let people smoke in your home or car. When you travel, ask for rental cars and hotel rooms that are smoke-free. Stay away from fireplaces and wood stoves. If you can t, sit away from them. Make sure the smoke goes outside. Don t burn incense or use candles. Move away from smoky outdoor cooking grills. Smog This is from car exhaust and other pollution. Read or listen to local air quality reports. These let you know when air quality is poor . Stay indoors as much as you can on smoggy days. If possible, use air conditioning instea d of opening the windows. Air conditioners filter the air. The filter needs to be cleaned re gularly. In your car, set air conditioning to use air only inside the car. This will let in less pollution. Strong odors These are from air fresheners, deodorizers, and cleaning products. They are also from perfu mes, deodorants, and other beauty products. Strong odors also come from incense and candles, and insect sprays and other sprays. The chlorine in swimming pools can affect some people. Use products with no scent. An example is scent-free deodorant or body lotion. Do not use products with bleach and ammonia for cleaning.Try makinga cleaning soluti on with white vinegar, baking soda, or mild dish soap. Use exhaust fans while cooking. Or open a window if you can. Do not use perfumes, air fresheners, potpourri, and other scented products. Other irritants These are dust, aerosol sprays, and fine powders. Wear a mask while doing tasks like sanding, dusting, sweeping, and yardwork. Make sure a ny indoor work area is well-ventilated. Open doors and windows when doing these tasks. Use pump spray bottles instead of aerosols. Pour liquid hay buckler instead of spraying them. For example, instead of spraying a window with belt cleaner, pour some on a rag or cloth. If you have a quick-relief inhaler, carry it with you at all times. If you can t avoid an area with irritants, watch for symptoms. If you have symptoms, leave the area and use your quick-relief inhaler as directed. Date Last Reviewed: 01/31/201619990119-6093 [employer]. [address] [place] [address], [place] [address]. All righ ts reserved. This information is not intended as a substitute for professional medical care. Always follow your healthcare professional's instructions. Controlling Asthma Triggers: Animals Keep pets off beds and upholstered furniture. Having allergies to animals can trigger asthma flare-ups. Yourhealthcare provider may evelina t you for allergies to several types of animals, both pets and pests. Theallergies areca used byan animal s dry skin flakes (dander), feathers, droppings, urine, and saliva. If you are allergic to pets,you can dosome things to lessen your symptoms. Keeping your home clean Dust often with a damp cloth to lessen pet dander. Keep your pets off of your bed and out of your bedroom. You spend a big part of each day there sleeping. But even if you keep your pet out of the bedroom, pet allergen will be ther e. When you sit on the couch in the living room and then go into the bedroom, youbring the allergen with you. Keep your pets off of upholstered furniture, like sofas and chairs, and out of rooms wit h carpeting. Use a special bag for your vacuum or use a vacuum designed to lessen pet dander and hair on carpeting. Think about buying a home air belt cleaner with a HEPA (high-efficiency particulate air) filt er. They help to remove allergens in the air. Keep your kitchen clean and free of food crumbs. Don't leave food crumbs elsewhere in th e house. These can attract mice and other pests. These pests can trigger asthma. Away from home You may have to stay out of homes with pets. Even if the pets are outdoors during a visi t, the dander remains in the house. When spending the night somewhere, ask to sleep in a room where pets aren't allowed. Choosing a pet If you are considering a new pet, this is what you should know: For people with allergies to dogs and cats, it is not the length of the fur or coat or t he amount of shedding that matters. All dogs and cats have dander. No dog or cat is complete ly allergen-free. Fish and reptiles don't cause allergies. Date Last Reviewed: 01/31/201619991567-0560 [employer]. [address] [place] [address], [place] [address]. All righ ts reserved. This information is not intended as a substitute for professional medical care. Always follow your healthcare professional's instructions. documented in this encounter Medications at Time of Discharge + + + +---------+ + + | Medication | Sig | Dispensed | Refills | Start | End Date | | | | | | Date | | + + + +---------+ + + | albuterol | Inhale 2 puffs into | | 0 | | | | (PROVENTIL HFA) 90 | the lungs every 4 | | | | | | mcg/puff inhaler | hours as needed for | | | | | | | Wheezing or | | | | | | | Shortness of Breath. | | | | | + + + +---------+ + + | fluticasone | 1 spray by Each Nare | | 0 | | | | (FLONASE) 50 | route Daily. | | | | | | mcg/nasal spray | | | | | | + + + +---------+ + + | loratadine | Take 10 mg by mouth | | 0 | | | | (CLARITIN) 10 mg | Daily as needed for | | | | | | tablet | Allergies. | | | | | + + + +---------+ + + | montelukast | Take 10 mg by mouth | | 0 | | | | (SINGULAIR) 10 mg | nightly. | | | | | | tablet | | | | | | + + + +---------+ + + | | Take 3 mLs by | | 0 | | | | albuterol-ipratropiu | nebulization every 6 | | | | 7 | | m (DUONEB) 2.5-0.5 | hours. | | | | | | mg/3 mL SOLN | | | | | | + + + +---------+ + + | famotidine | Take 2.5 mLs by | 240 mL | 1 | 12/02/19 | | | (PEPCID) 40 mg/5 mL | mouth 2 times daily. | | | 17 | 7 | | suspension | | | | | | + + + +---------+ + + | fluconazole | Take 1 tablet by | 14 | 0 | 12/02/19 | | | (DIFLUCAN) 100 mg | mouth Daily for 14 | tablet | | 17 | 7 | | tablet | days. | | | | | + + + +---------+ + + | mometasone | Inhale 2 puffs into | | 0 | | | | (ASMANEX) 220 | the lungs 2 times | | | | 7 | | mcg/puff inhaler | daily. | | | | | + + + +---------+ + + | predniSONE | Take 1 tablet by | 5 | 0 | 12/02/19 | | | (DELTASONE) 20 mg | mouth Daily. For 5 | tablet | | 17 | 7 | | tablet | days | | | | | + + + +---------+ + + documented as of this encounter Progress Notes Nieves Kan MD - 12/01/2016 8:59 AM PDTSee discharge summary. Jayla Gay RRT - 11/29/2016 11:51 PM PDTPa tient is not wearing cont. Aerosol mask states is taking another break. Electronically sign ed by Jayla Koch RRT at 11/29/2016 11:51 PM Jefferson Mohamud MD - 11/29/2016 10:1 7 PM PDT [facility] HOSPITALIST PROGRESS NOTE Patient: Sherron Patino : 1940: Age: 75 y.o. MedRec: [id number] PCP: Jared Hahn PA-C Admission date: 11/27/2016 Hospital day # : 2 Physician author: Jefferson Doll MD Today: 11/29/2016 SUBJECTIVE: Ms Patino is being seen in follow up of acute bronchitis superimposed on bronchial asthm a exacerbation. She feels a little bit better today although she continues to have laryngea l spasms. She does indicate that the interval between them has definitely increased. The res piratory therapist told me that the patient has not been coughing adequately. But the patie nt's daughter and another family member with at her bedside at the time of my visit. Review of systems: Pertinent positives as noted under subjective. All other systems were r eviewed and are negative Scheduled Meds: albuterol-ipratropium 3 mL Nebulization RT Q4H budesonide 0.5 mg Nebulization RT BID enoxaparin 40 mg Subcutaneous Daily famotidine 20 mg Oral BID guaiFENesin 600 mg Oral BID levoFLOXacin 750 mg Intravenous Every Other Day methylPREDNISolone sodium succinate 40 mg Intravenous 4 times per day senna 8.6 mg Oral BID Continuous Infusions: sodium chloride 0.45% 1,000 mL (11/29/16 1358) PRN Meds:.acetaminophen OR acetaminophen, albuterol, benzonatate, bisacodyl, LORazepam OR LORazepam, ondansetron OR ondansetron, phenol, traZODone VITALS: Temp: 37.2 C (99 F), Pulse: 98, Resp: 20, BP: 142/74, SpO2 92 % on continuous aerosol a t flow rate 10L/min Temp Min: 35.8 C (96.4 F) Max: 37.4 C (99.3 F) Weight: 75.5 kg (166 lb 7.2 oz) I/O last 3 completed shifts: In: 4859 [P.O.:2250; I.V.:2459; IV Piggyback:150] Out: 4950 [Urine:4950] I/O this shift: In: 400 [P.O.:400] Out: 800 [Urine:800] PHYSICAL EXAM: Gen Merry - elderly woman seen at the bedside in the ED. She was alert, or iented 3, not pale, anicteric, and afebrile. She was cooperative and in no distress, Head - Normocephalic, without obvious abnormality Eyes - PERRL, conjunctiva/corneas clear ENT - mucous membranes moist Neck - supple Lungs - expiratory rhonchi noted throughout both lung cedeño anteriorly and posteriorly. Transmitted sounds were also noted. Improved air entry was noted Heart - normal rate, regular rhythm, normal S1, S2, no murmurs, rubs, clicks or gallops Abdomen - soft, non-tender, without masses or organomegaly and No ventral hernias Extremities - no peripheral edema, no clubbing or cyanosis Skin - no rashes, no ecchymoses, no petechiae, no wounds Neurologic - Alert and oriented x 3. No focal neurological deficits were appreciated Psychiatric appropriate affect and mood DIAGNOSTIC STUDIES: Available data and images were reviewed personally. Significant results and findings are a ddressed here or in the Assessment and Plan. Recent Results (from the past 24 hour(s)) CBC with Differential Result Value Ref Range WBC 18.3 (H) 4.0 - 11.0 K/uL RBC 4.88 3.70 - 5.20 M/uL Hgb 14.5 11.5 - 16.0 g/dL Hct 43.9 34.0 - 47.0 % MCV 89.8 83.0 - 101.0 fL MCH 29.8 28.0 - 35.0 pg MCHC 33.2 32.0 - 36.0 g/dL RDW-CV 13.5 <15.0 % Platelet Count 250 140 - 440 K/uL MPV 9.3 fL % Neutrophils 92.1 (H) 45.0 - 82.0 % % Lymphocytes 4.7 (L) 20.0 - 45.0 % % Monocytes 3.0 (L) 4.0 - 12.0 % % Eosinophils 0.0 0.0 - 5.0 % % Basophils 0.2 0.0 - 1.0 % Absolute Neutrophils 16.80 (H) 1.80 - 8.50 K/uL Absolute Lymphocytes 0.90 0.60 - 3.20 K/uL Absolute Monocytes 0.50 0.00 - 1.00 K/uL Absolute Eosinophils 0.00 0.00 - 0.40 K/uL Absolute Basophils 0.00 0.00 - 0.10 K/uL Basic Metabolic Panel Result Value Ref Range NA 139 136 - 149 mmol/L K 4.0 3.5 - 5.1 mmol/L CL 109 98 - 109 mmol/L CO2 22 (L) 24 - 31 mmol/L ANION GAP 8 3 - 16 mmol/L GLUCOSE 131 (H) 70 - 109 mg/dL BUN 13 7 - 18 mg/dL Creatinine, Serum/Plasma 0.86 0.60 - 1.30 mg/dL eGFR if not >60 >=60 mL/min/1.73m2 CALCIUM 8.1 (L) 8.3 - 10.5 mg/dL BUN/CREA 15.1 Magnesium Result Value Ref Range MG 2.6 (H) 1.8 - 2.5 mg/dL Phosphorus Result Value Ref Range PHOSPHORUS 2.5 2.5 - 4.6 mg/dL Current Facility-Administered Medications: acetaminophen 650 mg Oral Q4H PRN Or acetaminophen 650 mg Oral Q4H PRN albuterol 2.5 mg Nebulization RT Q2H PRN albuterol-ipratropium 3 mL Nebulization RT Q4H benzonatate 200 mg Oral TID PRN bisacodyl 10 mg Rectal Daily PRN budesonide 0.5 mg Nebulization RT BID enoxaparin 40 mg Subcutaneous Daily famotidine 20 mg Oral BID guaiFENesin 600 mg Oral BID [START ON 11/29/2016] levoFLOXacin 750 mg Intravenous Every Other Day LORazepam 0.5 mg Intravenous Nightly PRN Or LORazepam 0.5 mg Oral Nightly PRN methylPREDNISolone sodium succinate 40 mg Intravenous 4 times per day ondansetron 4 mg Oral Q6H PRN Or ondansetron 4 mg Intravenous Q6H PRN phenol 5 spray Mouth/Throat Q2H PRN senna 8.6 mg Oral BID sodium chloride 0.45% Intravenous Continuous traZODone 25 mg Oral Nightly PRN ASSESSMENT and PLAN: 1. Acute exacerbation of bronchial asthma: Continue scheduled neb treatments, IV steroids, IV antibiotic therapy. Follow clinically for improvement 2. Acute bronchitis: Continue Iv Levaquin every other day and symptomatic therapy with anti tussives. Follow clinically for improvement 3. Recurrent laryngeal spasms: Continue supportive therapy as needed. She may need to follo w up with ENT after discharge if indicated 4. GERD: continue omeprazole 20 mg daily 5. Leukocytosis: Follow the trend over the next couple of days; her WBC may remain elevated due to steroid therapy 6. JOSEF: Resolved. Continue to monitor renal function and avoid nephrotoxic drugs. 7. VTE prophylaxis: Continue Lovenox 40 mg subcu daily and SCDs while in bed 8. Discharge planning: Possible discharge home tomorrow if clinically stable Total time of approximately 30 minutes was spent with the patient and family, of which more than 50% was spent counseling and/or coordination the patient's care as outlined above. Jefferson Doll 11/29/2016 22:17 [facility] ayla Koch R RT - 11/29/2016 8:16 PM PDTPatient not wear aerosol mask, stated she was taking a break. E lectronically signed by: Jayla Koch RRT 11/29/2016 20:16 Belem Powell, Azeem armD - 11/29/2016 2:24 PM PDT PHARMACY SERVICES: ADMISSION MEDICATION REVIEW Sherron Patino is a 75 y.o. female admitted on 11/27/16. Patient is a reliable historian. Location of Patient when reviewed: x ED Patient s prior to admit medication and over the counter (OTC) medications/herbal supplem ents list obtained from: x Verbal interview x Patient ABLE to recall name, strength, and directions x Pharmacy list names: [facility] [place] (no fills since December 2015), [facility] [place][note 3] x [employer] insurance reported information x Care Everywhere Vaccines up to date? Yes No Unsure Influenza x Pneumococcal x Tdap x Shingles x Noted medications discrepancies or medication-related issues: Dosage change: Medication: Prior to Admission Sig: Correct sig: Asmanex 220 mcg/act inhaler Inhale 2 puffs into the lungs daily Inhale 2 puffs into the johnnie gs twice daily Azithromycin 250 mg 1 tablet by mouth daily 2 tablets by mouth today, then 1 tablet daily until all taken (start date: 11/23/16) Fluticasone 50 mcg/act nasal spray 1 spray daily 1 spray in each nare daily Loratadine 10 mg 1 tablet by mouth as needed 1 tablet by mouth daily as needed for allergie s Montelukast 10 mg 1 tablet by mouth daily 1 tablet by mouth nightly Prednisone 20 mg 1 tablet by mouth daily 2 tablets by mouth daily for 5 days (start date: ) Medication added: Medication: Prior to Admission Sig: Albuterol-Ipratropium 3-0.5 mg/3 ml neb solution 3 ml by nebulization every 6 hours Removed therapy: Medication: Prior to Admission Sig: Reason for Removal: Omeprazole 20 mg 1 capsule by mouth daily Therapy complete Medication review performed and electronically signed by Arthur Buckley, [employer] Supervisor 14:10 Reviewed by Belem Nazario PharmD 11/29/2016 14:23 Bobby Mohamud si, MD - 11/28/2016 8:30 PM PDT . [facility] HOSPITALIST PROGRESS NOTE Patient: Sherron Patino : 1940: Age: 75 y.o. MedRec: [id number] PCP: Jared Hahn PA-C Admission date: 11/27/2016 Hospital day # : 1 Physician author: Jefferson Doll MD Today: 11/28/2016 SUBJECTIVE: Ms Patino is being seen in follow up of acute bronchitis superimposed on bronchial asthm a exacerbation. She feels a little bit better today although she continues to have laryngea l spasms. She does indicate that the interval between them has definitely increased. The res piratory therapist told me that the patient has not been coughing adequately. But the patie nt's daughter and another family member with at her bedside at the time of my visit. Review of systems: Pertinent positives as noted under subjective. All other systems were r eviewed and are negative Scheduled Meds: albuterol-ipratropium 3 mL Nebulization RT Q4H budesonide 0.5 mg Nebulization RT BID enoxaparin 40 mg Subcutaneous Daily famotidine 20 mg Oral BID guaiFENesin 600 mg Oral BID [START ON 11/29/2016] levoFLOXacin 750 mg Intravenous Every Other Day methylPREDNISolone sodium succinate 40 mg Intravenous 4 times per day senna 8.6 mg Oral BID Continuous Infusions: sodium chloride 0.45% 1,000 mL (11/28/16 1319) PRN Meds:.acetaminophen OR acetaminophen, albuterol, benzonatate, bisacodyl, LORazepam OR LORazepam, ondansetron OR ondansetron, phenol, traZODone VITALS: Temp: 36.8 C (98.2 F), Pulse: 99, Resp: 18, BP: 149/70, SpO2 94 % on room air, continuo us aerosol at flow rate 10L/min Temp Min: 36.3 C (97.3 F) Max: 36.8 C (98.2 F) Weight: 75.5 kg (166 lb 7.2 oz) I/O last 3 completed shifts: In: 2036 [P.O.:500; I.V.:1537] Out: 1200 [Urine:1200] No intake/output data recorded. PHYSICAL EXAM: Gen Merry - elderly woman seen at the bedside in the ED. She was alert, or iented 3, not pale, anicteric, and afebrile. She was cooperative and in no distress, Head - Normocephalic, without obvious abnormality Eyes - PERRL, conjunctiva/corneas clear ENT - mucous membranes moist Neck - supple Lungs - coarse expiratory rhonchi throughout both lung cedeño anteriorly and posteriorly . Improved air entry is noted. No rales Heart - normal rate, regular rhythm, normal S1, S2, no murmurs, rubs, clicks or gallops Abdomen - soft, non-tender, without masses or organomegaly and No ventral hernias Extremities - no peripheral edema, no clubbing or cyanosis Skin - no rashes, no ecchymoses, no petechiae, no wounds Neurologic - Alert and oriented x 3. No focal neurological deficits were appreciated Psychiatric appropriate affect and mood DIAGNOSTIC STUDIES: Available data and images were reviewed personally. Significant results and findings are a ddressed here or in the Assessment and Plan. Recent Results (from the past 24 hour(s)) Basic Metabolic Panel Result Value Ref Range NA 137 136 - 149 mmol/L K 3.9 3.5 - 5.1 mmol/L CL 105 98 - 109 mmol/L CO2 25 24 - 31 mmol/L ANION GAP 7 3 - 16 mmol/L GLUCOSE 203 (H) 70 - 109 mg/dL BUN 12 7 - 18 mg/dL Creatinine, Serum/Plasma 0.77 0.60 - 1.30 mg/dL eGFR if not >60 >=60 mL/min/1.73m2 CALCIUM 8.3 8.3 - 10.5 mg/dL BUN/CREA 15.6 CBC no Differential Result Value Ref Range WBC 15.9 (H) 4.0 - 11.0 K/uL RBC 4.73 3.70 - 5.20 M/uL Hgb 14.3 11.5 - 16.0 g/dL Hct 42.4 34.0 - 47.0 % MCV 89.7 83.0 - 101.0 fL MCH 30.2 28.0 - 35.0 pg MCHC 33.6 32.0 - 36.0 g/dL RDW-CV 13.3 <15.0 % Platelet Count 266 140 - 440 K/uL MPV 9.7 fL Magnesium Result Value Ref Range MG 2.5 1.8 - 2.5 mg/dL Ct Angiogram Pulmonary Result Date: 11/27/2016 CT ANGIOGRAM PULMONARY 11/27/2016 5:24 AM HISTORY: SHORTNESS OF BREATH. COMPARISON: None. NE OTOCOL: Thin section axial images of the chest were obtained after uneventful administration of 60 mL Omnipaque 350. Coronal and sagittal reformations were acquired. FINDINGS: Neck bas e is normal. Heart size is at the upper limits of normal. There is moderate atherosclerosis of the aorta. The pulmonary arteries are unremarkable. SVC is normal. No enlarged lymph node s are seen in the mediastinum, adam, or axillae. Trachea and esophagus demonstrate no acute findings. Mild atelectasis are in the left lung lingula and bilateral lower lobes. The upper abdomen demonstrates no acute findings. Chest wall structures are normal. [employer] i s partially imaged in the cervical spine. Moderate right curvature of the thoracic spine is seen. There is mild spondylosis of the thoracic spine. IMPRESSION - No evidence for pulmonar y embolism. A preliminary report was sent by [employer] with no significant discrepancy . Dictated and Signed by: Joseph Powell MD Electronically signed: 11/27/2016 1:15 PM Current Facility-Administered Medications: acetaminophen 650 mg Oral Q4H PRN Or acetaminophen 650 mg Oral Q4H PRN albuterol 2.5 mg Nebulization RT Q2H PRN albuterol-ipratropium 3 mL Nebulization RT Q4H benzonatate 200 mg Oral TID PRN bisacodyl 10 mg Rectal Daily PRN budesonide 0.5 mg Nebulization RT BID enoxaparin 40 mg Subcutaneous Daily famotidine 20 mg Oral BID guaiFENesin 600 mg Oral BID [START ON 11/29/2016] levoFLOXacin 750 mg Intravenous Every Other Day LORazepam 0.5 mg Intravenous Nightly PRN Or LORazepam 0.5 mg Oral Nightly PRN methylPREDNISolone sodium succinate 40 mg Intravenous 4 times per day ondansetron 4 mg Oral Q6H PRN Or ondansetron 4 mg Intravenous Q6H PRN phenol 5 spray Mouth/Throat Q2H PRN senna 8.6 mg Oral BID sodium chloride 0.45% Intravenous Continuous traZODone 25 mg Oral Nightly PRN ASSESSMENT and PLAN: 1. Acute exacerbation of bronchial asthma: Continue scheduled neb treatments, IV steroids, IV antibiotic therapy. Follow clinically for improvement 2. Acute bronchitis: Continue Iv Levaquin every other day and symptomatic therapy with anti tussives. Follow clinically for improvement 3. Recurrent laryngeal spasms: Continue supportive therapy as needed. She may need to foll ow up with ENT after discharge if indicated 4. GERD: continue omeprazole 20 mg daily 5. Leukocytosis: Her WBC is elevated. Follow the trend over the next couple of days 6. JOSEF: Her renal function is back to baseline since she most likely does not have CKD. S he was most likely dehydrated secondary to her illness. Continue to monitor renal function and avoid nephrotoxic drugs. 7. VTE prophylaxis: Continue Lovenox 40 mg subcu daily and SCDs while in bed Total time of approximately 30 minutes was spent with the patient and family, of which more than 50% was spent counseling and/or coordination the patient's care as outlined above. Jefferson Doll 11/28/2016 20:30 [facility] Kanchan Holley P harmD - 11/27/2016 4:50 PM PDT RENAL DOSE ADJUSTMENT PER PHARMACY PROTOCOL: Subjective/Objective: Sherron Patino is a 75 y.o. year old female admitted on 11/27/2016 3:12 for asthm a exacerbation/bronchitis and is receiving LEVOFLOXACIN for acute bronchitis. BP 166/81 | Pulse 90 | Temp 36.9 C (98.4 F) (Oral) | Resp 18 | Ht 1.499 m (4' 11.02 ") | Wt 75.5 kg (166 lb 7.2 oz) | SpO2 93% | BMI 33.60 kg/m Intake/Output Summary (Last 24 hours) at 11/27/16 1650 Last data filed at 11/27/16 1614 Gross per 24 hour Intake 385 ml Output 0 ml Net 385 ml Recent Labs Lab 11/27/16 0433 CREA 1.01 CrCl cannot be calculated (Unknown ideal weight.). [place] weight= 45.5 kg (patient is 65% over ideal body weight) Adjusted body weight = 57.5 kg -- will use for renal function dosing Date 11/27 Day of therapy 1 Serum Creatinine 1.01 CrCl (mL/min) 43 Dose - current 750 mg q24hr Dose - new 750 mg q48hr Assessment/Plan: 1. For creatinine clearance 30-50 mL/min, decrease dose of LEVOFLOXACIN from 750 mg q24h to 750 mg q48h. 2. Pharmacy will continue to follow and adjust dose as appropriate to clinical condition an d creatinine clearance changes RENAL DOSE ADJUSTMENT PER PHARMACY PROTOCOL Electronically signed by: Kanchan Camacho PharmD 11/27/2016 16:50 Eileen Mohamud i, MD - 11/27/2016 8:38 AM PDT [facility] HISTORY AND PHYSICAL Pt. Name/Age/: Sherron Patino 75 y.o. 1940 Date of admission: 11/27/2016 Admitting Physician: Jefferson Doll MD Primary Care Provider: Jared Hahn PA-C CHIEF COMPLAINT: Fever, difficulty breathing, productive cough for one week HISTORY OF PRESENT ILLNESS: This is a 75 y.o. female with a history of bronchial asthma since the early , seasonal a llergies, and GERD who presented to the ED with the above symptoms. The history was obtaine d from the patient herself and she is a good historian. Ms. Patino says that she was in her usual state of health until about a week ago when she started experiencing symptoms sugg estive of seasonal allergies. She started to sneeze frequently, cough and have a upper resp iratory congestion. She thought it was an allergy attack so she started taking Claritin. O n Tuesday which was the day after her symptoms started, she started having a fever as well so on Tuesday which was 4 days ago she went and saw her primary care provider who prescribed h er 40 mg of prednisone for 5 days and a Z-Jignesh. She was advised to come for follow-up yester day if she did not feel better. On which was 2 days ago she started to feel diffic ulty breathing and has had a having episodes of her throat closing up. She says she will be gasping for air. She returned to see her primary care provider yesterday because she kept o n having episodes of difficulty breathing and he asked her to go to the emergency room. She was seen in the ER in [place] and after some blood work and a chest x-ray she was told th at since she had medication at home, she should keep on taking them. SO she was discharged h ome from the ED. When she got home she had another episode OF laryngeal spasm so her daught er called EMT and she was taken back to the ED again at the [place]. Again she was dischar ged after a few hours of observation. The patient says that she has not felt any better and she continues to have intermittent episodes of difficulty breathing during which it seems l pawel her throat is swollen and scratchy. She has also been experiencing odynophagia and dysph agia. She asked her daughter to bring her to this emergency room instead. She has been eval uated for PE and pneumonia and both were ruled out so she most likely has acute bronchitis a nd possibly laryngitis. She is being admitted for further evaluation and management PAST MEDICAL and SURGICAL HISTORY: Past Medical History: Diagnosis Date Abdominal hernia Allergic rhinitis Alopecia Arthritis Left knee Asthma 2004 Carpal tunnel syndrome Left Cervicalgia Chronic right shoulder pain COPD (chronic obstructive pulmonary disease) ([facility]) patient unware of diagnosis Degenerative joint disease of sacroiliac joint Dermatophytosis of left foot Enthesopathy of hip Right Esophageal reflux Lumbar scoliosis Obesity Osteoarthritis Vitamin D deficiency Past Surgical History: Procedure Laterality Date BLADDER REPAIR BLADDER SUSPENSION BUNIONECTOMY CATARACT REMOVAL CHOLECYSTECTOMY KNEE JOINT REPLACEMENT TKA left MENISCECTOMY X 2 NASAL SEPTUM SURGERY NASAL/SINUS ENDOSCOPY SHOULDER SURGERY bilateral WRIST SURGERY FAMILY HISTORY: family history includes * in her father and mother; Cirrhosis in her father; Diabetes, IDDM in her brother. SOCIAL HISTORY: reports that she quit smoking about 42 years ago. She has a 0.02 pack-year smoking history . She does not have any smokeless tobacco history on file. She reports that she does not dri nk alcohol or use drugs. REVIEW OF SYSTEMS: Pertinent positives as noted in HPI. All other systems were reviewed and are negative HOME MEDICATIONS: Previous Medications ALBUTEROL (PROVENTIL HFA) 90 MCG/PUFF INHALER Inhale 2 puffs into the lungs every 4 sanjuanita rs as needed for Wheezing or Shortness of Breath. AZITHROMYCIN (ZITHROMAX) 250 MG TABLET Take 250 mg by mouth Daily. FLUTICASONE (FLONASE) 50 MCG/NASAL SPRAY 1 spray daily LORATADINE (CLARITIN) 10 MG TABLET Take 10 mg by mouth as needed. MOMETASONE (ASMANEX 120 METERED DOSES) 220 MCG/PUFF INHALER Inhale 2 puffs into the johnnie gs Daily. MONTELUKAST (SINGULAIR) 10 MG TABLET Take 10 mg by mouth Daily. OMEPRAZOLE (PRILOSEC) 20 MG CAPSULE Take 20 mg by mouth Daily. PREDNISONE (DELTASONE) 20 MG TABLET Take 20 mg by mouth Daily. ALLERGIES: Allergies Allergen Reactions Hydrocodone Ibuprofen Meclizine Hcl Oxycodone Propoxyphene VITAL SIGNS: Temp: 37.1 C (98.8 F), Pulse: 81, Resp: 20, BP: 157/87, SpO2 93 % on room air at flow r ate 2L/min Temp Min: 37.1 C (98.8 F) Max: 37.1 C (98.8 F) PHYSICAL EXAMINATION: Gen Merry - elderly woman seen at the bedside in the ED. She was alert, or iented 3, not pale, anicteric, and afebrile. She was cooperative and in no distress, Head - Normocephalic, without obvious abnormality Eyes - PERRL, conjunctiva/corneas clear ENT - mucous membranes moist Neck - supple Lungs - coarse expiratory rhonchi and decreased breath sounds throughout both lung field s anteriorly and posteriorly. Transmitted sounds were also noted Heart - normal rate, regular rhythm, normal S1, S2, no murmurs, rubs, clicks or gallops Abdomen - soft, non-tender, without masses or organomegaly and No ventral hernias Extremities - no peripheral edema, no clubbing or cyanosis Skin - no rashes, no ecchymoses, no petechiae, no wounds Neurologic - Alert and oriented x 3. No focal neurological deficits were appreciated Psychiatric appropriate affect and mood DIAGNOSTIC STUDIES: Available data and images were reviewed personally. Significant results and findings are a ddressed here or in the Assessment and Plan. Recent Results (from the past 24 hour(s)) Extra Green Top Tube Result Value Ref Range Extra Green Top Tube Done Extra Blue Top Tube Result Value Ref Range Extra Blue Top Tube Done Extra Gold Top Tube Result Value Ref Range EGDT Done Extra Lavender Top Tube Result Value Ref Range Extra Lavender Top Tube Done Basic Metabolic Panel Result Value Ref Range NA 141 136 - 149 mmol/L K 3.8 3.5 - 5.1 mmol/L CL 105 98 - 109 mmol/L CO2 26 24 - 31 mmol/L ANION GAP 10 3 - 16 mmol/L GLUCOSE 122 (H) 70 - 109 mg/dL BUN 13 7 - 18 mg/dL Creatinine, Serum/Plasma 1.01 0.60 - 1.30 mg/dL eGFR if not 53 (L) >=60 mL/min/1.73m2 CALCIUM 8.5 8.3 - 10.5 mg/dL BUN/CREA 12.9 C-Reactive Protein Result Value Ref Range CRP 4.38 <8.00 mg/L CBC with Differential Result Value Ref Range WBC 14.1 (H) 4.0 - 11.0 K/uL RBC 5.26 (H) 3.70 - 5.20 M/uL Hgb 15.9 11.5 - 16.0 g/dL Hct 47.6 (H) 34.0 - 47.0 % MCV 90.4 83.0 - 101.0 fL MCH 30.3 28.0 - 35.0 pg MCHC 33.5 32.0 - 36.0 g/dL RDW-CV 14.0 <15.0 % Platelet Count 279 140 - 440 K/uL MPV 10.0 fL % Neutrophils 78.9 45.0 - 82.0 % % Lymphocytes 14.9 (L) 20.0 - 45.0 % % Monocytes 4.5 4.0 - 12.0 % % Eosinophils 0.6 0.0 - 5.0 % % Basophils 1.1 (H) 0.0 - 1.0 % Absolute Neutrophils 11.20 (H) 1.80 - 8.50 K/uL Absolute Lymphocytes 2.10 0.60 - 3.20 K/uL Absolute Monocytes 0.60 0.00 - 1.00 K/uL Absolute Eosinophils 0.10 0.00 - 0.40 K/uL Absolute Basophils 0.20 (H) 0.00 - 0.10 K/uL Ct Angiogram Pulmonary Result Date: 11/27/2016 CT ANGIOGRAM PULMONARY CLINICAL INFORMATION: Shortness of breath and a cough. COMPARISON: N o comparisons PROCEDURE: Thin-section images of the entire chest after the administration of 60 ml Omnipaque 350intravenous contrast. 3D MIP thin slab images and 2D multiplanar reconst ructions performed. At least one of the following CT dose optimization techniques were used: Automated exposure control; Adjustment of mA and/or kV according to patient size; Use of it erative reconstruction technique. FINDINGS: See below. IMPRESSION: Study negative for pulmon mike embolism or other acute process in the chest. Signed by: Juan Carlos Jordan Report sent: 2016 6:01:02 AM ASSESSMENT and PLAN: 1. Acute exacerbation of bronchial asthma: This is most likely the case that the patient bishop s a very remote history of smoking and she has had asthma for several years now. She will b e admitted and started on scheduled neb treatments, IV steroids, IV antibiotic therapy, kulwinder ins on oxygen therapy if indicated by her oxygen saturation. 2. Acute bronchitis: started on Iv antibiotic therapy nd nebs as noted above. We will also give symptomatic therapy with antitussives. Follow clinically for improvement 3. Recurrent laryngeal spasms: This is most likely what is happening based on her symptoms. We'll continue to monitor her closely and hopefully treating her asthma and bronchitis gamaliel l help resolve this problem. The possible differential diagnosis which PVFM 4. GERD: The patient has a history of GERD and takes omeprazole 20 mg daily for this. 5. Leukocytosis: This is most likely due to the infection as noted above. We'll follow the trend over the next couple of days 6. CKD stage III: Her GFR is in the 50s and I don't have a baseline for her and is no evide nce that she is dehydrated. She might have mild superimposed JOSEF so I will place her on eliel e fluids and see what happens with her creatinine over the next couple of days. Further recommendations regarding Ms. Patino will depend on her response to current ther apies, on the results of any further testing, and on further recommendations from the [facility] physicians involved in her care if any DVT Prophylaxis low molecular weight heparin and SCD's while in bed Code Status Full Code. CMS Documentation I expect this patient will be hospitalized for greater than 2-midnights and expect the post -hospital plan to be discharge to home or to an adult foster home. Total of 45 minutes were required to complete the admission process. Reviewed and summariz ed past medical records. Medical Decisionmaker: The patient herself Electronically signed by: Jefferson Doll MD 11/27/2016 8:38 [facility] Portions of this chart may have been created with [employer] voice recognition software. Occasi onal wrong-word or sound-alike substitutions may have occurred due to the inherent martinez itations of voice recognition software. Please read the chart carefully and recognize, using context, where these substitutions have occurred documented in this encounter Plan of Treatment Not on filedocumented as of this encounter Procedures + +--------+ + + + | Procedure Name | Priori | Date/Time | Associated Diagnosis | Comments | | | ty | | | | + +--------+ + + + | CBC WITH | Routin | 11/30/2016 | | Results for this | | DIFFERENTIAL | e | 4:40 AM | | procedure are in the | | | | PDT | | results section. | + +--------+ + + + | BASIC METABOLIC | Routin | 11/30/2016 | | Results for this | | PANEL | e | 4:40 AM | | procedure are in the | | | | PDT | | results section. | + +--------+ + + + | CBC WITH | Routin | 11/29/2016 | | Results for this | | DIFFERENTIAL | e | 11:27 AM | | procedure are in the | | | | PDT | | results section. | + +--------+ + + + | PHOSPHORUS | Routin | 11/29/2016 | | Results for this | | | e | 11:27 AM | | procedure are in the | | | | PDT | | results section. | + +--------+ + + + | MAGNESIUM | Routin | 11/29/2016 | | Results for this | | | e | 11:27 AM | | procedure are in the | | | | PDT | | results section. | + +--------+ + + + | BASIC METABOLIC | Routin | 11/29/2016 | | Results for this | | PANEL | e | 11:27 AM | | procedure are in the | | | | PDT | | results section. | + +--------+ + + + | CBC NO DIFFERENTIAL | Routin | 11/28/2016 | | Results for this | | | e | 6:26 AM | | procedure are in the | | | | PDT | | results section. | + +--------+ + + + | MAGNESIUM | Routin | 11/28/2016 | | Results for this | | | e | 6:26 AM | | procedure are in the | | | | PDT | | results section. | + +--------+ + + + | BASIC METABOLIC | Routin | 11/28/2016 | | Results for this | | PANEL | e | 6:26 AM | | procedure are in the | | | | PDT | | results section. | + +--------+ + + + | CULTURE, | Routin | 11/27/2016 | | Results for this | | RESPIRATORY, LOWER, | e | 10:54 AM | | procedure are in the | | SMEAR | | PDT | | results section. | + +--------+ + + + | CULTURE, BLOOD | STAT | 11/27/2016 | | Results for this | | | | 6:38 AM | | procedure are in the | | | | PDT | | results section. | + +--------+ + + + | CULTURE, BLOOD | STAT | 11/27/2016 | | Results for this | | | | 6:38 AM | | procedure are in the | | | | PDT | | results section. | + +--------+ + + + | CT ANGIOGRAM | STAT | 11/27/2016 | | Results for this | | PULMONARY | | 5:25 AM | | procedure are in the | | | | PDT | | results section. | + +--------+ + + + | PROCALCITONIN, SERUM | Routin | 11/27/2016 | | Results for this | | | e | 4:33 AM | | procedure are in the | | | | PDT | | results section. | + +--------+ + + + | EXTRA LAVENDER TOP | Routin | 11/27/2016 | | Results for this | | TUBE | e | 4:33 AM | | procedure are in the | | | | PDT | | results section. | + +--------+ + + + | EXTRA GREEN TOP TUBE | Routin | 11/27/2016 | | Results for this | | | e | 4:33 AM | | procedure are in the | | | | PDT | | results section. | + +--------+ + + + | EXTRA GOLD TOP TUBE | Routin | 11/27/2016 | | Results for this | | | e | 4:33 AM | | procedure are in the | | | | PDT | | results section. | + +--------+ + + + | EXTRA BLUE TOP TUBE | Routin | 11/27/2016 | | Results for this | | | e | 4:33 AM | | procedure are in the | | | | PDT | | results section. | + +--------+ + + + | CBC WITH | Add-On | 11/27/2016 | | Results for this | | DIFFERENTIAL | | 4:33 AM | | procedure are in the | | | | PDT | | results section. | + +--------+ + + + | C-REACTIVE PROTEIN | Add-On | 11/27/2016 | | Results for this | | | | 4:33 AM | | procedure are in the | | | | PDT | | results section. | + +--------+ + + + | BASIC METABOLIC | Add-On | 11/27/2016 | | Results for this | | PANEL | | 4:33 AM | | procedure are in the | | | | PDT | | results section. | + +--------+ + + + | LABS - EXTERNAL SCAN | | 11/26/2016 | | Results for this | | | | 12:00 AM | | procedure are in the | | | | PDT | | results section. | + +--------+ + + + documented in this encounter Results Basic Metabolic Panel (11/30/2016 4:40 AM PDT) + + + + + + | Component | Value | Ref Range | Performed | Pathologist | | | | | At | Signature | + + + + + + | Na | 137 | 136 - 149 | [facility] | | | | | mmol/L | [facility] | | | | | | [facility] | | | | [facility] - | | | | | | LAB[facility]ATORY | | + + + + + + | K | 3.8 | 3.5 - 5.1 | [facility] | | | | | mmol/L | [facility] | | | | | | [facility] | | | | | | [facility] - | | | | | | LABORATORY | | + + + + + + | Cl | 106 | 98 - 109 mmol/L | [facility] | | | | | | [facility] | | | | | | [facility] | | | | | | [facility] - | | | | | | LABORATORY | | + + + + + + | CO2 | 25 | 24 - 31 mmol/L | [facility] | | | | | | [facility] | | | | | | [facility] | | | | | | [facility] - | | | | | | LAB[facility]ATORY | | + + + + + + | Anion Gap | 6 | 3 - 16 mmol/L | [facility] | | | | | | [facility] | | | | | | [facility] | | | | | | [facility] - | | | | | | LAB[facility]ATORY | | + + + + + + | Glucose | 183 (H) | 70 - 109 mg/dL | [facility] | | | | | | [facility] | | | | | | [facility] | | | | | | [facility] - | | | | | | LABORATORY | | + + + + + + | BUN | 14 | 7 - 18 mg/dL | [facility] | | | | | | [facility] | | | | | | [facility] | | | | | | [facility] - | | | | | | LABORATORY | | + + + + + + | Creatinine | 0.90 | 0.60 - 1.30 | [facility] | | | | | mg/dL | [facility] | | | | | | MEDICAL | | | | | | CENTER - | | | | | | LABORATORY | | + + + + + + | eGFR if not | >60Comment: GLOMERULAR | >=60 | [facility] | | | | FILTRATION | mL/min/1.73m2 | [facility] | | | MALTESE | RATE,ESTIMATED | | MEDICAL | | | | mL/min/1.94g1Fthb than | | CENTER - | | | | 60 Chronic kidney | | LABORATORY | | | | disease,if found over a | | | | | | 3-month period.Less than | | | | | | 15 Kidney failureFor | | | | | | | | | | | | Americans,multiply the | | | | | | calculated GFR by 1.21. | | | | | | | | | | + + + + + + | Calcium | 8.2 (L) | 8.3 - 10.5 | [facility] | | | | | mg/dL | [facility] | | | | | | MEDICAL | | | | | | CENTER - | | | | | | LABORATORY | | + + + + + + | BUN/Creatin | 15.6 | | [facility] | | | ine Ratio | | | [facility] | | | | | | [facility] | | | | | | C[facility] - | | | | | | LABORATORY | | + + + + + + + + | Specimen | + + | Blood | + + + + + + + | Performing | Address | City/State/Zipcode | Phone Number | | Organization | | | | + + + + + | [facility] | [address] | [place] | [phone] | | [facility] | | [address] | | | - LABORATORY | | | | + + + + + CBC with Differential (11/30/2016 4:40 AM PDT) + + + + + + | Component | Value | Ref Range | Performed | Pathologist | | | | | At | Signature | + + + + + + | WBC | 11.6 (H) | 4.0 - 11.0 K/uL | [facility] | | | | | | [facility] | | | | | | MEDICAL | | | | | | CENTER - | | | | | | LABORATORY | | + + + + + + | RBC | 4.87 | 3.70 - 5.20 | [facility] | | | | | M/uL | [facility] | | | | | | MEDICAL | | | | | | CENTER - | | | | | | LABORATORY | | + + + + + + | Hemoglobin | 14.6 | 11.5 - 16.0 | [facility] | | | | | g/dL | [facility] | | | | | | MEDICAL | | | | | | CENTER - | | | | | | LABORATORY | | + + + + + + | Hematocrit | 43.6 | 34.0 - 47.0 % | [facility] | | | | | | [facility] | | | | | | [facility] | | | | | | CENTER - | | | | | | LABORATORY | | + + + + + + | MCV | 89.4 | 83.0 - 101.0 fL | [facility] | | | | | | [facility] | | | | | | [facility] | | | | | | CENTER - | | | | | | LABORATORY | | + + + + + + | MCH | 30.0 | 28.0 - 35.0 pg | [facility] | | | | | | [facility] | | | | | | [facility]ICAL | | | | | | CENTER - | | | | | | LABORATORY | | + + + + + + | MCHC | 33.6 | 32.0 - 36.0 | [facility] | | | | | g/dL | [facility] | | | | | | MEDICAL | | | | | | CENTER - | | | | | | LABORATORY | | + + + + + + | RDW-CV | 13.6 | <15.0 % | [facility] | | | | | | [facility] | | | | | | [facility]ICAL | | | | | | CENTER - | | | | | | LABORATORY | | + + + + + + | Platelet | 256 | 140 - 440 K/uL | [facility] | | | Count | | | [facility] | | | | | | MEDICAL | | | | | | CENTER - | | | | | | LABORATORY | | + + + + + + | MPV | 9.2 | fL | [facility] | | | | | | [facility] | | | | | | [facility]ICAL | | | | | | CENTER - | | | | | | LABORATORY | | + + + + + + | % | 89.8 (H) | 45.0 - 82.0 % | [facility] | | | Neutrophils | | | [facility] | | | | | | MEDICAL | | | | | | CENTER - | | | | | | LABORATORY | | + + + + + + | % | 7.5 (L) | 20.0 - 45.0 % | [facility] | | | Lymphocytes | | | [facility] | | | | | | MEDICAL | | | | | | CENTER - | | | | | | LABORATORY | | + + + + + + | % Monocytes | 2.6 (L) | 4.0 - 12.0 % | [facility] | | | | | | [facility] | | | | | | MEDICAL | | | | | | CENTER - | | | | | | LABORATORY | | + + + + + + | % | 0.0 | 0.0 - 5.0 % | [facility] | | | Eosinophils | | | [facility] | | | | | | MEDICAL | | | | | | CENTER - | | | | | | LABORATORY | | + + + + + + | % Basophils | 0.1 | 0.0 - 1.0 % | [facility] | | | | | | [facility] | | | | | | MEDICAL | | | | | | CENTER - | | | | | | LABORATORY | | + + + + + + | Absolute | 10.40 (H) | 1.80 - 8.50 | [facility] | | | Neutrophils | | K/uL | [facility] | | | | | | MEDICAL | | | | | | CENTER - | | | | | | LABORATORY | | + + + + + + | Absolute | 0.90 | 0.60 - 3.20 | [facility] | | | Lymphocytes | | K/uL | [facility] | | | | | | MEDICAL | | | | | | CENTER - | | | | | | LABORATORY | | + + + + + + | Absolute | 0.30 | 0.00 - 1.00 | [facility] | | | Monocytes | | K/uL | [facility] | | | | | | MEDICAL | | | | | | CENTER - | | | | | | LABORATORY | | + + + + + + | Absolute | 0.00 | 0.00 - 0.40 | [facility] | | | Eosinophils | | K/uL | [facility] | | | | | | MEDICAL | | | | | | CENTER - | | | | | | LABORATORY | | + + + + + + | Absolute | 0.00 | 0.00 - 0.10 | [facility] | | | Basophils | | K/uL | [facility] | | | | | | MEDICAL | | | | | | CENTER - | | | | | | LABORATORY | | + + + + + + + + | Specimen | + + | Blood | + + + + + + + | Performing | Address | City/State/Zipcode | Phone Number | | Organization | | | | + + + + + | [facility] | [address] | [place] | [phone] | | [facility] | | [address] | | | - LABORATORY | | | | + + + + + Phosphorus (11/29/2016 11:27 AM PDT) + +-------+ + + + | Component | Value | Ref Range | Performed | Pathologist | | | | | At | Signature | + +-------+ + + + | Phosphorus | 2.5 | 2.5 - 4.6 mg/dL | [facility] | | | | | | [facility] | | | | | | [facility] | | | | | | CENTER - | | | | | | LABORATORY | | + +-------+ + + + + + | Specimen | + + | Blood | + + + + + + + | Performing | Address | City/State/Zipcode | Phone Number | | Organization | | | | + + + + + | [facility] | [address] | [place] | [phone] | | [facility] | | [address] | | | - LABORATORY | | | | + + + + + Magnesium (11/29/2016 11:27 AM PDT) + +---------+ + + + | Component | Value | Ref Range | Performed | Pathologist | | | | | At | Signature | + +---------+ + + + | Magnesium | 2.6 (H) | 1.8 - 2.5 mg/dL | [facility] | | | | | | [facility] | | | | | | [facility]ICAL | | | | | | CENTER - | | | | | | LABORATORY | | + +---------+ + + + + + | Specimen | + + | Blood | + + + + + + + | Performing | Address | City/State/Zipcode | Phone Number | | Organization | | | | + + + + + | [facility] | [address] | [place] | [phone] | | [facility] | | [address] | | | - LABORATORY | | | | + + + + + Basic Metabolic Panel (11/29/2016 11:27 AM PDT) + + + + + + | Component | Value | Ref Range | Performed | Pathologist | | | | | At | Signature | + + + + + + | Na | 139 | 136 - 149 | [facility] | | | | | mmol/L | [facility] | | | | | | MEDICAL | | | | | | CENTER - | | | | | | LABORATORY | | + + + + + + | K | 4.0 | 3.5 - 5.1 | [facility] | | | | | mmol/L | [facility] | | | | | | MEDICAL | | | | | | CENTER - | | | | | | LABORATORY | | + + + + + + | Cl | 109 | 98 - 109 mmol/L | [facility] | | | | | | [facility] | | | | | | MEDICAL | | | | | | CENTER - | | | | | | LABORATORY | | + + + + + + | CO2 | 22 (L) | 24 - 31 mmol/L | [facility] | | | | | | [facility] | | | | | | [facility]ICAL | | | | | | CENTER - | | | | | | LABORATORY | | + + + + + + | Anion Gap | 8 | 3 - 16 mmol/L | [facility] | | | | | | [facility] | | | | | | [facility]ICAL | | | | | | CENTER - | | | | | | LABORATORY | | + + + + + + | Glucose | 131 (H) | 70 - 109 mg/dL | [facility] | | | | | | [facility] | | | | | | [facility] | | | | | | CENTER - | | | | | | LABORATORY | | + + + + + + | BUN | 13 | 7 - 18 mg/dL | [facility] | | | | | [facility] | | | | | | [facility] | | | | | | CENTER - | | | | | | LABORATORY | | + + + + + + | Creatinine | 0.86 | 0.60 - 1.30 | [facility] | | | | | mg/dL | [facility] | | | | | | MEDICAL | | | | | | CENTER - | | | | | | LABORATORY | | + + + + + + | eGFR if not | >60Comment: GLOMERULAR | >=60 | [facility] | | | | FILTRATION | mL/min/1.73m2 | [facility] | | | MALTESE | RATE,ESTIMATED | | MEDICAL | | | | mL/min/1.55f7Zidr than | | CENTER - | | | | 60 Chronic kidney | | LABORATORY | | | | disease,if found over a | | | | | | 3-month period.Less than | | | | | | 15 Kidney failureFor | | | | | | | | | | | | Americans,multiply the | | | | | | calculated GFR by 1.21. | | | | | | | | | | + + + + + + | Calcium | 8.1 (L) | 8.3 - 10.5 | [facility] | | | | | mg/dL | [facility] | | | | | | MEDICAL | | | | | | CENTER - | | | | | | LABORATORY | | + + + + + + | BUN/Creatin | 15.1 | | [facility] | | | ine Ratio | | | [facility] | | | | | | MEDICAL | | | | | | CENTER - | | | | | | LABORATORY | | + + + + + + + + | Specimen | + + | Blood | + + + + + + + | Performing | Address | City/State/Zipcode | Phone Number | | Organization | | | | + + + + + | [facility] | [address] | [place] | [phone] | | [facility] | | [address] | | | - LABORATORY | | | | + + + + + CBC with Differential (11/29/2016 11:27 AM PDT) + + + + + + | Component | Value | Ref Range | Performed | Pathologist | | | | | At | Signature | + + + + + + | WBC | 18.3 (H) | 4.0 - 11.0 K/uL | [facility] | | | | | | [facility] | | | | | | [facility] | | | | | | C[facility] - | | | | | | LABORATORY | | + + + + + + | RBC | 4.88 | 3.70 - 5.20 | [facility] | | | | | M/uL | [facility] | | | | | | MEDICAL | | | | | | CENTER - | | | | | | LABORATORY | | + + + + + + | Hemoglobin | 14.5 | 11.5 - 16.0 | [facility] | | | | | g/dL | [facility] | | | | | | [facility] | | | | | | C[facility] - | | | | | | LABORATORY | | + + + + + + | Hematocrit | 43.9 | 34.0 - 47.0 % | [facility] | | | | | | [facility] | | | | | | MEDICAL | | | | | | CENTER - | | | | | | LABORATORY | | + + + + + + | MCV | 89.8 | 83.0 - 101.0 fL | [facility] | | | | | | [facility] | | | | | | MEDICAL | | | | | | CENTER - | | | | | | LABORATORY | | + + + + + + | MCH | 29.8 | 28.0 - 35.0 pg | [facility] | | | | | | [facility] | | | | | | MEDICAL | | | | | | CENTER - | | | | | | LABORATORY | | + + + + + + | MCHC | 33.2 | 32.0 - 36.0 | [facility] | | | | | g/dL | [facility] | | | | | | MEDICAL | | | | | | CENTER - | | | | | | LABORATORY | | + + + + + + | RDW-CV | 13.5 | <15.0 % | [facility] | | | | | | [facility] | | | | | | MEDICAL | | | | | | CENTER - | | | | | | LABORATORY | | + + + + + + | Platelet | 250 | 140 - 440 K/uL | [facility] | | | Count | | | [facility] | | | | | | MEDICAL | | | | | | CENTER - | | | | | | LABORATORY | | + + + + + + | MPV | 9.3 | fL | [facility] | | | | | | [facility] | | | | | | MEDICAL | | | | | | CENTER - | | | | | | LABORATORY | | + + + + + + | % | 92.1 (H) | 45.0 - 82.0 % | [facility] | | | Neutrophils | | | [facility] | | | | | | MEDICAL | | | | | | CENTER - | | | | | | LABORATORY | | + + + + + + | % | 4.7 (L) | 20.0 - 45.0 % | [facility] | | | Lymphocytes | | | [facility] | | | | | | MEDICAL | | | | | | CENTER - | | | | | | LABORATORY | | + + + + + + | % Monocytes | 3.0 (L) | 4.0 - 12.0 % | [facility] | | | | | | [facility] | | | | | | MEDICAL | | | | | | CENTER - | | | | | | LABORATORY | | + + + + + + | % | 0.0 | 0.0 - 5.0 % | [facility] | | | Eosinophils | | | [facility] | | | | | | MEDICAL | | | | | | CENTER - | | | | | | LABORATORY | | + + + + + + | % Basophils | 0.2 | 0.0 - 1.0 % | [facility] | | | | | | [facility] | | | | | | MEDICAL | | | | | | CENTER - | | | | | | LABORATORY | | + + + + + + | Absolute | 16.80 (H) | 1.80 - 8.50 | [facility] | | | Neutrophils | | K/uL | [facility] | | | | | | MEDICAL | | | | | | CENTER - | | | | | | LABORATORY | | + + + + + + | Absolute | 0.90 | 0.60 - 3.20 | [facility] | | | Lymphocytes | | K/uL | [facility] | | | | | | MEDICAL | | | | | | CENTER - | | | | | | LABORATORY | | + + + + + + | Absolute | 0.50 | 0.00 - 1.00 | [facility] | | | Monocytes | | K/uL | [facility] | | | | | | MEDICAL | | | | | | CENTER - | | | | | | LABORATORY | | + + + + + + | Absolute | 0.00 | 0.00 - 0.40 | [facility] | | | Eosinophils | | K/uL | [facility] | | | | | | MEDICAL | | | | | | CENTER - | | | | | | LABORATORY | | + + + + + + | Absolute | 0.00 | 0.00 - 0.10 | [facility] | | | Basophils | | K/uL | [facility] | | | | | | [facility]ICAL | | | | | | CENTER - | | | | | | LABORATORY | | + + + + + + + + | Specimen | + + | Blood | + + + + + + + | Performing | Address | City/State/Zipcode | Phone Number | | Organization | | | | + + + + + | [facility] | [address] | [place] | [phone] | | [facility] | | [address] | | | - LABORATORY | | | | + + + + + Magnesium (11/28/2016 6:26 AM PDT) + +-------+ + + + | Component | Value | Ref Range | Performed | Pathologist | | | | | At | Signature | + +-------+ + + + | Magnesium | 2.5 | 1.8 - 2.5 mg/dL | [facility] | | | | | | [facility] | | | [facility] | [facility] | | | | | | [facility] - | | | | | | LABORATORY | | + +-------+ + + + + + | Specimen | + + | Blood | + + + + + + + | Performing | Address | City/State/[facility] | Phone Number | | Organization | | | | + + + + + | [facility] | [address] | [place] | [phone] | | [facility] | | [address] | | | - LABORATORY | | | | + + + + + CBC no Differential (11/28/2016 6:26 AM PDT) + + + + + + | Component | Value | Ref Range | Performed | Pathologist | | | | | At | Signature | + + + + + + | WBC | 15.9 (H) | 4.0 - 11.0 K/uL | [facility] | | | | | | [facility] | | | | | | [facility] | | | | | | [facility] - | | | | | | LABORATORY | | + + + + + + | RBC | 4.73 | 3.70 - 5.20 | [facility] | | | | | M/uL | [facility] | | | | | | MEDICAL | | | | | | CENTER - | | | | | | LABORATORY | | + + + + + + | Hemoglobin | 14.3 | 11.5 - 16.0 | [facility] | | | | | g/dL | [facility] | | | | | | [facility] | | | | | | CENTER - | | | | | | LABORATORY | | + + + + + + | Hematocrit | 42.4 | 34.0 - 47.0 % | [facility] | | | | | | [facility] | | | | | | [facility] | | | | | | CENTER - | | | | | | LABORATORY | | + + + + + + | MCV | 89.7 | 83.0 - 101.0 fL | [facility] | | | | | | [facility] | | | | | | [facility] | | | | | | C[facility] - | | | | | | LABORATORY | | + + + + + + | MCH | 30.2 | 28.0 - 35.0 pg | [facility] | | | | | | [facility] | | | | | | [facility] | | | | | | C[facility] - | | | | | | LABORATORY | | + + + + + + | MCHC | 33.6 | 32.0 - 36.0 | [facility] | | | | | g/dL | [facility] | | | | | | MEDICAL | | | | | | CENTER - | | | | | | LABORATORY | | + + + + + + | RDW-CV | 13.3 | <15.0 % | [facility] | | | | | | [facility] | | | | | | [facility] | | | | | | CENTER - | | | | | | LABORATORY | | + + + + + + | Platelet | 266 | 140 - 440 K/uL | [facility] | | | Count | | | [facility] | | | | | | [facility] | | | | | | CENTER - | | | | | | LABORATORY | | + + + + + + | MPV | 9.7 | fL | [facility] | | | | | | [facility] | | | | | | [facility] | | | | | | CENTER - | | | | | | LABORATORY | | + + + + + + + + | Specimen | + + | Blood | + + + + + + + | Performing | Address | City/State/Zipcode | Phone Number | | Organization | | | | + + + + + | [facility] | [address] | [place] | [phone] | | [facility] | | [address] | | | - LABORATORY | | | | + + + + + Basic Metabolic Panel (11/28/2016 6:26 AM PDT) + + + + + + | Component | Value | Ref Range | Performed | Pathologist | | | | | At | Signature | + + + + + + | Na | 137 | 136 - 149 | [facility] | | | | | mmol/L | [facility] | | | | | | [facility] | | | | | | C[facility] - | | | | | | LABORATORY | | + + + + + + | K | 3.9 | 3.5 - 5.1 | [facility] | | | | | mmol/L | [facility] | | | | | | [facility] | | | | | | CENTER - | | | | | | LABORATORY | | + + + + + + | Cl | 105 | 98 - 109 mmol/L | [facility] | | | | | | [facility] | | | | | | [facility] | | | | | | CENTER - | | | | | | LABORATORY | | + + + + + + | CO2 | 25 | 24 - 31 mmol/L | [facility] | | | | | | [facility] | | | | | | [facility] | | | | | | CENTER - | | | | | | LABORATORY | | + + + + + + | Anion Gap | 7 | 3 - 16 mmol/L | [facility] | | | | | | [facility] | | | | | | [facility] | | | | | | [facility] - | | | | | | LABORATORY | | + + + + + + | Glucose | 203 (H) | 70 - 109 mg/dL | [facility] | | | | | | [facility] | | | | | | [facility] | | | | | | CENTER - | | | | | | LABORATORY | | + + + + + + | BUN | 12 | 7 - 18 mg/dL | [facility] | | | | | | [facility] | | | | | | [facility] | | | | | | CENTER - | | | | | | LABORATORY | | + + + + + + | Creatinine | 0.77 | 0.60 - 1.30 | [facility] | | | | | mg/dL | [facility] | | | | | | [facility] | | | | | | CENTER - | | | | | | LABORATORY | | + + + + + + | eGFR if not | >60Comment: GLOMERULAR | >=60 | [facility] | | | | FILTRATION | mL/min/1.73m2 | [facility] | | | MALTESE | RATE,ESTIMATED | | MEDICAL | | | | mL/min/1.98z3Drje than | | CENTER - | | | | 60 Chronic kidney | | LABORATORY | | | | disease,if found over a | | | | | | 3-month period.Less than | | | | | | 15 Kidney failureFor | | | | | | | | | | | | Americans,multiply the | | | | | | calculated GFR by 1.21. | | | | | | | | | | + + + + + + | Calcium | 8.3 | 8.3 - 10.5 | [facility] | | | | | mg/dL | [facility] | | | | | | [facility] | | | | | | CENTER - | | | | | | LABORATORY | | + + + + + + | BUN/Creatin | 15.6 | | [facility] | | | ine Ratio | | | [facility] | | | | | | [facility] | | | | | | CENTER - | | | | | | LABORATORY | | + + + + + + + + | Specimen | + + | Blood | + + + + + + + | Performing | Address | City/State/Zipcode | Phone Number | | Organization | | | | + + + + + | [facility] | [address] | [place] | [phone] | | [facility] | | [address] | | | - LABORATORY | | | | + + + + + Culture, Respiratory, Lower, Smear (11/27/2016 10:54 AM PDT) + + + + + + | Component | Value | Ref Range | Performed | Pathologist | | | | | At | Signature | + + + + + + | Culture | 3+ Usual Respiratory | | [facility] | | | | Gab[facility]ela | | [facility] | | | | | | [facility] | | | | | | [facility] - | | | | | | LABORATORY | | + + + + + + | Culture | 2+ Jemima albicans | | [facility] | | | | | | [facility] | | | | | | [facility]ICAL | | | | | | CENTER - | | | | | | LABORATORY | | + + + + + + | Gram Stain | 4+ White Blood Cells | | [facility] | | | Result | | | [facility] | | | | | | [facility] | | | | | | C[facility] - | | | | | | LABORATORY | | + + + + + + | Gram Stain | 2+ Epithelial cells | | [facility] | | | Result | | | [facility] | | | | | | [facility] | | | | | | CENTER - | | | | | | LABORATORY | | + + + + + + | Gram Stain | 2+ Gram positive cocci | | [facility] | | | Result | | | [facility] | | | | | | [facility] | | | | | | C[facility] - | | | | | | LABORATORY | | + + + + + + | Gram Stain | 1+ Gram positive bacilli | | [facility] | Result | | | [facility] | | | | | | [facility] | | | | | | CENTER - | | | | | | LABORATORY | | + + + + + + | Gram Stain | 1+ Gram negative rods | | [facility] | | | Result | | | [facility] | | | | | | [facility] | | | | | | CENTER - | | | | | | LABORATORY | | + + + + + + + + | Specimen | + + | Respiratory - | | Coughed sputum | | specimen (specimen) | + + + + + + + | Performing | Address | City/State/Zipcode | Phone Number | | Organization | | | | + + + + + | [facility] | [address] | [place] | [phone] | | [facility] | | [address] | | | - LABORATORY | | | | + + + + + Culture, Blood (11/27/2016 6:38 AM PDT) + + + + + + | Component | Value | Ref Range | Performed | Pathologist | | | | | At | Signature | + + + + + + | Culture | No growth after 5 days | | [facility] | | | | incubation. | | [facility] | | | | | | MEDICAL | | | | | | CENTER - | | | | | | LABORATORY | | + + + + + + + + | Specimen | + + | Blood - Peripheral | | blood specimen | | (specimen) | + + + + + + + | Performing | Address | City/State/Zipcode | Phone Number | | Organization | | | | + + + + + | [facility] | [address] | [place] | [phone] | | [facility] | | [address] | | | - LABORATORY | | | | + + + + + Culture, Blood (11/27/2016 6:38 AM PDT) + + + + + + | Component | Value | Ref Range | Performed | Pathologist | | | | | At | Signature | + + + + + + | Culture | No growth after 5 days | | [facility] | | | | incubation. | | [facility] | | | | | | MEDICAL | | | | | | CENTER - | | | | | | LABORATORY | | + + + + + + + + | Specimen | + + | Blood - Peripheral | | blood specimen | | (specimen) | + + + + + + + | Performing | Address | City/State/Zipcode | Phone Number | | Organization | | | | + + + + + | [facility] | [address] | [place] | [phone] | | [facility] | | [address] | | | - LABORATORY | | | | + + + + + CT Angiogram Pulmonary (11/27/2016 5:25 AM PDT) + + | Specimen | + + | | + + + + + | Narrative | Performed At | + + + | CT ANGIOGRAM PULMONARY 11/27/2016 5:24 AM HISTORY: SHORTNESS OF | [facility] | | BREATH. COMPARISON: None. PROTOCOL: Thin section axial images | | | of the chest were obtained after uneventful administration of 60 mL | | | Omnipaque 350. Coronal and sagittal reformations were acquired. | | | FINDINGS: Neck base is normal. Heart size is at the upper limits | | | of normal. There is moderate atherosclerosis of the aorta. The | | | pulmonary arteries are unremarkable. SVC is normal. No enlarged | | | lymph nodes are seen in the mediastinum, adam, or axillae. Trachea | | | and esophagus demonstrate no acute findings. Mild atelectasis are | | | in the left lung lingula and bilateral lower lobes. The upper | | | abdomen demonstrates no acute findings. Chest wall structures are | | | normal. Fusion hardware is partially imaged in the cervical spine. | | | Moderate right curvature of the thoracic spine is seen. There is mild | | | spondylosis of the thoracic spine. IMPRESSION - No evidence for | | | pulmonary embolism. A preliminary report was sent by [id number] | | | Imaging with no significant discrepancy. Dictated and Signed by: | | | Joseph Powell MD Electronically signed: 11/27/2016 1:15 PM | | + + + + + | Procedure Note | + + | Steven, Rad Results In - 11/27/2016 1:[address] ANGIOGRAM PULMONARY 11/27/2016 5:24 | | AMHISTORY: SHORTNESS OF BREATH.COMPARISON: None.PROTOCOL: Thin section axial images of | | the chest were obtained after uneventfuladministration of 60 mL Omnipaque 350. Coronal | | and sagittal reformations wereacquired.FINDINGS:Neck base is normal.Heart size is at the | | upper limits of normal. There is moderate atherosclerosisof the aorta. The pulmonary | | arteries are unremarkable. SVC is normal.No enlarged lymph nodes are seen in the | | mediastinum, adam, or axillae. Tracheaand esophagus demonstrate no acute findings.Mild | | atelectasis are in the left lung lingula and bilateral lower lobes.The upper abdomen | | demonstrates no acute findings.Chest wall structures are normal. Fusion hardware is | | partially imaged in thecervical spine. Moderate right curvature of the thoracic spine is | | seen. There ismild spondylosis of the thoracic spine.IMPRESSION -No evidence for | | pulmonary embolism.A preliminary report was sent by [employer] with no | | significantdiscrepancy.Dictated and Signed by: Joseph Powell MD Electronically signed: | | 11/27/2016 1:15 PM | |of the aorta. The pulmonary arteries are unremarkable. SVC is normal. | | | |No enlarged lymph nodes are seen in the mediastinum, adam, or axillae. Trachea | |and esophagus demonstrate no acute findings. | | | |Mild atelectasis are in the left lung lingula and bilateral lower lobes. | | | |The upper abdomen demonstrates no acute findings. | | | |Chest wall structures are normal. Fusion hardware is partially imaged in the | |cervical spine. Moderate right curvature of the thoracic spine is seen. There is | |mild spondylosis of the thoracic spine. | | | |IMPRESSION - | |No evidence for pulmonary embolism. | | | |A preliminary report was sent by [employer] with no significant | |discrepancy. | | | |Dictated and Signed by: Joseph Powell MD | | Electronically signed: 11/27/2016 1:15 PM | + + + +---------+ + + | Performing | Address | City/State/Zipcode | Phone Number | | Organization | | | | + +---------+ + + | [facility] | | | | + +---------+ + + Procalcitonin (11/27/2016 4:33 AM PDT) + + + + + + | Component | Value | Ref Range | Performed | Pathologist | | | | | At | Signature | + + + + + + | Procalciton | <0.05 | <=0.50 ng/mL | [facility] | | | in | | | [facility] | | | | | | [facility] | | | | | | [facility] - | | | | | | LABORATORY | | + + + + + + | Comment | Comment: < 0.50 | | [facility] | | | | ng/mL:Procalcitonin | | [facility] | | | | levels below 0.50 ng/mL | | MEDICAL | | | | on the first day of | | CENTER - | | | | admission represents a | | LABORATORY | | | | low risk for progression | | | | | | to severe sepsis and/or | | | | | | septic shock, however | | | | | | these do not exclude an | | | | | | infection, because | | | | | | localized infections | | | | | | (without systemic signs) | | | | | | may also be associated | | | | | | with such low levels. | | | | | | > 2.00 | | | | | | ng/mL:Procalcitonin | | | | | | levels above 2.00 ng/mL | | | | | | on the first day of | | | | | | admission represents a | | | | | | high risk for | | | | | | progression to severe | | | | | | sepsis and/or septic | | | | | | shock. If the | | | | | | procalcitonin | | | | | | measurement is performed | | | | | | shortly after the | | | | | | systemic infection | | | | | | process has started | | | | | | (usually less than 6 | | | | | | hours), these values may | | | | | | still be low. As | | | | | | various non-infectious | | | | | | conditions are known to | | | | | | induce procalcitonin as | | | | | | well, procalcitonin | | | | | | levels between 0.50 | | | | | | ng/mL and 2.00 ng/mL | | | | | | should be reviewed | | | | | | carefully to take into | | | | | | account the specific | | | | | | clinical background and | | | | | | condition(s) of the | | | | | | individual patient. | | | | + + + + + + + + | Specimen | + + | Blood | + + + + + + + | Performing | Address | City/State/Zipcode | Phone Number | | Organization | | | | + + + + + | [facility] | [address] | [place] | [phone] | | [facility] | | [address] | | | - LABORATORY | | | | + + + + + CBC with Differential (11/27/2016 4:33 AM PDT) + + + + + + | Component | Value | Ref Range | Performed | Pathologist | | | | | At | Signature | + + + + + + | WBC | 14.1 (H) | 4.0 - 11.0 K/uL | [facility] | | | | | | [facility] | | | | | | [facility] | | | | | | C[facility] - | | | | | | LABORATORY | | + + + + + + | RBC | 5.26 (H) | 3.70 - 5.20 | [facility] | | | | | M/uL | [facility] | | | | | | [facility] | | | | | | C[facility] - | | | | | | LABORATORY | | + + + + + + | Hemoglobin | 15.9 | 11.5 - 16.0 | [facility] | | | | | g/dL | [facility] | | | | | | [facility] | | | | | | CENTER - | | | | | | LABORATORY | | + + + + + + | Hematocrit | 47.6 (H) | 34.0 - 47.0 % | [facility] | | | | | | [facility] | | | | | | [facility] | | | | | | C[facility] - | | | | | | LABORATORY | | + + + + + + | MCV | 90.4 | 83.0 - 101.0 fL | [facility] | | | | | | [facility] | | | | | | [facility] | | | | | | C[facility] - | | | | | | LABORATORY | | + + + + + + | MCH | 30.3 | 28.0 - 35.0 pg | [facility] | | | | | | [facility] | | | | | | [facility] | | | | | | C[facility] - | | | | | | LABORATORY | | + + + + + + | MCHC | 33.5 | 32.0 - 36.0 | [facility] | | | | | g/dL | [facility] | | | | | | [facility] | | | | | | CENTER - | | | | | | LABORATORY | | + + + + + + | RDW-CV | 14.0 | <15.0 % | [facility] | | | | | | [facility] | | | | | | [facility] | | | | | | C[facility] - | | | | | | LABORATORY | | + + + + + + | Platelet | 279 | 140 - 440 K/uL | [facility] | | | Count | | | [facility] | | | | | | [facility] | | | | | | CENTER - | | | | | | LABORATORY | | + + + + + + | MPV | 10.0 | fL | [facility] | | | | | | [facility] | | | | | | [facility] | | | | | | C[facility] - | | | | | | LABORATORY | | + + + + + + | % | 78.9 | 45.0 - 82.0 % | [facility] | | | Neutrophils | | | [facility] | | | | | | [facility]ICAL | | | | | | CENTER - | | | | | | LABORATORY | | + + + + + + | % | 14.9 (L) | 20.0 - 45.0 % | [facility] | | | Lymphocytes | | | [facility] | | | | | | MEDICAL | | | | | | CENTER - | | | | | | LABORATORY | | + + + + + + | % Monocytes | 4.5 | 4.0 - 12.0 % | [facility] | | | | | | [facility] | | | | | | [facility] | | | | | | C[facility] - | | | | | | LABORATORY | | + + + + + + | % | 0.6 | 0.0 - 5.0 % | [facility] | | | Eosinophils | | | [facility] | | | | | | MEDICAL | | | | | | CENTER - | | | | | | LABORATORY | | + + + + + + | % Basophils | 1.1 (H) | 0.0 - 1.0 % | [facility] | | | | | | [facility] | | | | | | [facility] | | | | | | CENTER - | | | | | | LABORATORY | | + + + + + + | Absolute | 11.20 (H) | 1.80 - 8.50 | [facility] | | | Neutrophils | | K/uL | [facility] | | | | | | [facility]ICAL | | | | | | CENTER - | | | | | | LABORATORY | | + + + + + + | Absolute | 2.10 | 0.60 - 3.20 | [facility] | | | Lymphocytes | | K/uL | [facility] | | | | | | [facility] | | | | | | CENTER - | | | | | | LABORATORY | | + + + + + + | Absolute | 0.60 | 0.00 - 1.00 | [facility] | | | Monocytes | | K/uL | [facility] | | | | | | [facility] | | | | | | CENTER - | | | | | | LABORATORY | | + + + + + + | Absolute | 0.10 | 0.00 - 0.40 | [facility] | | | Eosinophils | | K/uL | [facility] | | | | | | [facility] | | | | | | CENTER - | | | | | | LABORATORY | | + + + + + + | Absolute | 0.20 (H) | 0.00 - 0.10 | [facility] | | | Basophils | | K/uL | [facility] | | | | | | [facility] | | | | | | C[facility] - | | | | | | LABORATORY | | + + + + + + + + | Specimen | + + | Blood | + + + + + + + | Performing | Address | City/State/Zipcode | Phone Number | | Organization | | | | + + + + + | [facility] | [address] | [place], [place] | [phone] | | [facility] | | [address] | | | - LABORATORY | | | | + + + + + C-Reactive Protein (11/27/2016 4:33 AM PDT) + +-------+ + + + | Component | Value | Ref Range | Performed | Pathologist | | | | | At | Signature | + +-------+ + + + | CRP | 4.38 | <8.00 mg/L | [facility] | | | | | | [facility] | | | | | | [facility] | | | | | | CENTER - | | | | | | LABORATORY | | + +-------+ + + + + + | Specimen | + + | Blood | + + + + + + + | Performing | Address | City/State/Zipcode | Phone Number | | Organization | | | | + + + + + | [facility] | [address] | [place] | [phone] | | [facility] | | [address] | | | - LABORATORY | | | | + + + + + Basic Metabolic Panel (11/27/2016 4:33 AM PDT) + + + + + + | Component | Value | Ref Range | Performed | Pathologist | | | | | At | Signature | + + + + + + | Na | 141 | 136 - 149 | [facility] | | | | | mmol/L | [facility] | | | | | | MED[facility] | | | | | | CENTER - | | | | | | LABORATORY | | + + + + + + | K | 3.8 | 3.5 - 5.1 | [facility] | | | | | mmol/L | [facility] | | | | | | [facility] | | | | | | CENTER - | | | | | | LABORATORY | | + + + + + + | Cl | 105 | 98 - 109 mmol/L | [facility] | | | | | | [facility] | | | | | | [facility] | | | | | | CENTER - | | | | | | LABORATORY | | + + + + + + | CO2 | 26 | 24 - 31 mmol/L | [facility] | | | | | | [facility] | | | | | | [facility] | | | | | | CENTER - | | | | | | LABORATORY | | + + + + + + | Anion Gap | 10 | 3 - 16 mmol/L | [facility] | | | | | | [facility] | | | | | | [facility] | | | | | | CENTER - | | | | | | LABORATORY | | + + + + + + | Glucose | 122 (H) | 70 - 109 mg/dL | [facility] | | | | | | [facility] | | | | | | [facility] | | | | | | CENTER - | | | | | | LABORATORY | | + + + + + + | BUN | 13 | 7 - 18 mg/dL | [facility] | | | | | | [facility] | | | | | | [facility] | | | | | | [facility] - | | | | | | LABORATORY | | + + + + + + | Creatinine | 1.01 | 0.60 - 1.30 | [facility] | | | | | mg/dL | [facility] | | | | | | [facility] | | | | | | C[facility] - | | | | | | LABORATORY | | + + + + + + | eGFR if not | 53 (L)Comment: | >=60 | [facility] | | | | GLOMERULAR FILTRATION | mL/min/1.73m2 | [facility] | | | MALTESE | RATE,ESTIMATED | | MEDICAL | | | | mL/min/1.90u8Dcbb than | | CENTER - | | | | 60 Chronic kidney | | LABORATORY | | | | disease,if found over a | | | | | | 3-month period.Less than | | | | | | 15 Kidney failureFor | | | | | | | | | | | | Americans,multiply the | | | | | | calculated GFR by 1.21. | | | | | | | | | | + + + + + + | Calcium | 8.5 | 8.3 - 10.5 | [facility] | | | | | mg/dL | [facility] | | | | | | MEDICAL | | | | | | CENTER - | | | | | | LABORATORY | | + + + + + + | BUN/Creatin | 12.9 | | [facility] | | | ine Ratio | | | [facility] | | | | | | MEDICAL | | | | | | CENTER - | | | | | | LABORATORY | | + + + + + + + + | Specimen | + + | Blood | + + + + + + + | Performing | Address | City/State/Zipcode | Phone Number | | Organization | | | | + + + + + | [facility] | [address] | [place] | [phone] | | [facility] | | [address] | | | - LABORATORY | | | | + + + + + Extra Lavender Top Tube (11/27/2016 4:33 AM PDT) + +-------+ + + + | Component | Value | Ref Range | Performed | Pathologist | | | | | At | Signature | + +-------+ + + + | Extra | Done | | [facility] | | | Lavender | | | [facility] | | | Top Tube | | | MEDICAL | | | | | | CENTER - | | | | | | LABORATORY | | + +-------+ + + + + + | Specimen | + + | Blood | + + + + + + + | Performing | Address | City/State/Zipcode | Phone Number | | Organization | | | | + + + + + | [facility] | [address] | [place] | [phone] | | [facility] | | [address] | | | - LABORATORY | | | | + + + + + Extra Gold Top Tube (11/27/2016 4:33 AM PDT) + +-------+ + + + | Component | Value | Ref Range | Performed | Pathologist | | | | | At | Signature | + +-------+ + + + | Extra Gold | Done | | [facility] | | | Top Tube | | | [facility] | | | | | | MEDICAL | | | | | | CENTER - | | | | | | LABORATORY | | + +-------+ + + + + + | Specimen | + + | Blood | + + + + + + + | Performing | Address | City/State/Zipcode | Phone Number | | Organization | | | | + + + + + | [facility] | [address] | [place] | [phone] | | [facility] | | [address] | | | - LABORATORY | | | | + + + + + Extra Blue Top Tube (11/27/2016 4:33 AM PDT) + +-------+ + + + | Component | Value | Ref Range | Performed | Pathologist | | | | | At | Signature | + +-------+ + + + | Extra Blue | Done | | [facility] | | | Top Tube | | | [facility] | | | | | | MEDICAL | | | | | | CENTER - | | | | | | LABORATORY | | + +-------+ + + + + + | Specimen | + + | Blood | + + + + + + + | Performing | Address | City/State/Zipcode | Phone Number | | Organization | | | | + + + + + | [facility] | [address] | [place] | [phone] | | [facility] | | [address] | | | - LABORATORY | | | | + + + + + Extra Green Top Tube (11/27/2016 4:33 AM PDT) + +-------+ + + + | Component | Value | Ref Range | Performed | Pathologist | | | | | At | Signature | + +-------+ + + + | Extra Green | Done | | [facility] | | | Top Tube | | | [facility] | | | | | | MEDICAL | | | | | | CENTER - | | | | | | LABORATORY | | + +-------+ + + + + + | Specimen | + + | Blood | + + + + + + + | Performing | Address | City/State/Zipcode | Phone Number | | Organization | | | | + + + + + | [facility] | [address] | [place] | [phone] | | [facility] | | [address] | | | - LABORATORY | | | | + + + + + LABS - EXTERNAL SCAN (11/26/2016 12:00 AM PDT) + + + | Narrative | Performed At | + + + | Ordered by an | | | unspecified provider. | | + + + documented in this encounter Visit Diagnoses + + | Diagnosis | + + | Asthma exacerbation - Primary Unspecified asthma, with exacerbation | + + | Dyspnea, unspecified type | + + | COPD (chronic obstructive pulmonary disease) (HCC) Chronic airway obstruction, not | | elsewhere classified | + + documented in this encounter Admitting Diagnoses + + | Diagnosis | + + | Asthma exacerbation Unspecified asthma, with exacerbation | + + | Dyspnea, unspecified type | + + documented in this encounter Administered Medications + +--------+---------+------+------+------+ | Medication Order | MAR | Action | Dose | Rate | Site | | | Action | Date | | | | + +--------+---------+------+------+------+ + +---+ | acetaminophen (TYLENOL) 160 | | | mg/5 mL liquid 650 mg 650 mg, | | | Oral, EVERY 4 HOURS PRN, Pain, or | | | fever >= 38.3 C (101.5 F), | | | Starting 11/27/16 at 0830, May | | | use liquid for patients unable | | | to swallow tablets., | | + +---+ | | | + +---+ | acetaminophen (TYLENOL) tablet | | | 650 mg 650 mg, Oral, EVERY 4 | | | HOURS PRN, Pain, or fever >= 38.3 | | | C (101.5 F), Starting Sat | | | 11/27/16 at 0830, If ordered, may | | | use liquid for patients unable to | | | swallow tablets., | | + +---+ | | | + +---+ + +-------+ +--------+---+---+ | albuterol 2.5 mg/3 mL nebulizer | Given | 11/29/19 | 2.5 mg | | | | solution 2.5 mg 2.5 mg, | | 17 1:15 | | | | | Nebulization, RT EVERY 2 HOURS | | AM PDT | | | | | PRN, Shortness of Breath, | | | | | | | Starting 11/27/16 at 1600, RT | | | | | | | will administer., | | | | | | + +-------+ +--------+---+---+ +---+---+ | | | +---+---+ + +-------+ +------+---+---+ | albuterol 5 mg/mL concentrated | Given | 11/28/19 | 5 mg | | | | nebulizer solution 5 mg 5 mg, | | 17 3:46 | | | | | Nebulization, RT Once, Sat | | AM PDT | | | | | 11/27/16 at 0340, For 1 dose, RT | | | | | | | will administer., | | | | | | + +-------+ +------+---+---+ +---+---+ | | | +---+---+ + +-------+ +------+---+---+ | albuterol 5 mg/mL concentrated | Given | 11/28/19 | 5 mg | | | | nebulizer solution 5 mg 5 mg, | | 17 4:41 | | | | | Nebulization, RT Once, Sat | | AM PDT | | | | | 11/27/16 at 0420, For 1 dose, RT | | | | | | | will administer., | | | | | | + +-------+ +------+---+---+ +---+---+ | | | +---+---+ + +-------+ +-------+---+---+ | albuterol-ipratropium (DUONEB) | Given | 11/28/19 | 3 mLs | | | | 2.5-0.5 mg/3 mL nebulizer | | 17 3:42 | | | | | solution 3 mL 3 mL, | | AM PDT | | | | | Nebulization, RT Once, Sat | | | | | | | 11/27/16 at 0340, For 1 dose | | | | | | + +-------+ +-------+---+---+ +---+---+ | | | +---+---+ + +-------+ +-------+---+---+ | albuterol-ipratropium (DUONEB) | Given | 11/28/19 | 3 mLs | | | | 2.5-0.5 mg/3 mL nebulizer | | 17 12:53 | | | | | solution 3 mL 3 mL, | | PM PDT | | | | | Nebulization, EVERY 4 HOURS (6 | | | | | | | times per day), First dose on Sat | | | | | | | 11/27/16 at 0840 | | | | | | + +-------+ +-------+---+---+ +-------+ +-------+---+---+ | Given | 11/28/19 | 3 mLs | | | | | 17 9:00 | | | | | | AM PDT | | | | +-------+ +-------+---+---+ +---+---+ | | | +---+---+ + +-------+ +-------+---+---+ | albuterol-ipratropium (DUONEB) | Given | 12/02/19 | 3 mLs | | | | 2.5-0.5 mg/3 mL nebulizer | | 17 8:00 | | | | | solution 3 mL 3 mL, | | AM PDT | | | | | Nebulization, RT Q4H, First dose | | | | | | | (after last reorder) on Sat | | | | | | | 11/27/16 at 1700 | | | | | | + +-------+ +-------+---+---+ +-------+ +-------+---+---+ | Given | 12/02/19 | 3 mLs | | | | | 17 3:23 | | | | | | AM PDT | | | | +-------+ +-------+---+---+ | Given | 12/01/19 | 3 mLs | | | | | 17 11:07 | | | | | | PM PDT | | | | +-------+ +-------+---+---+ +---+---+ | | | +---+---+ + +-------+ +--------+---+---+ | benzonatate (TESSALON) capsule | Given | 11/28/19 | 200 mg | | | | 200 mg 200 mg, Oral, 3 TIMES | | 17 9:29 | | | | | DAILY PRN, Cough, Starting Sat | | PM PDT | | | | | 11/27/16 at 0836 | | | | | | + +-------+ +--------+---+---+ + +---+ | | | + +---+ | bisacodyl (DULCOLAX) | | | suppository 10 mg 10 mg, Rectal, | | | DAILY PRN, Constipation, | | | Starting 11/27/16 at 0832, If | | | no BM in prior 24 hours. Hold | | | for loose stools., | | + +---+ | | | + +---+ + +-------+ +--------+---+---+ | budesonide (PULMICORT) 0.5 mg/2 | Given | 12/02/19 | 0.5 mg | | | | mL nebulizer solution 0.5 mg | | 17 8:23 | | | | | 0.5 mg, Nebulization, RT BID, | | AM PDT | | | | | First dose on 11/27/16 at | | | | | | | 2100, RT will administer. Shake | | | | | | | well. Protect from light. Rinse | | | | | | | mouth after use., | | | | | | + +-------+ +--------+---+---+ +-------+ +--------+---+---+ | Given | 12/01/19 | 0.5 mg | | | | | 17 7:12 | | | | | | PM PDT | | | | +-------+ +--------+---+---+ | Given | 12/01/19 | 0.5 mg | | | | | 17 8:01 | | | | | | AM PDT | | | | +-------+ +--------+---+---+ +---+---+ | | | +---+---+ + +-------+ +------+---+---+ | dexamethasone (DECADRON) 10 | Given | 11/28/19 | 8 mg | | | | mg/mL injection 8 mg 8 mg, | | 17 4:31 | | | | | Intravenous, ONCE, 11/27/16 at | | AM PDT | | | | | 0420, For 1 dose, When ordered | | | | | | | IV push: Dilute to 10-20 mL with | | | | | | | NS and give slowly over 1-2 | | | | | | | minutes., | | | | | | + +-------+ +------+---+---+ +---+---+ | | | +---+---+ + +-------+ +-------+---+ + | enoxaparin (LOVENOX) 40 mg/0.4 | Given | 12/02/19 | 40 mg | | Abdomen- | | mL injection 40 mg 40 mg, | | 17 9:04 | | | LLQ | | Subcutaneous, EVERY 24 HOURS | | AM PDT | | | | | (Daily), First dose on Sat | | | | | | | 11/27/16 at 0900 | | | | | | + +-------+ +-------+---+ + +-------+ +-------+---+ + | Given | 12/01/19 | 40 mg | | Abdomen- | | | 17 8:36 | | | LUQ | | | AM PDT | | | | +-------+ +-------+---+ + | Given | 11/30/19 | 40 mg | | Abdomen- | | | 17 8:22 | | | LUQ | | | AM PDT | | | | +-------+ +-------+---+ + +---+---+ | | | +---+---+ + +-------+ +-------+---+---+ | famotidine (PEPCID) 40 mg/5 mL | Given | 12/02/19 | 20 mg | | | | suspension 20 mg 20 mg, Oral, 2 | | 17 9:04 | | | | | TIMES DAILY, First dose on Sat | | AM PDT | | | | | 11/27/16 at 0900, Blaine wood, | | | | | | + +-------+ +-------+---+---+ +-------+ +-------+---+---+ | Given | 12/01/19 | 20 mg | | | | | 17 8:12 | | | | | | PM PDT | | | | +-------+ +-------+---+---+ | Given | 12/01/19 | 20 mg | | | | | 17 8:36 | | | | | | AM PDT | | | | +-------+ +-------+---+---+ +---+---+ | | | +---+---+ + +-------+ +--------+---+---+ | guaiFENesin (MUCINEX) ER tablet | Given | 12/02/19 | 600 mg | | | | 600 mg 600 mg, Oral, 2 TIMES | | 17 9:05 | | | | | DAILY, First dose on 11/27/16 | | AM PDT | | | | | at 0900, Do not cut or crush. | | | | | | | Take with a full glass of water., | | | | | | | | | | | | | + +-------+ +--------+---+---+ +-------+ +--------+---+---+ | Given | 12/01/19 | 600 mg | | | | | 17 8:12 | | | | | | PM PDT | | | | +-------+ +--------+---+---+ | Given | 12/01/19 | 600 mg | | | | | 17 8:36 | | | | | | AM PDT | | | | +-------+ +--------+---+---+ +---+---+ | | | +---+---+ + +-------+ +--------+---+---+ | iohexol (OMNIPAQUE 350) 350 | Given | 11/28/19 | 60 mLs | | | | mg/mL injection 60 mL 60 mL, | | 17 5:25 | | | | | Intravenous, ONCE PRN, Other, | | AM PDT | | | | | Starting 11/27/16 at 0525, For | | | | | | | 1 dose, Cat Scanner | | | | | | + +-------+ +--------+---+---+ +---+---+ | | | +---+---+ + +---------+ +--------+ +---+ | levoFLOXacin in dextrose | New Bag | 12/02/19 | 250 mg | 50 mL/hr | | | (LEVAQUIN) IVPB 250 mg 250 mg, | | 17 9:04 | | | | | Intravenous, Administer over 60 | | AM PDT | | | | | Minutes, DAILY, First dose (after | | | | | | | last modification) on Tue12/01/16 | | | | | | | at 0900, Indications: Acute | | | | | | | bronchitis | | | | | | + +---------+ +--------+ +---+ +---+---+ | | | +---+---+ + +---------+ +--------+-------+---+ | levoFLOXacin in dextrose | New Bag | 11/28/19 | 750 mg | 100 | | | (LEVAQUIN) IVPB 750 mg 750 mg, | | 17 6:01 | | mL/hr | | | Intravenous, Administer over 90 | | AM PDT | | | | | Minutes, ONCE, 11/27/16 at | | | | | | | 0600, For 1 dose, Indications: | | | | | | | Acute Exacerbation of COPD | | | | | | + +---------+ +--------+-------+---+ +---+---+ | | | +---+---+ + +---------+ +--------+-------+---+ | levoFLOXacin in dextrose | New Bag | 11/30/19 | 750 mg | 100 | | | (LEVAQUIN) IVPB 750 mg 750 mg, | | 17 8:21 | | mL/hr | | | Intravenous, Administer over 90 | | AM PDT | | | | | Minutes, EVERY OTHER DAY, First | | | | | | | dose (after last modification) on | | | | | | | 11/29/16 at 0900, | | | | | | | Indications: Acute bronchitis | | | | | | + +---------+ +--------+-------+---+ + +---+ | | | + +---+ | LORazepam (ATIVAN) injection | | | 0.5 mg 0.5 mg, Intravenous, | | | NIGHTLY PRN, Insomnia, Starting | | | 11/27/16 at 0832, IV to be | | | given only if patients unable to | | | take PO. Caution: medications may | | | pose a fall risk., | | + +---+ | | | + +---+ | LORazepam (ATIVAN) tablet 0.5 | | | mg 0.5 mg, Oral, NIGHTLY PRN, | | | Insomnia, Starting 11/27/16 at | | | 0832, Caution: medications may | | | pose a fall risk., | | + +---+ | | | + +---+ + +-------+ +-------+---+---+ | methylPREDNISolone sodium | Given | 12/02/19 | 40 mg | | | | succinate (solu-MEDROL) 40 mg/mL | | 17 5:36 | | | | | injection 40 mg 40 mg, | | AM PDT | | | | | Intravenous, EVERY 6 HOURS (4 | | | | | | | times per day), First dose on Sat | | | | | | | 11/27/16 at 1200, Mix with 1 mL | | | | | | | provided diluent to make 40 | | | | | | | mg/mL., | | | | | | + +-------+ +-------+---+---+ +-------+ +-------+---+---+ | Given | 12/02/19 | 40 mg | | | | | 17 12:40 | | | | | | AM PDT | | | | +-------+ +-------+---+---+ | Given | 12/01/19 | 40 mg | | | | | 17 5:48 | | | | | | PM PDT | | | | +-------+ +-------+---+---+ +---+---+ | | | +---+---+ + +-------+ +--------+---+---+ | methylPREDNISolone sodium | Given | 11/28/19 | 125 mg | | | | succinate (solu-MEDROL) 62.5 | | 17 10:33 | | | | | mg/mL injection 125 mg 125 mg, | | AM PDT | | | | | Intravenous, ONCE, 11/27/16 at | | | | | | | 0840, For 1 dose, Mix with 2 mL | | | | | | | provided diluent to make 62.5 | | | | | | | mg/mL., | | | | | | + +-------+ +--------+---+---+ + +---+ | | | + +---+ | ondansetron (ZOFRAN ODT) | | | disintegrating tablet 4 mg 4 mg, | | | Oral, EVERY 6 HOURS PRN, Nausea, | | | Vomiting, Starting 11/27/16 | | | at 0832, First line agent, | | + +---+ | | | + +---+ | ondansetron (ZOFRAN) injection | | | 4 mg 4 mg, Intravenous, EVERY 6 | | | HOURS PRN, Nausea, Vomiting, | | | Starting 11/27/16 at 0832, | | | First line agent. Use PO option | | | unless NPO status or unable to | | | tolerate., | | + +---+ | | | + +---+ | phenol (CHLORASEPTIC) spray 5 | | | spray 5 spray, Mouth/Throat, | | | EVERY 2 HOURS PRN, Sore Throat, | | | Starting 11/27/16 at 0836, | | | Apply to affected area, allow to | | | remain in place for at least 15 | | | seconds, then spit out., | | + +---+ | | | + +---+ + +-------+ +---------+---+---+ | racemic EPINEPHrine 2.25% | Given | 11/29/19 | 0.5 mLs | | | | nebulizer solution 0.5 mL 0.5 | | 17 3:36 | | | | | mL, Nebulization, RT Q4H, First | | PM PDT | | | | | dose on 11/28/16 at 0400, For | | | | | | | 4 doses, RT will administer., | | | | | | + +-------+ +---------+---+---+ +-------+ +---------+---+---+ | Given | 11/29/19 | 0.5 mLs | | | | | 17 11:25 | | | | | | AM PDT | | | | +-------+ +---------+---+---+ | Given | 11/29/19 | 0.5 mLs | | | | | 17 8:08 | | | | | | AM PDT | | | | +-------+ +---------+---+---+ + +---+ | | | + +---+ | racemic EPINEPHrine 2.25% | | | nebulizer solution Starting Sun | | | 11/28/16 at 0306, For 1 dose, | | | YANETH ROBISON: swetha laamo, | | | | | + +---+ | | | + +---+ + +-------+ +--------+---+---+ | senna (SENOKOT) tablet 8.6 mg | Given | 12/02/19 | 8.6 mg | | | | 8.6 mg, Oral, 2 TIMES DAILY, | | 17 9:05 | | | | | First dose on 11/27/16 at | | AM PDT | | | | | 0900, If docusate ineffective or | | | | | | | not ordered, give BID until BM, | | | | | | | then PRN. Hold for loose stools, | | | | | | | | | | | | | + +-------+ +--------+---+---+ +-------+ +--------+---+---+ | Given | 12/01/19 | 8.6 mg | | | | | 17 8:12 | | | | | | PM PDT | | | | +-------+ +--------+---+---+ | Given | 12/01/19 | 8.6 mg | | | | | 17 8:36 | | | | | | AM PDT | | | | +-------+ +--------+---+---+ +---+---+ | | | +---+---+ + +---------+ +--------+-------+---+ | sodium chloride 0.45% (1/2 NS) | New Bag | 12/02/19 | 1,000 | 100 | | | infusion at 100 mL/hr, | | 17 9:10 | mLs | mL/hr | | | Intravenous, CONTINUOUS, Starting | | AM PDT | | | | | 11/27/16 at 0840 | | | | | | + +---------+ +--------+-------+---+ +---------+ +--------+-------+---+ | New Bag | 12/02/19 | 1,000 | 100 | | | | 17 9:04 | mLs | mL/hr | | | | AM PDT | | | | +---------+ +--------+-------+---+ | New Bag | 12/01/19 | | 100 | | | | 17 9:48 | | mL/hr | | | | PM PDT | | | | +---------+ +--------+-------+---+ +---+---+ | | | +---+---+ + +------+ +--------+-------+---+ | sodium chloride 0.9% (NS) bolus | Push | 11/28/19 | 50 mLs | 3000 | | | 50 mL 50 mL, Intravenous, | | 17 5:25 | | mL/hr | | | Administer over 1 Minutes, ONCE | | AM PDT | | | | | PRN, for contrast study, Starting | | | | | | | 11/27/16 at 0524, For 1 dose, | | | | | | | May infuse at a different rate | | | | | | | per protocol., Cat Scanner | | | | | | + +------+ +--------+-------+---+ + +---+ | | | + +---+ | traZODone (DESYREL) tablet 25 | | | mg 25 mg, Oral, NIGHTLY PRN, | | | Insomnia, Starting 11/27/16 at | | | 0832 | | + +---+ | | | + +---+ documented in this encounter
--- OUTSIDE RECORDS SUMMARY | ~2019-04-19 | XMS | Encounter Summary ---
Demographics + + + | Address | [address] | | | [place] [address] | + + + | Home Phone | | + + + | Preferred Language | Unknown | + + + | Marital Status | | + + + | Jew Affiliation | Unknown | + + + | Race | Unknown | + + + | Ethnic Group | Unknown | + + + Author + + + | Author | [facility] | | | and [place] | + + + | Organization | [facility] | | | and [place] | [...] [place] | | | | | [address] | | + + + + + | Radha Patino | ECON | Unknown | | + + + + + Care Team Providers + +------+ + | Care Commercial Loan Manager Name | Role | Phone | [...] + + | 11/27/ | Hospital | [facility] | Britton Aguilar, | Asthma exacerbation | | 2017 - | Encounter | [facility] | [address] | (Primary Dx); | | | | [address] [place] | [place], [place] | Dyspnea, unspecified | | 12/01/ | | [place] [address] | [address] | type | | 2017 | | [phone] | | | | | | | Elisabeth, | | | | | | MD Jefferson [address] | | | | | [address] [place] | | | | | | [place] [address] | | | | | | [phone] | | | | | | | [...] pt and daughter Benedicto, they stated understanding. CLIENT SUPPORT ADMINISTRATOR took pt out in w/c at 12:50pm [...] Hahn PA-C In 2 days. Specialty: Physician Plaster Tender-Medical Contact information: [address] [place] [id number] Discharge Medications New Medications Details famotidine 40 [...] signed by: Nieves Kan MD, 12/01/2016 9:23 [facility] documented in this enc ounter Discharge Instructions [...] week. Cover mattress and pillows with special gngm-meko-vwxgmbldyr. Don t use upholstered furniturelike sofas or [...] spray bottles instead of aerosols. Pour liquid english instructor onto a rag or cloth instead of [...] with soap and warm water orusea hand maintenance specialist containing alco hol. Get a yearly flu [...] Be sure to read the labels on irjb-ujj-ubaohgj medicines.They may have ingredients titi t cause [...] about these symp toms. Date Last Reviewed: 05/02/201619996876-5656 [employer]. [address] [place] [address], [place] [address]. All righ ts reserved. This information is not intended as a substitute for professional medical care. Always follow your healthcare professional's instructions. Controlling Asthma Triggers: Irritants Irritants are things in the air that can trigger symptoms in some people with asthma or SOFTWARE DESIGN MANAGER D. Below are some common irritants. Some [...] spray bottles instead of aerosols. Pour liquid english instructor instead of spraying them. For example, instead of spraying a window with welt stitch cleaner, pour some on a rag or cloth. If you have a quick-relief inhaler, carry it with you at all times. If you can t avoid an area with irritants, watch for symptoms. If you have symptoms, leave the area and use your quick-relief inhaler as directed. Date Last Reviewed: 01/31/201619993329-0459 [employer]. [address] [place] [address], [place] [address]. All righ ts reserved. This information is [...] carpeting. Think about buying a home air welt stitch cleaner with a HEPA (high-efficiency particulate air) [...] reptiles don't cause allergies. Date Last Reviewed: 01/31/201619997038-0953 [employer]. [address] [place] [address], [place] [address]. All righ ts reserved. This information is [...] MD - 11/29/2016 10:1 7 PM PDT [facility] HOSPITALIST PROGRESS NOTE Patient: Sherron Patino : 1940: Age: 75 y.o. MedRec: [id number] PCP: Jared Hahn PA-C Admission date: 11/27/2016 [...] as outlined above. Jefferson Doll 11/29/2016 22:17 [facility] ayla Koch R RT - 11/29/2016 8:16 [...] directions x Pharmacy list names: [facility] [place] (no fills since December 2015), [facility] x [employer] insurance reported information x Care [...] performed and electronically signed by Arthur Buckley, Decorating Instructor 14:10 Reviewed by Belem Nazario PharmD 11/29/2016 14:23 Bobby Mohamud si, MD - 11/28/2016 8:30 PM PDT . [facility] HOSPITALIST PROGRESS NOTE Patient: Sherron Patino : 1940: Age: 75 y.o. MedRec: [id number] PCP: Jared Hahn PA-C Admission date: 11/27/2016 [...] AM HISTORY: SHORTNESS OF BREATH. COMPARISON: None. [place] OTOCOL: Thin section axial images of the [...] embolism. A preliminary report was sent by [facility] with no significant discrepancy . Dictated and [...] as outlined above. Jefferson Doll 11/28/2016 20:30 [facility] Kanchan Holley P harmD - 11/27/2016 4:50 [...] CrCl cannot be calculated (Unknown ideal weight.). [place] weight= 45.5 kg (patient is 65% over [...] i, MD - 11/27/2016 8:38 AM PDT [facility] Pt. Name/Age/: Sherron Patino [...] She was seen in the ER in [place] and after some blood work and a chest x-ray she was told th at since she had medication at home, she should keep on taking them. SO she was discharged h ome from the ED. When she got home she had another episode OF laryngeal spasm so her daught er called EMT and she was taken back to the ED again at the [place]. Again she was dischar ged after a [...] shoulder pain COPD (chronic obstructive pulmonary disease) ([facility]) patient unware of diagnosis Degenerative joint disease [...] testing, and on further recommendations from the [facility] physicians involved in her care if any [...] signed by: Jefferson Doll MD 11/27/2016 8:38 [facility] Portions of this chart may have been created with [employer] voice recognition software. Occasi onal wrong-word or [...] | | | | | mg/dL | [facility] | | | | | | MEDICAL | | | | | | CENTER - | | | | | | LABORATORY | | + + + + + + | eGFR if not | >60Comment: GLOMERULAR | >=60 | [facility] | | | | FILTRATION | mL/min/1.73m2 | [facility] | | | FIJIAN | RATE,ESTIMATED | | MEDICAL | | | | mL/min/1.42q8Ngln than | | CENTER - | | [...] | | | | | mg/dL | [facility] | | | | | | MEDICAL [...] [address] | [place] | [phone] | | [facility] | | [address] | | | - LABORATORY | | [...] (H) | 4.0 - 11.0 K/uL | [facility] | | | | | | [facility] | | | | | | MEDICAL | | | | | | CENTER - | | | | | | LABORATORY | | + + + + + + | RBC | 4.87 | 3.70 - 5.20 | [facility] | | | | | M/uL | [facility] | | | | | | MEDICAL [...] + | [facility] | [address] | [place] | [phone] | | [facility] | | [address] | | | - LABORATORY | | [...] [address] | [place] | [phone] | | [facility] | | [address] | | | - LABORATORY | | [...] [address] | [place] | [phone] | | [facility] | | [address] | | | - LABORATORY | | [...] | 0.86 | 0.60 - 1.30 | [facility] | | | | | mg/dL | [facility] | | | | | | MEDICAL | | | | | | CENTER - | | | | | | LABORATORY | | + + + + + + | eGFR if not | >60Comment: GLOMERULAR | >=60 | [facility] | | | | FILTRATION | mL/min/1.73m2 | [facility] | | | FIJIAN | RATE,ESTIMATED | | MEDICAL | | | | mL/min/1.69a4Bsqt than | | CENTER - | | [...] | ine Ratio | | | [facility] | | | | | | MEDICAL [...] [address] | [place] | [phone] | | [facility] | | [address] | | | - LABORATORY | | [...] [address] | [place] | [phone] | | [facility] | | [address] | | | - LABORATORY | | [...] + + | Performing | Address | City/State/[facility] | Phone Number | | Organization | | | | + + + + + | [facility] | [address] | [place] | [phone] | | [facility] | | [address] | | | - LABORATORY | | [...] | | | | M/uL | [facility] | | | | | | MEDICAL [...] + | [facility] | [address] | [place] | [phone] | | [facility] | | [address] | | | - LABORATORY | | [...] | mL/min/1.73m2 | [facility] | | | FIJIAN | RATE,ESTIMATED | | MEDICAL | | | | mL/min/1.36h9Ldde than | | CENTER - | | [...] [address] | [place] | [phone] | | [facility] | | [address] | | | - LABORATORY | | [...] [address] | [place] | [phone] | | [facility] | | [address] | | | - LABORATORY | | [...] + | [facility] | [address] | [place] | [phone] | | [facility] | | [address] | | | - LABORATORY | | [...] + | [facility] | [address] | [place] | [phone] | | [facility] | | [address] | | | - LABORATORY | | [...] embolism. A preliminary report was sent by [facility] | | | Imaging with no significant [...] pulmonary embolism.A preliminary report was sent by [facility] with no | | significantdiscrepancy.Dictated and Signed [...] | |A preliminary report was sent by [facility] with no significant | |discrepancy. | | [...] [address] | [place] | [phone] | | [facility] | | [address] | | | - LABORATORY | | [...] + | [facility] | [address] | [place], [place] | [phone] | | [facility] | | [address] | | | - LABORATORY | | [...] [address] | [place] | [phone] | | [facility] | | [address] | | | - LABORATORY | | [...] | 1.01 | 0.60 - 1.30 | [facility] | | | | | mg/dL | [facility] | | | | | | MEDICAL | | | | | | CENTER - | | | | | | LABORATORY | | + + + + + + | eGFR if not | 53 (L)Comment: | >=60 | [facility] | | | | GLOMERULAR FILTRATION | mL/min/1.73m2 | [facility] | | | FIJIAN | RATE,ESTIMATED | | MEDICAL | | | | mL/min/1.50q9Mjhe than | | CENTER - | | [...] + | [facility] | [address] | [place] | [phone] | | [facility] | | [address] | | | - LABORATORY | | [...] [address] | [place] | [phone] | | [facility] | | [address] | | | - LABORATORY | | [...] [address] | [place] | [phone] | | [facility] | | [address] | | | - LABORATORY | | [...] + | [facility] | [address] | [place] | [phone] | | [facility] | | [address] | | | - LABORATORY | | [...] + | [facility] | [address] | [place] | [phone] | | [facility] | | [address] | | | - LABORATORY | | [...] dose, | | | YANETH ROBISON: swetha alamo, | | | | | + +---+ [...]
--- OUTSIDE RECORDS SUMMARY | ~2019-04-19 | XMS | Encounter Summary ---
Demographics + + + | Address | [address] | | | [place] [address] | + + + | Home Phone | | + + + | Preferred Language | Unknown | + + + | Marital Status | | + + + | Advent Affiliation | Unknown | + + + | Race | Unknown | + + + | Ethnic Group | Unknown | + + + Author + + + | Author | [facility] | | | and [place] | + + + | Organization | [facility] | | | and [place]ana [...] [place] | | | | | [address] | | + + + + + | Radha Patino | ECON | Unknown | | + + + + + Care Team Providers + +------+ + | Care Lean Coach Name | Role | Phone | + +------+ + PCP | Unavailable | + +------+ + Encounter Details +--------+ + + + + | Date | Type | Department | Care Team | Description | +--------+ + + + + | 09/02/ | Hospital | [facility] | Derick Zuniga | | | 2011 | Encounter | MED CTR XRAY [address] | F, MD [address] | | | | | [address] [place] | [address] [place], [place] | | | | | [place] [address] | [address] | | | | | [phone] | [phone] | | | | | | | [...] + + + | XR CERVICAL SPINE 1 | | 09/03/2011 | | Results for this | | VIEW | | 12:58 PM | | procedure are in the | | | | PDT | | results section. | + +--------+ + + + documented in this encounter Results XR Cervical Spine 1 Vw (09/03/2011 12:58 PM PDT) + + | Specimen | + + | | + + + + + | Narrative | Performed At | + + + | [facility] Diagnostic Imaging Department | CT [facility] | | [address] [facility] | [facility] | | TWO-VIEW CERVICAL SPINE SERIES: | DIAG IMG | | 09/03/2011 HISTORY: STATUS POST CERVICAL FUSION. | | | COMPARISON: Preoperative study 06/14/2011. FINDINGS: The | | | patient has undergone multilevel anterior cervical discectomy and | | | fusion from C5 through C7. Ventral fusion plate and screws and | | | intervertebral bone spaces are well-placed. Alignment is unremarkable | | | through the operated levels. There is stable minimal anterolisthesis | | | above the fusion at C4-5. There is stable prominence of the | | | prevertebral soft tissues at the lower cervical level. | | | IMPRESSION: 1. ACDF C5-C7. <Electronically Signed by Arthur Spring | | | MD Eliazar> 09/06/11 0844 | | + + + + + | Procedure Note | + + | Silvano Harris Conversion - 06/08/2013 5:16 PM [facility] | | Diagnostic Imaging Department | | [address] [facility] | | | | | | | | TWO-VIEW CERVICAL SPINE SERIES: 09/03/2011 | | | | HISTORY: STATUS POST CERVICAL FUSION. | | | | COMPARISON: Preoperative study 06/14/2011. | | | | FINDINGS: The patient has undergone multilevel anterior cervical discectomy | | and fusion from C5 through C7. Ventral fusion plate and screws and | | intervertebral bone spaces are well-placed. Alignment is unremarkable through | | the operated levels. There is stable minimal anterolisthesis above the fusion | | at C4-5. There is stable prominence of the prevertebral soft tissues at the | | lower cervical level. | | | | IMPRESSION: | | 1. ACDF C5-C7. | | <Electronically Signed by Arthur Perea MD> 09/06/11 0844 | + + + +---------+ + + [...]
--- OUTSIDE RECORDS SUMMARY | ~2019-04-19 | XMS | Encounter Summary ---
Demographics + + + | Address | [address] | | | [place] [address] | + + + | Home Phone | | + + + | Preferred Language | Unknown | + + + | Marital Status | | + + + | Voodoo Affiliation | Unknown | + + + | Race | Unknown | + + + | Ethnic Group | Unknown | + + + Author + + + | Author | [facility] | | | and [place] | + + + | Organization | [facility] | | | and [...] [place] | | | | | [address] | | + + + + + | Radha Patino | ECON | Unknown | | + + + + + Care Team Providers + +------+ + | Care Postal Inspector Name | Role | Phone | + +------+ + | Jared Hahn PA-C | PCP | | + +------+ + Reason for Visit + + + | Reason | Comments | + + + | Appointment | CONSULT | + + + Encounter Details +--------+ + + + + | Date | Type | Department | Care Team | Description | +--------+ + + + + | 05/03/ | Telephone | [facility] | Terry Dean, | Appointment | | 2014 | | PULMONARY [address] | MD [address] | (CONSULT) | | | | [place], | [place] | | | | | [place] [address] | [address] | | | | | [phone] | | | +--------+ + + + [...]
--- OUTSIDE RECORDS SUMMARY | ~2019-04-19 | XMS | Encounter Summary ---
Demographics + + + | Address | [address] | | | [place] [address] | + + + | Home Phone | | + + + | Preferred Language | Unknown | + + + | Marital Status | | + + + | Quaker Affiliation | Unknown | + + + | Race | Unknown | + + + | Ethnic Group | Unknown | + + + Author + + + | Author | [facility] | | | and [place] | + + + | Organization | [facility] | | | and [place] [...] [place] | | | | | [address] | | + + + + + | Radha Patino | ECON | Unknown | | + + + + + Care Team Providers + +------+ + | Care Cloud Automation Tester Name | Role | Phone | + [...] | | Pulmonology | persistent | PA-C [address] | [address] | | | | | asthma, | [place] | [place], | | | | | uncomplicate | WAY | [place] [address] | | | | | d | [place], | Phone: | | | | | Procedures | [place] [address] | [phone] | | | | | F/U | Phone: | Fax: | | | | | | [phone] | [phone] | | | | | | Fax: | | | | | | | [phone] | | +--------+--------+ + + + + Encounter Details +--------+---------+ + + + | Date | Type | Department | Care Team | Description | +--------+---------+ + + + | 07/19/ | Office | [facility] | Terry Dean, | Moderate persistent | | 2018 | Visit | PULMONARY [address] | MD [address] | asthma with acute | | | | [place], | [place] | exacerbation | | | | [place] [address] | [address] | (Primary Dx) | | | | [phone] | | | +--------+---------+ + + + [...] avoid any side effects. Talk to your rn ambulatory regarding the use of this medicine in children. Special care may be needed. What side effects may I notice from receiving this medicine? Side effects that you should report to your doctor or health hospice care sales consultant as soon as p ossible: allergic reactions [...] attention (report to your doctor or health hospice care sales consultant if they continue or are bothersome): confusion, [...] ta lk to your doctor or health hospice care sales consultant. You may need to miss a dose [...] if you have any of these conditions: Pawnee's syndrome diabetes glaucoma heart disease high blood [...] this medicine? Visit your doctor or health hospice care sales consultant for regular checks on your progress. If [...] have surgery, tell your doctor or health hospice care sales consultant that you hav e taken this medicine within the last twelve months. Ask your doctor or health hospice care sales consultant about your diet. You may need to lower the amou nt of salt you eat. This medicine may affect blood sugar levels. If you have diabetes, check with your doctor o r health hospice care sales consultant before you change your diet or the [...] 100 feet at their own pace on [facility] before becoming symptomatic. They are not exercising [...] shoulder pain COPD (chronic obstructive pulmonary disease) ([facility]) patient unware of diagnosis Degenerative joint [...]
--- OUTSIDE RECORDS SUMMARY | ~2019-04-19 | XMS | Encounter Summary ---
Demographics + + + | Address | [address] | | | [place] [address] | + + + | Home Phone | | + + + | Preferred Language | Unknown | + + + | Marital Status | | + + + | Yarsani Affiliation | Unknown | + + + | Race | Unknown | + + + | Ethnic Group | Unknown | + + + Author + + + | Author | [facility] | | | and [place] | + + + | Organization | [facility] | | | and [...] [place] | | | | | [address] | | + + + + + | Radha Patino | ECON | Unknown | | + + + + + Care Team Providers + +------+ + | Care Control Room Tender Name | Role | Phone | [...] [place] | | | | | [phone] | [place] [address] | | +--------+ + + + + [...] CHEST PA OR AP | Routin | 12/02/2016 | | Results for this | | | e | 12:30 PM | | procedure are in the | | | | PDT | | results section. | + +--------+ + + + documented in this encounter Results XR Chest PA or AP (12/02/2016 12:30 PM PDT) + + | Specimen | + + | | + + + + + | Narrative | Performed At | + + + | External films for comparison only - no result from [place]. | [facility] | + + + + +---------+ + + | Performing | Address | City/State/Zipcode | Phone Number | | Organization | | | | + +---------+ + + | [facility] | | | | + +---------+ + + documented in this encounter Visit Diagnoses Not on filedocumented in this encounter"
--- OUTSIDE RECORDS SUMMARY | ~2019-04-19 | XMS | Encounter Summary ---
Demographics + + + | Address | [address] | | | [place] [address] | + + + | Home Phone | | + + + | Preferred Language | Unknown | + + + | Marital Status | | + + + | Sikhism Affiliation | Unknown | + + + | Race | Unknown | + + + | Ethnic Group | Unknown | + + + Author + + + | Author | [facility] | | | and [place] | + + + | Organization | [facility] | | | and [...] [place] | | | | | [address] | | + + + + + | Radha Patino | ECON | Unknown | | + + + + + Care Team Providers + +------+ + | Care Plant Reliability Engineer Name | Role | Phone | + +------+ + PCP | Unavailable | + +------+ + Encounter Details +--------+ + + + + | Date | Type | Department | Care Team | Description | +--------+ + + + + | 06/16/ | Hospital | [facility] | | | | 2006 | Encounter | MED CTR XRAY [address] | | | | | | [address] | | | | | | [place] [address] | | | | | | [phone] | | | +--------+ + + + [...]
--- OUTSIDE RECORDS SUMMARY | ~2019-04-19 | XMS | Encounter Summary ---
Demographics + + + | Address | [address] | | | [place] [address] | + + + | Home Phone | | + + + | Preferred Language | Unknown | + + + | Marital Status | | + + + | Advent Affiliation | Unknown | + + + | Race | Unknown | + + + | Ethnic Group | Unknown | + + + Author + + + | Author | [facility] | | | and [place] | + + + | Organization | [facility] | | | and [place] | [...] [place] | | | | | [address] | | + + + + + | Radha Patino | ECON | Unknown | | + + + + + Care Team Providers + +------+ + | Care Compensation Manager Name | Role | Phone | + +------+ + | Jared Hahn PA-C | PCP | | + +------+ + Encounter Details +--------+ + + + + | Date | Type | Department | Care Team | Description | +--------+ + + + + | 05/07/ | Abstract | [facility] | Terry Dean, | COPD (chronic | | 2015 | | PULMONARY [address] | MD [address] | obstructive | | | | [place], | [place], [place] | pulmonary disease) | | | | [place] [address] | [address] | (HCC) (Primary Dx) | | | | [phone] | | | +--------+ + + + [...]
--- OUTSIDE RECORDS SUMMARY | ~2019-04-19 | XMS | Encounter Summary ---
Demographics + + + | Address | [address] | | | [place] [address] | + + + | Home Phone [...] + | Author | [facility] | | | and Kemarana | + + + | Organization | [facility] | | | and [...] [place] | | | | | [address] | | + + + + + | Radha Patino | ECON | Unknown | | + + + + + Care Team Providers + +------+ + | Care Straddle Bug Name | Role | Phone | + [...] | 05/03/ | Telephone | [facility] [place] | Terry Dean, | Appointment | | 2014 | | PULMONARY [address] | MD [address] | (CONSULT) | | | | [place], | [place] | | | | | [place] [address] | [address] | | | | | [phone] | | | +--------+ + + + [...]
--- OUTSIDE RECORDS SUMMARY | ~2019-04-19 | XMS | Clinical Summary ---
Demographics + + + | Address | [address] | | | [place] [address] | + + + | Home Phone | | + + + | Preferred Language | Unknown | + + + | Marital Status | Single | + + + | Anabaptist Affiliation | Unknown | + + + | Race | Unknown | + + + | Ethnic Group | Unknown | + + + Author + + + | Author | [facility] (Historical as of | | | 12-16-18) | + + + | Organization | [facility] (Historical as of | | | 12-16-18) | + + + | Address | Unknown | + + + | Phone | Unavailable | + + + Support + + +---------+ + | Name | Relationship | Address | Phone | + + +---------+ + | Radha Patino | ECON | Unknown | | + + +---------+ + Care Team Providers + +------+ + | Care Tobacco Dipper Name | Role | Phone | + +------+ + | Davi Harding MD | PP | | + +------+ + Allergies Not on File Current Medications Not on file Active Problems Not on file Social History + +-------+ +--------+------+ | Tobacco [...] on file | | + + + Plan of Treatment Not on file Results Not on filefrom Last 3 Months"
--- OUTSIDE RECORDS SUMMARY | ~2019-04-19 | XMS | Encounter Summary ---
Demographics + + + | Address | [address] | | | [place] [address] | + + + | Home Phone | | + + + | Preferred Language | Unknown | + + + | Marital Status | | + + + | Restorationist Affiliation | Unknown | + + + | Race | Unknown | + + + | Ethnic Group | Unknown | + + + Author + + + | Author | [facility] | | | and Kemarana | + + + | Organization | [facility] | | | and [...] [place] | | | | | [address] | | + + + + + | Radha Patino | ECON | Unknown | | + + + + + Care Team Providers + +------+ + | Care Concrete Precast [place]oulder Name | Role | Phone | + +------+ + | Jared Hahn PA-C | PCP | | + +------+ + Encounter Details +--------+ + + + + | Date | Type | Department | Care Team | Description | +--------+ + + + + | 12/02/ | Imaging | [facility] | Provider, | | | 2017 | Exam | MED CTR EXTERNAL | [place] [address] | | | | | IMAGING | Fang [place]IE | | | | | [phone] | [place] [address] | | +--------+ + + + + [...] XR CHEST 2 VIEWS | Routin | 11/26/2016 | | Results for this | | | e | 4:55 PM | | procedure are in the | | | | PDT | | results section. | + +--------+ + + + documented in this encounter Results XR Chest 2 VW (11/26/2016 4:55 PM PDT) + + | Specimen | [...]
--- OUTSIDE RECORDS SUMMARY | ~2019-04-19 | XMS | Clinical Summary ---
Demographics + + + | Address | [address] | | | [place] [address] | + + + | Home Phone | | + + + | Preferred Language | Unknown | + + + | Marital Status | Single | + + + | Scientologist Affiliation | Unknown | + + + | Race | Unknown | + + + | Ethnic Group | Unknown | + + + Author + + + | Author | [facility] (Historical as of | | | 12-16-18) | + + + | Organization | [facility] (Historical as of | | | 12-16-18) [...] Team Providers + +------+ + | Care Client Account Representative Name | Role | Phone | + [...]
--- OUTSIDE RECORDS SUMMARY | ~2019-04-19 | XMS | Encounter Summary ---
Demographics + + + | Address | [address] | | | [place] [address] | + + + | Home Phone | | + + + | Preferred Language | Unknown | + + + | Marital Status | | + + + | Presybeterian Affiliation | Unknown | + + + | Race | Unknown | + + + | Ethnic Group | Unknown | + + + Author + + + | Author | [facility] | | | and [place] | + + + | Organization | [facility] | | | and [...] [place] | | | | | [address] | | + + + + + | Radha Patino | ECON | Unknown | | + + + + + Care Team Providers + +------+ + | Care Upper Shaper Name | Role | Phone | + [...] | | Pulmonology | obstructive | PA-C [address] | [address] | | | | | pulmonary | [place] | [place], | | | | | disease, | WAY | [place] [address] | | | | | unspecified | [place], | Phone: | | | | | ([facility]) | [place] [address] | [phone] | | | | | Procedures | Phone: | Fax: | | | | | F/U | [phone] | [phone] | | | | | | Fax: | | | | | | | [phone] | | +--------+--------+ + + + + Encounter Details +--------+---------+ + + + | Date | Type | Department | Care Team | Description | +--------+---------+ + + + | 01/18/ | Office | [facility] | Terry Dean, | Moderate persistent | | 2017 | Visit | PULMONARY [address] | MD [address] | asthma without | | | | [place], | [place], [place] | complication | | | | [place] [address] | [address] | (Primary Dx) | | | | [phone] | | | +--------+---------+ + + + [...] more than every 4 hours, contact your [facility] provider or seek immediate medical attention. [...] not already have one, talk to your [facility] provider about developing a personalized "Asthma [...] turning garvin or blue Date Last Reviewed: 04/02/201519992471-8334 [employer]. [address] [place] [address], [place] [id number]. All righ ts reserved. This information is [...] shoulder pain COPD (chronic obstructive pulmonary disease) ([facility]) patient unware of diagnosis Degenerative [...] the strength of her Dulera. Lastly Ms. Patino plans to receive a seasonal influenza vaccination at [facility] within the next several weeks. Plan 1. [...]
--- OUTSIDE RECORDS SUMMARY | ~2019-04-19 | XMS | Encounter Summary ---
Demographics + + + | Address | [address] | | | [place] [address] | + + + | Home Phone | | + + + | Preferred Language | Unknown | + + + | Marital Status | | + + + | Jain Affiliation | Unknown | + + + | Race | Unknown | + + + | Ethnic Group | Unknown | + + + Author + + + | Author | [facility] | | | and Kemarana | + + + | Organization | [facility] | [...] [place] | | | | | [address] | | + + + + + | Radha Patino | ECON | Unknown | | + + + + + Care Team Providers + +------+ + | Care Wireline Supervisor Name | Role | Phone | + +------+ + | Jared Hahn PA-C | PCP | | + +------+ + Encounter Details +--------+ + + + + | Date | Type | Department | Care Team | Description | +--------+ + + + + | 05/29/ | Abstract | [facility] [place] | Terry Dean, | | | 2014 | | PULMONARY [address] | MD [address] | | | | | [place], | [place], [place] | | | | | [place] [address] | [address] | | | | | [phone] | | | +--------+ + + + [...]
--- OUTSIDE RECORDS SUMMARY | ~2019-04-19 | XMS | Encounter Summary ---
Demographics + + + | Address | [address] | | | [place] [address] | + + + | Home Phone | | + + + | Preferred Language | Unknown | + + + | Marital Status | | + + + | Orthodoxy Affiliation | Unknown | + + + | Race | Unknown | + + + | Ethnic Group | Unknown | + + + Author + + + | Author | [facility] | | | and Kemarana | + + + | Organization | [facility] | | | and [place] [...] [place] | | | | | [address] | | + + + + + | Radha Patino | ECON | Unknown | | + + + + + Care Team Providers + +------+ + | Care Training Coordinator Name | Role | Phone | + +------+ + PCP | Unavailable | + +------+ + Encounter Details +--------+ + + + + | Date | Type | Department | Care Team | Description | +--------+ + + + + | 09/02/ | Hospital | [facility] | Derick Zuniga | | | 2011 | Encounter | MED CTR XRAY [address] | F, MD [address] | | | | | [place] | [place], [place] | | | | | [place] [address] | [address] | | | | | [phone] | [phone] | | | | | | | [...] Performed At | + + + | [facility] Diagnostic Imaging Department | ID MAI | | [address] [facility] | [facility] | | TWO-VIEW CERVICAL SPINE [...] Silvano Harris Conversion - 06/08/2013 5:16 PM [facility] | | Diagnostic Imaging Department | | [address] [facility] | | | | | | [...]
--- OUTSIDE RECORDS SUMMARY | ~2019-04-19 | XMS | Encounter Summary ---
Demographics + + + | Address | [address] | | | [place] [address] | + + + | Home Phone | | + + + | Preferred Language | Unknown | + + + | Marital Status | | + + + | Faith Affiliation | Unknown | + + + | Race | Unknown | + + + | Ethnic Group | Unknown | + + + Author + + + | Author | [facility] | | | and [place]ana | + + + | Organization | [facility] [...] [place] | | | | | [address] | | + + + + + | Radha Patino | ECON | Unknown | | + + + + + Care Team Providers + +------+ + | Care Travel Administrator Name | Role | Phone | + +------+ + PCP | Unavailable | + +------+ + Encounter Details +--------+ + + + + | Date | Type | Department | Care Team | Description | +--------+ + + + + | 07/20/ | Hospital | [facility] | Derick Zuniga | | | 2011 - | Encounter | MED CTR SURGICAL | MD [address] | | | | | [address] [place] | [address] [place] | | | 07/21/ | | [place] [address] | [address] | | | 2011 | | [phone] | [phone] | | | | | | | [...] Performed At | + + + | [facility] Diagnostic Imaging Department | [facility] | | [address] [facility] | [facility] | | LATERAL VIEW CERVICAL SPINE | [...] Transcribed | | | Date/Time: 07/22/2011 11:27 Frame And Scrap Crusher: | | | <Electronically Signed by Cesar Thomson MD> 07/22/11 1504 | | + + + + + | Procedure Note | + + | Steven, Rad Conversion - 06/08/2013 4:58 PM [facility] | | Diagnostic Imaging Department [address] [facility] | | LATERAL VIEW CERVICAL SPINE CLINICAL [...] 11:12 | |Transcribed Date/Time: 07/22/2011 11:27 | |Frame And Scrap Crusher: | |<Electronically Signed by Cesar Thomson MD> [...]
--- OUTSIDE RECORDS SUMMARY | ~2019-04-19 | XMS | Encounter Summary ---
Demographics + + + | Address | [address] | | | [place] [address] | + + + | Home Phone | | + + + | Preferred Language | Unknown | + + + | Marital Status | | + + + | Sikh Affiliation | Unknown | + + + | Race | Unknown | + + + | Ethnic Group | Unknown | + + + Author + + + | Author | [facility] | | | and Kemarana | + + + | Organization | [facility] | | | and [...] [place] | | | | | [address] | | + + + + + | Radha Patino | ECON | Unknown | | + + + + + Care Team Providers + +------+ + | Care Mop Maker Name | Role | Phone | + +------+ + PCP | Unavailable | + +------+ + Encounter Details +--------+ + + + + | Date | Type | Department | Care Team | Description | +--------+ + + + + | 06/16/ | Hospital | [facility] | | | | 2006 | Encounter | MED CTR XRAY [address] | | | | | | [address] | | | | | | [place] [address] | | | | | | [phone] | | | +--------+ + + + [...]
--- OUTSIDE RECORDS SUMMARY | ~2019-04-19 | XMS | Encounter Summary ---
Demographics + + + | Address | [address] | | | [place] [address] | + + + | Home Phone | | + + + | Preferred Language | Unknown | + + + | Marital Status | | + + + | Hoahaoism Affiliation | Unknown | + + + | Race | Unknown | + + + | Ethnic Group | Unknown | + + + Author + + + | Author | [facility] | | | and Kemarana | + + + | Organization | [facility] | | | and [...] [place] | | | | | [address] | | + + + + + | Radha Patino | ECON | Unknown | | + + + + + Care Team Providers + +------+ + | Care Guyline Operator Name | Role | Phone | [...] | | Procedures | [place] | [facility] [place] | | | | | [place] | [facility] | [address] Phone: | | | | | &/SENS 1-2 | [address] | [phone] | | | | | NRV CNDJ | Phone: | Fax: | | | | | PRECONF | [phone] | [phone] | | | | | [place] | Fax: | | | | | | EMG-left | [phone] | | | | | | wrist, [...] | (Primary Dx); | | | | [place], | [facility] [place] | Paresthesias in left | | | | [place] [address] | [address] | hand | | | | [phone] | | | +--------+ + + + [...] Ac MD - 01/07/2014 6:34 PM PDT [facility] Musculoskeletal, Sports and Spine, Physiatry [address] [address] Test Date: 01/07/2014 Patient Name: Sherron Patino : 1940 Physician: Farhan Ac MD MR #: [id number] Sex: Female Referring Physician: Arcenio Hahn PA-C [...] hesitate to call. Farhan Ac MD Fellow, [employer]. documented [...]
--- OUTSIDE RECORDS SUMMARY | ~2019-04-19 | XMS | Encounter Summary ---
Demographics + + + | Address | [address] | | | [place] [address] | + + + | Home Phone | | + + + | Preferred Language | Unknown | + + + | Marital Status | | + + + | Voodoo Affiliation | Unknown | + + + | Race | Unknown | + + + | Ethnic Group | Unknown | + + + Author + + + | Author | [facility] | | | and [place]ana | + + + | Organization | [facility] | | | and [...] [place] | | | | | [address] | | + + + + + | Radha Patino | ECON | Unknown | | + + + + + Care Team Providers + +------+ + | Care Aircraft Launch And Recovery Technician Name | Role | Phone | + +------+ + PCP | Unavailable | + +------+ + Encounter Details +--------+ + + + + | Date | Type | Department | Care Team | Description | +--------+ + + + + | 12/19/ | Hospital | [facility] | | | | 1998 | Encounter | MED CTR EMERGENCY | | | | | | CENTER [address] | | | | | | [place] | | | | | | [address] | | | | | | [phone] | | | +--------+ + + + [...]
--- OUTSIDE RECORDS SUMMARY | ~2019-04-19 | XMS | Encounter Summary ---
Demographics + + + | Address | [address] | | | [place] [address] | + + + | Home Phone | | + + + | Preferred Language | Unknown | + + + | Marital Status | | + + + | Evangelical Affiliation | Unknown | + + + | Race | Unknown | + + + | Ethnic Group | Unknown | + + + Author + + + | Author | [facility] | | | and [place] | + + + | Organization | [facility] | | | and [place] [...] [place] | | | | | [address] | | + + + + + | Radha Patino | ECON | Unknown | | + + + + + Care Team Providers + +------+ + | Care Machine Heel Builder Name | Role | Phone | + [...] [address] | | | | | [place], | [place], [place] | | | | | [place] [address] | [address] | | | | | [phone] | | | +--------+ + + + [...]
--- OUTSIDE RECORDS SUMMARY | ~2019-04-19 | XMS | Encounter Summary ---
Demographics + + + | Address | [address] | | | [place] [address] | + + + | Home Phone | | + + + | Preferred Language | Unknown | + + + | Marital Status | | + + + | Episcopalian Affiliation | Unknown | + + + | Race | Unknown | + + + | Ethnic Group | Unknown | + + + Author + + + | Author | [facility] | | | and [place] | + + + | Organization | [facility] | | | and [place] [...] [place] | | | | | [address] | | + + + + + | Radha Patino | ECON | Unknown | | + + + + + Care Team Providers + +------+ + | Care Casing Man Name | Role | Phone | + [...] [address] [place] | | | | | [phone] | [place] [address] | | +--------+ + + + + [...]
--- OUTSIDE RECORDS SUMMARY | ~2019-04-19 | XMS | Encounter Summary ---
Demographics + + + | Address | [address] | | | [place] [address] | + + + | Home Phone | | + + + | Preferred Language | Unknown | + + + | Marital Status | | + + + | Nondenominational Affiliation | Unknown | + + + | Race | Unknown | + + + | Ethnic Group | Unknown | + + + Author + + + | Author | [facility] | | | and [place] | + + + | Organization | [facility] | | | [...] [place] | | | | | [address] | | + + + + + | Radha Patino | ECON | Unknown | | + + + + + Care Team Providers + +------+ + | Care Sanitary Landfill Supervisor Name | Role | Phone | [...] [address] [place] | | | | | [phone] | [place] [address] | | +--------+ + + + + [...]
--- OUTSIDE RECORDS SUMMARY | ~2019-04-19 | XMS | Encounter Summary ---
Demographics + + + | Address | [address] | | | [place] [address] | + + + | Home Phone | | + + + | Preferred Language | Unknown | + + + | Marital Status | | + + + | Samaritan Affiliation | Unknown | + + + | Race | Unknown | + + + | Ethnic Group | Unknown | + + + Author + + + | Author | [facility] | | | and [place] | + + + | Organization | [facility] | | | and [...] [place] | | | | | [address] | | + + + + + | Radha Patino | ECON | Unknown | | + + + + + Care Team Providers + +------+ + | Care Roller Repairer Name | Role | Phone | + [...] [address] [place] | | | | | [phone] | [place] [address] | | +--------+ + + + + [...] for comparison only - no result from [place]. | [facility] | + + + + +---------+ + + | Performing | Address | City/State/Zipcode | Phone Number | | Organization | | | | + +---------+ + + | [facility] | | | | + +---------+ + + documented in this encounter Visit Diagnoses Not on filedocumented in this encounter"
--- OUTSIDE RECORDS SUMMARY | ~2019-04-19 | XMS | Encounter Summary ---
Demographics + + + | Address | [address] | | | [place] [address] | + + + | Home Phone | | + + + | Preferred Language | Unknown | + + + | Marital Status | | + + + | Congregation Affiliation | Unknown | + + + | Race | Unknown | + + + | Ethnic Group | Unknown | + + + Author + + + | Author | [facility] | | | and [place] | + + + | Organization | [facility] | | | and [...] [place] | | | | | [address] | | + + + + + | Radha Patino | ECON | Unknown | | + + + + + Care Team Providers + +------+ + | Care Bin Filler Name | Role | Phone | + [...] [address] [place] | | | | | [phone] | [place] [address] | | +--------+ + + + + [...] for comparison only - no result from [place]. | [facility] | + + + + +---------+ + + | Performing | Address | City/State/Zipcode | Phone Number | | Organization | | | | + +---------+ + + | [facility] | | | | + +---------+ + + documented in this encounter Visit Diagnoses Not on filedocumented in this encounter"
[~2019-04-19 13:35] MED LIST changes: +CEPHALEXIN500 MG PO; +DULERA 200 MCG/13 GM INH; +IPRAT-ALBUT 0.5-3 ML INH; +PEPCID20 MG PO; +XANAX0.25 MG PO; +ZOFRAN ODT4 MG PO
--- OUTSIDE RECORDS SUMMARY | 2019-04-19 13:38 | XMS ---
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 Care History Medical/Surgical 03/21/2018 [facility] \T\middot;\T\nbsp; PATIENT IS A [facility] MEMBER. \T\middot;\T\nbsp; PLEASE REFER PATIENT TO [facility] FOR NON EMERGENT MEDICAL NEEDS. \T\middot;\ T\nbsp; [facility] CAN SEE PATIENTS SAME DAY FOR APTS IF PATIENT CALLS FIRST THING IN THE MORNING. E.D. VISIT COUNT (12 MO.) 1 L[facility] TOTAL 1 NOTE: Visits indicate total known visits. ED/UCC VISIT TRACKING (12 MO.) 04/19/2019 13:36 [facility] [place] TYPE: Emergency COMPLAINT: - BACK PAIN INPATIENT VISIT TRACKING (12 MO.) No inpatient visits to display in this time frame [email or web address]
--- NOTE | 2019-04-19 15:54 | EKG ---
[facility] [address] [facility] [place] [address] Signed Sinus tachycardia Inferior infarct , age undetermined Anterior infarct , age undetermined ST \T\ T wave abnormality, consider lateral ischemia Abnormal ECG When compared with ECG of 21-MAR-2018 04:30, Inferior infarct is now present Nonspecific T wave abnormality no longer evident in Inferior leads Confirmed by ANGEL ARCHULETA DO ([id number]) on 04/19/2019 3:53:56 PM Electronically Signed By: ANGEL ARCHULETA DO 04/19/19 1554 PATIENT NAME: WM BARGER Electrocardiogram DATE OF : 40 PHYSICIAN: ANGEL ARCHULETA DO REPORT #: [id number] REPORT IS CONFIDENTIAL AND NOT TO BE RELEASED WITHOUT AUTHORIZATION
== END 2019-04-19 17:09 | disposition home or self-care (01) ==
LOC: ED 13:35
DX: R07.9 Chest pain, unspecified (principal); M54.9 Dorsalgia, unspecified; J44.9 Chronic obstructive pulmonary disease, unspecified; Z87.891 Personal history of nicotine dependence
CPT/HCPCS: 71045; 71275; 74174; 80053; 83735; 84484; 85025; 85379; 93005; 93010; 99285-25; J2060; Q9967

== ENCOUNTER 2019-12-03 07:00 | Day surgery (SDC) | payer MEDICARE, OTHER ==
--- NOTE | 2019-11-27 12:36 | NUR ---
PATIENT SEEN TODAY FOR RT TKA PREADMISSION, SURGERY DATE 12/03/19. PATIENT REPORTS LIVING IN SINGLE STORY HOME WITH NO STAIRS INSIDE, [address] WITH NO RAILING. PATIENT REPORTS SHE LIVES WITH SON, DAUGHTER LIVES DOWN THE ROAD, AND A SISTER THAT LIVES ON THE SAME BLOCK. PATIENT REPORTS SHE HAS FWW WITH CHAIR SEAT, INFORMED TO BRING IN ON DAY OF SURGERY, VERBALIZED UNDERSTANDING. REPORTS TUB/SHOWER COMBO WITH RAIL, SHOWER CHAIR, AND IN THE PROCESS OF GETTING HAND-HELD SHOWER HEAD. DENIES NEED FOR TOILET SEAT RISER. PATIENT STATES SHE WOULD LIKE TO HAVE P/T AT [facility] OUT[facility]. [facility] NEEDS. PHONE CALL TO P/T AND SPOKE WITH [facility], [facility] APPOINTMENT SCHEDULED FOR 12/10/19 AT 11PM, PATIENT CONFIRMED APPOINTMENT AND CONTACT INFORMATION. DENIES NEED FOR HOME HEALTH. PATIENT STATES HER DAUGHTER WILL BRING HER IN ON DAY OF SURGERY TO PROVIDE TRANSPORATION. REPORTS SON AND ADDITIONAL FAMILY MEMBERS WILL ASSIST AFTER DISCHARGE HOME. EDUCATION PROVIDED ON FALL PREVENTION AND PREPARING HOME FOR SAFETY, PT AGREEABLE AND STATES THEY ARE "CLEARING OUT THE CLUTTER."
[~2019-12-03] VITALS: Ht 149.9 cm; Wt 74.8 kg
[~2019-12-03 07:00] MED LIST changes: +CLARITIN10 M2 PO; +FLONASE ALLERG9.9 ML NAS
--- NOTE | 2019-12-03 08:08 | NUR ---
PRE PROCEDURE NASAL SWABS AND MOUTH WASH USED.
--- NOTE | 2019-12-03 13:12 | NUR ---
PT IS ALERT, ORIENTED AND SEEMS SOMEWHAT ANXIOUS, NERVOUS. PT HAD NUMEROUS QUESTIONS ABOUT [facility], STAFF-QUESTIONS ASKED WERE ANSWERED. PT REQUESTED PRAYER AND WILL FOLLOW
--- NOTE | 2019-12-03 13:52 | NUR ---
12/03/19 1352 Rosalia Bender 1314 PT ARRIVED IN PACU NON RESPONSIVE TO NOXIOUS STIMULI. 1320 PT REACTIVE. FALLS ASLEEP WHEN NOT STIMULATED. CRYO CUFF PLACED ON R KNEE. 1330 RESTING. REU. 1345 AWAKENS TO VERBAL STIMULI. OXYGEN REMOVED. SATS 94% ON RA. NO C/O'S.
--- NOTE | 2019-12-03 14:56 | NUR ---
REPORT FROM ELAINA HOLT. 1500 PT RESTING IN BED AND WAKES EASILY TO VERBAL STIMULI. PT REPORTS 3/10 PAIN AND TOLERABLE AT THIS TIME. PLAN OF CARE DISCUSSED. PT RESTING IN BED CALL LIGHT WITHIN REACH.
--- NOTE | 2019-12-03 15:37 | NUR ---
1520 FOOD ORDERED AND PT SITTING IN SEMI FOWLERS AND EATING AND DRINKING. VSS. PT REPORTS FEELING MORE AWAKE. PAIN INCREASED TO 4/10.
--- NOTE | 2019-12-03 16:50 | NUR ---
PHYSICAL THERAPY IN PT ROOM, STATES PT INCONTINENT OF URINE BED SOILED WHEN PT SAT UP AT SIDE OF BED.
--- NOTE | 2019-12-03 17:51 | NUR ---
PT TO [facility] VIA STRETCHER TRANSFERS TO BED. PT REQUESTS SYMBACORT FROM HOME STATING SHE DIDN'T EXPECT TO BE HERE OVER NIGHT. CONTACTED DR GRANT HE SAYS THAT WILL BE FINE IF DAUGHTER BRINGS PT'S 2 PUFFERS SHE NORMALLY DOES EACH EVENING. PT ALERT AND FRIENDLY AGREES SHE IS COMFORTABLE DENIES NEEDS OF. FRESH H20 AT BEDSIDE CRYO IN PLACE AND SCD'S. ORIENTED TO ROOM AND CALL SYSTEM.
--- NOTE | 2019-12-03 18:51 | NUR ---
PT UPBEAT AND TALKATIVE. EVENING MEAL PROVIDED. DAUGHTER IS PRESENT IN THE ROOM QUESTIONS OR CONCERNS DENIED
--- NOTE | 2019-12-03 19:30 | NUR ---
BEDSIDE REPORT RECEIVED FROM ELAINA MONDRAGON. pt SITTING UP IN BED EATING SALAD. NO REQUESTS AT THIS TIME. FAMILY AT BEDSIDE. CALL LIGHT IN REACH.
--- NOTE | 2019-12-03 20:40 | NUR ---
pt ASSESSMENT COMPLETE. SCANT DRAINAGE ON HELEN, FLASHING GREEN LIGHT. NUMBNESS BILATERALLY FEET, SENSATION BILATERALLY SHINS, pt DENIES PAIN. SCHEDULED MEDICATIONS ADMINISTERED. TESSA HOSE, CRYO CUFF WITH ICE IN PLACE, VFPs ON. 2PA WITH FWW TO RESTROOM FOR 100 ML VOID, INCONTINENCE IN ATTENDS. CALL LIGHT IN REACH. ICE WATER PROVIDED.
--- NOTE | 2019-12-03 22:59 | NUR ---
IN pt ROOM FOR SCHEDULED MEDICATION ADMINISTRATION. pt DENIES ANY PAIN. CRYO CUFF, TESSA [place], VENOUS FOOT PUMPS ON. CALL LIGHT IN REACH. pt AWAKE, WATCHING TV.
--- NOTE | 2019-12-04 01:05 | NUR ---
CALL LIGHT ANSWERED. SBA WITH FWW TO RESTROOM FOR VOID, INCONTINENCE OF URINE. ATTENDS CHANGED. pt BACK IN BED, CYRO CUFF REFILLED. pt STATES SENSATION NOW INTACT BILATERALLY FEET. CALL LIGHT IN REACH. VFPs ON.
--- NOTE | 2019-12-04 02:30 | NUR ---
SCHEDULED MEDICATIONS ADMINISTERED. pt DENIES ANY PAIN. SENSATION INTACT BLE. SMALL AMT SANGUINOUS DRAINAGE ON HELEN DRESSING, FLASHING GREEN LIGHT, ON Q PUMP TO 2ML/HR. pt DROWSY, REQUESTING TO SLEEP. IV SL. ICE WATER PROVIDED. CRYO WITH TESSA MERRITT, VFPs ON. CALL LIGHT IN REACH.
--- NOTE | 2019-12-04 06:18 | NUR ---
pt UP IN CHAIR, RATES PAIN 2/10 IN RIGHT KNEE. SCHEDULED TYLENOL ADMINISTERED. "IT'S NOT A PAIN, PAIN, JUST SORE FEELING". CRYO CUFF REFILLED WITH ICE AND IN PLACE. SBA WITH FWW TO RESTROOM WITH ELAINA WILSON. VSS. BREAKFAST ORDER TAKEN. CALL LIGHT IN REACH.
--- NOTE | 2019-12-04 07:06 | OR ---
[facility] [address] [facility] [place], [place] [address] Signed DATE OF OPERATION: 12/03/2019 SURGEON: Tiki Hackett MD PREOPERATIVE DIAGNOSIS: Degenerative joint disease severe, right knee. POSTOPERATIVE DIAGNOSIS: Degenerative joint disease severe, right knee. PROCEDURE PERFORMED: Right total knee arthroplasty with Gerald. TRACK GRINDER: 1. Erika Farnsworth PA-C. 2. Clinical PAS. Erika was present and critical for all portions of the procedure. ANESTHESIA: Spinal. BLOOD LOSS: 200 mL. TOURNIQUET TIME: Zero. IMPLANTS: [place] Tri[employer]lon size 2 femur, size 1 tibia, 9 mm poly, and a 29 mm patella. BRIEF HISTORY: Sherron is a 78-year-old female with pain in her knee. She had injections bracing and anti-inflammatories without substantial relief. Risks and benefits of operative treatment discussed with her. She understands and wished to proceed. DESCRIPTION OF PROCEDURE: Once consent was obtained, she was taken to the operating room. After adequate anesthesia, she was placed on operating table. All downside pressure points were well padded. The right knee was prepped and draped in a standard sterile fashion. Standard anterior approach through a longitudinal incision was taken through skin and Electronically Signed By: TIKI HACKETT MD 12/04/19 0706 PATIENT NAME: SHERRON BARGER OPERATIVE REPORT DATE OF : 40 REPORT #: [id number] PHYSICIAN: TIKI HACKETT MD PCP: MOE PATEL REPORT IS CONFIDENTIAL AND NOT TO BE RELEASED WITHOUT AUTHORIZATION [facility] [address] [place], [place] [address] Signed subcutaneous tissue. A subvastus approach was taken and the superior capsule was released. The anterior horns of the menisci were transected. The ACL was transected. The PCL was left intact. The arrays were then placed next. We placed the femoral array intra-articularly in the medial condyle. The tibial array was placed three fingerbreadths below the tuberosity and bicortical. The leg was then registered with the computer and the checkpoints were gone through with the . Once this was completed, varus and valgus stress poses were taken and the plan was adjusted to lower the tibia 1 mm and had a little bit of valgus to the femur. The location with the femur was approximately 1 mm. The Gerald robot was then brought in and the surrounding soft tissue was protected and all cuts were made with the Gerald. Once this was completed, the bone fragments removed. The posterior release was performed on the femur. Posterior osteophytes removed. The trials were then positioned, the knee was taken through range of motion and under the Gerald, it was found to be in anatomic alignment with less than 1 mm plate. The distal femoral drill holes were made, the patella was cut, sized and drilled for 29 mm patella. The tibia was finished using the keel punch. Because of the softness of her bone, we elected to use a hybrid prosthesis. The bone was pulse lavaged and packed with dry Ray-Thien. The cement was mixed. When it reached proper consistency, it was placed on the tibia and patella. The tibia was impacted in position first and the excess cement was removed. The polyethylene was then snapped into position, the femur was impacted. There was excellent fixation on the femoral side. The patella was then clamped into position. Again, all extra cement was removed. The cement was allowed to harden. Once it hardened sufficiently, the knee was flexed and any remaining overflow was removed. The On-Q pain pump was placed percutaneously in the adductor canal from the suprapatellar pouch. The periarticular soft tissues were injected with 90 mL ropivacaine-Toradol mixture. The arthrotomy was then closed after irrigation using 3 L of antibiotics. The arthrotomy was then closed using #2 Stratafix, subcutaneous tissue with #0 Stratafix, and skin with med. The wounds were dressed with a HELEN wound VAC dressing, ABD, and Cornel wrap. She was awakened and taken to the recovery room in satisfactory condition. All sponge, needle, and instrument counts were correct. Tiki Hackett MD BA/MODL /[id number] Electronically Signed By: TIKI HACKETT MD 12/04/19 0706 PATIENT NAME: SHERRON BARGER OPERATIVE REPORT DATE OF : 40 REPORT #: [id number] PHYSICIAN: TIKI HACKETT MD PCP: MOE PATEL REPORT IS CONFIDENTIAL AND NOT TO BE RELEASED WITHOUT AUTHORIZATION [address] [address] Signed Copies: ~ Electronically Signed By: TIKI HACKETT MD 12/04/19 0706 PATIENT NAME: SHERRON BARGER OPERATIVE REPORT DATE OF : 40 REPORT #: [id number] PHYSICIAN: TIKI HACKETT MD PCP: MOE PATEL REPORT IS CONFIDENTIAL AND NOT TO BE RELEASED WITHOUT AUTHORIZATION
[2019-12-04] MEDS ORDERED: GABAPENTIN300 MG PO (07:23)
[2019-12-04] MEDS ORDERED: ASPIRIN EC325 MG PO (07:23)
[2019-12-04] MEDS ORDERED: HYDROMORPHONE HC4 MG PO (07:24)
[2019-12-04] MEDS ORDERED: SENNA LAX8.6 MG PO (07:24)
--- NOTE | 2019-12-04 07:56 | NUR ---
Pt sitting up in chair, a&ox4, respirations even and non labored, no distress noted. Pt states she recently ordered breakfast. No reported pain and or distress at this time. Dr. Realds in to see pt at this time and reported that he increased the On-Q pump to 4 at this time. Dressing to right knee is CDI, ice in use. No needs at this time.
--- NOTE | 2019-12-04 08:37 | NUR ---
PATIENT UP IN CHAIR. PLAN TO DO AM CARE AFTER BREAKFAST. CALL LIGHT WITHIN REACH. NO FURTHER NEEDS AT THIS TIME.
--- NOTE | 2019-12-04 09:12 | NUR ---
INDEPENDENT WITH TEETH BRUSHING. LINEN CHANGED. FRESH WATER. WARM WASH CLOTH FOR FACE. CALL LIGHT WITHIN REACH. NO FURTHER NEEDS AT THIS TIME.
--- NOTE | 2019-12-04 12:08 | NUR ---
PATIENT IS UP IN CHAIR. FRESH WATER GIVEN AND CRYO CHECK. CALL LIGHT WITHIN REACH. NO FURTHER NEEDS AT THIS TIME.
--- NOTE | 2019-12-04 12:58 | NUR ---
PT SITTNG IN CHAIR, ALERT AND ORIENTED. PT SAID HOW HER FAMILY IS GETTING EVERYTHING READY AT HOME FOR HER RETURN, AND SHE SEEMED EXCITED. PT PLANS TO DC LATER TODAY AFTER P.T. AND A VISIT WITH DR GRANT. PT SEEMED PLEASED WITH HER PROGRESS. GAVE STEPHANIESSING
--- NOTE | 2019-12-04 14:37 | NUR ---
CRYO CHECK. PATIENT UP IN CHAIR. FRESH WATER GIVEN. CALL LIGHT WITHIN REACH. NO FURTHER NEEDS AT THIS TIME.
--- NOTE | 2019-12-04 16:00 | NUR ---
Assessment completed for Sherron. Pt pleasant [place] woman. Plans on dc to home to family who live with her. She will have meals delivered from the [place] and family will also cook. FWW ordered from [facility], they do not currently have drivers so family will flower picker. Plans on dc this afternoon when family are off work.
--- NOTE | 2019-12-05 08:00 | NUR ---
Discharge chart with therapy notes faxed to OP therapy at the [facility].
== END 2019-12-04 16:50 | disposition home or self-care (01) ==
LOC: MS 07:00 → DS 07:00 → MS 17:30 → DS 12-04 16:50
PROVIDERS: Specialist
PROC: 8E0YXBZ Computer Assisted Procedure of Lower Extremity (ICD-10-PCS; 2019-12-03)
PROC: 0SRC0J9 Replacement of Right Knee Joint with Synthetic Substitute, Cemented, Open Approach (ICD-10-PCS; principal; 2019-12-03 10:00)
DX: M17.11 Unilateral primary osteoarthritis, right knee (principal); J45.909 Unspecified asthma, uncomplicated; Z79.899 Other long term (current) drug therapy; Z88.8 Allergy status to other drugs, medicaments and biological substances
CPT/HCPCS: 01402; 64445; 64447; 64450; 76942; 97110; 97116; 97161; C1713; C1776; J0690; J1885; J2001; J2250; J2370; J2704; J7040; J7121

== ENCOUNTER 2022-04-04 11:42 | Emergency (ER) | payer MEDICARE, OTHER ==
[~2022-04-04] VITALS: Ht 149.9 cm; Wt 74.8 kg
[~2022-04-04 11:42] MED LIST changes: +ASPIRIN EC325 MG PO; +GABAPENTIN300 MG PO; +HYDROMORPHONE HC4 MG PO; +SENNA LAX8.6 MG PO
--- OUTSIDE RECORDS SUMMARY | 2022-04-04 11:44 | XMS ---
PreManage Notification: WM BARGER Security [place] Events No recent Security Events currently on file CRITERIA MET - Group Notification CARE PROVIDERS MOE PATEL Registered Nurse: [facility] 03/21/2018-[facility] PHONE: [phone] [facility] 04/20/2019-[facility] PHONE: [phone] Naa has no Care Guidelines for this patient. Care History Medical/Surgical 03/21/2018 [facility] PATIENT IS A [facility] MEMBER. PLEASE REFER PATIENT TO [facility] FOR NON EMERGENT MEDICAL NEEDS. [facility] CAN SEE PATIENTS SAME DAY FOR APTS IF PATIENT CALLS FIRST THING IN THE MORNING. E.D. VISIT COUNT (12 MO.) 1 LY [facility]jeda TOTAL 1 NOTE: Visits indicate total known visits. ED/UCC VISIT TRACKING (12 MO.) 04/04/2022 11:43 L[facility] OR TYPE: Emergency COMPLAINT: - SHORTNESS OF BREATH INPATIENT VISIT TRACKING (12 MO.) No inpatient visits to display in this time frame [email or web address]
[2022-04-04] MEDS ORDERED: TAMIFLU75 MG PO (13:19)
[2022-04-04] MEDS ORDERED: PREDNISONE20 MG PO (13:19)
== END 2022-04-04 13:30 | disposition home or self-care (01) ==
LOC: ED 11:42
DX: J10.1 Influenza due to other identified influenza virus with other respiratory manifestations (principal); J45.901 Unspecified asthma with (acute) exacerbation; J44.9 Chronic obstructive pulmonary disease, unspecified; K21.9 Gastro-esophageal reflux disease without esophagitis; Z88.8 Allergy status to other drugs, medicaments and biological substances; Z88.5 Allergy status to narcotic agent; Z88.6 Allergy status to analgesic agent; Z79.899 Other long term (current) drug therapy; Z79.82 Long term (current) use of aspirin; Z20.822 Contact with and (suspected) exposure to COVID-19
CPT/HCPCS: 87502; 99284; C9803; J7512; U0003